=== PATIENT | female | born 1950 | race African-American/Black ===

== ENCOUNTER 2022-08-19 07:50 | Outpatient (CLI) | payer MEDICARE, MEDICAID, SELFPAY ==
--- NOTE | ~2022-08-19 | CT_ITS ---
EXAMINATION: CT diagnostic chest wo con DATE: 08/19/2022 09:36 INDICATION: Increasing cough TECHNIQUE: Computed tomography (CT) of the chest was performed without intravenous contrast. The dose -length product (DLP) was 416.30 mGy-cm. Automated exposure control and iterative reconstruction tech nique were employed. COMPARISON: None FINDINGS: The lungs are free of acute opacities. No pleural effusion or pneumothorax. No pathological ly enlarged thoracic lymph nodes are identified. The heart size is normal. Calcified coronary artery atherosclerosis is noted. The liver is diffusely low in attenuation when compared with the spleen, co nsistent with hepatic steatosis. There is moderate thoracic spondylosis. IMPRESSION: 1. No CT correlate for the patient's symptoms. 2. Coronary artery disease. 3. Diffuse hepatic steatosis Reviewed, dictated and finalized at location F.
--- NOTE | 2022-08-30 13:08 | WPDPFTINT ---
PFT Procedure Performed PFT Procedure Performed Spirometry with Pre/Post Bronchodilator Plethysmography (Lung Vol) Diffusing Cap (DLCO) Flow Vol Loop PFT Interpretation DOS: 08/19/2022 REQUESTING: Qi Valladares PA-C REASON FOR TESTING: Asthma PULMONARY FUNCTION TESTS Results are reliable and reproducible. Spirometry: Pre bronchodilator FEV1 is 1.23 L, 67% predicted, decreased. Pre bronchodilator FVC is 2.09 L, 88%, normal. FEV1/FVC ratio is 59%, decreased consistent with airflow obstruction. FEF 25-75% is 0.49 L, 31% predicted, severely decreased. After bronchodilator FEV1 increases by 23%, 1.52 L, 290 meals this is statistically significant. FVC increases by 16%, 2.44 L. This is statistically significant. The MKV67-72% increases by 16% becomes 36% predicted, 0.57 L. Lung volumes: Total lung capacity 4.91 L, 110% normal. Residual volume 2.82 L, 134% upper limit of normal. RV/TLC 57% elevated consistent with air trapping. Airway resistance is 260%, increased. Diffusion: DLCO 15.1, 75% predicted, normal. DLCO/VA is 4.47, 106% predicted, normal. Flow volume loop: There is mild scooping of the expiratory limb consistent with obstruction. IMPRESSION: Mild obstructive ventilatory impairment with excellent response to bronchodilator. Normal lung volumes. Normal diffusion. Compared to the prior study the spirometry is improved, there is less air trapping and the diffusion has normalized. Prior study 06/04/2015, the FEV1 was 53%, 1.13 L and now it is 67%, improved. FVC was 1.76 L, 60%, now 88%, improved. The patient had FEV1/FVC 64% which was low, consistent with airflow obstruction. There was a 13% increase in the FEV1 and the FVC after bronchodilator administration, the FVC exceeded 200 mL. This is a significant response to bronchodilator. The TLC was 100%, similar to currently 110% the residual volume was 164% and now 134%, it was 3.10 L and now 2.82 L so the air trapping is improved. The DLCO was 14.1, 53% now it is 15.1, 75% so percentage twice the DLCO is better. DLCO/VA was 138% now 106%. This is stable. The airway resistance previously was 386% also elevated Ruby Bae MD
== END 2022-08-19 07:51 | disposition home or self-care (01) ==
PROVIDERS: PCP Internal Medicine Infectious Disease; Visit Provider Physician Assistant
DX: J45.909 Unspecified asthma, uncomplicated (principal); I25.10 Atherosclerotic heart disease of native coronary artery without angina pectoris; K76.0 Fatty (change of) liver, not elsewhere classified; M47.814 Spondylosis without myelopathy or radiculopathy, thoracic region
CPT/HCPCS: 71250; 94060; 94726; 94729

== ENCOUNTER 2022-12-16 07:29 | Outpatient (CLI) | payer MEDICARE, MEDICAID, SELFPAY ==
--- NOTE | 2022-12-16 07:44 | ECHO_ITS ---
Patient Info Name: Macey Pratt Age: 72 years : 1950 Gender: Female Ht: 64 in Wt: 249 lbs BSA: 2.32 m2 HR: 70 bpm BP: 156 / 91 mmHg Heart Rhythm: Sinus Rhythm Technical Quality: Good Exam Date: 12/16/2022 7:49 AM Exam Location: [facility] Patient Status: Outpatient Admit Date: 12/16/2022 Staff Ordering Physician: Ruby Bae MD Financial Wellness Coach: Yamileth Stovall RDCS Attending Provider: Ruby Bae MD Referring Physician: Kathia SMILEY; Exam Type: CA echo doppler color flow Study Info Indications R06.02 - Shortness of breath Complete two-dimensional, color flow and Doppler transthoracic echocardiogram is performed. Summary 1. Complete two-dimensional, color flow and Doppler transthoracic echocardiogram is performed. 2. Left ventricular chamber dimension is normal. 3. Left ventricular systolic function is normal, estimated at 55-60%. 4. There is no increased left ventricular wall thickness. 5. The left ventricular diastolic function is grade I diastolic dysfunction. 6. Global longitudinal strain is moderately elevated at -14 %. 7. There is mild mitral valve regurgitation. 8. There is no aortic valve stenosis. 9. There is trace tricuspid valve regurgitation. 10. No pulmonary hypertension, estimated pulmonary arterial systolic pressure is 30 mmHg. Left Ventricle Left ventricular chamber dimension is normal. Left ventricular systolic function is normal, estimated at 55-60%. There is no increased left ventricular wall thickness. The left ventricular diastolic function is grade I diastolic dysfunction. Global longitudinal strain is moderately elevated at -14 %. Right Ventricle Right ventricular chamber dimension is normal. Right ventricular systolic function is normal. Left Atria Left atrial chamber dimension is normal. Right Atria Right atrial chamber dimension is normal. Aortic Valve The aortic valve is trileaflet. There is no aortic valve stenosis. There is no aortic valve regurgitation. Pulmonic Valve The pulmonic valve is not well visualized. There is trace pulmonic regurgitation. Mitral Valve The mitral valve has normal leaflets. There is mild mitral valve regurgitation. The mitral valve annulus is mildly calcified. Tricuspid Valve The tricuspid valve leaflets are normal. There is trace tricuspid valve regurgitation. No pulmonary hypertension, estimated pulmonary arterial systolic pressure is 30 mmHg. Pericardium/Pleural The pericardium appears normal. There is small pericardial effusion. Inferior Vena Cava Normal inferior vena cava with >50% collapse upon inspiration consistent with normal right atrial pressure, 5 mmHg. Aorta The aortic root size at the sinus of Valsalva is normal. There is mild aortic atherosclerosis. Left Ventricular Outflow Tract Name Value Normal LVOT 2D LVOT Diameter 2.0 cm LVOT Doppler LVOT Peak Gradient 5 mmHg LVOT Mean Gradient 3 mmHg LVOT VTI 28 cm LVOT VTI/AV VTI Ratio 0.8 L
== END 2022-12-16 07:30 | disposition home or self-care (01) ==
LOC: ANHCARD 07:31
PROVIDERS: PCP Internal Medicine Infectious Disease; Visit Provider Internal Medicine Critical Care Medicine
DX: R06.02 Shortness of breath (principal); I34.0 Nonrheumatic mitral (valve) insufficiency
CPT/HCPCS: 93306

== ENCOUNTER 2023-09-14 10:42 | Outpatient (CLI) | payer MEDICARE, MEDICAID, SELFPAY ==
[2023-09-14 11:12] LABS: Basophils Percent Auto 0.4 % (0.2-1.2); Eosinophils Absolute Auto 0.4 K/mm3 (0-0.3); Eosinophils Percent Auto 5.1 % (0-4.4); Hematocrit 39.7 % (37.0-47.0); Hemoglobin 13.1 g/dL (12.0-15.0); Immature Granulocyte Absolute 0.05 K/mm3 (0.00-0.031); Immature Granulocyte Percent A 0.7 % (0-0.5); Lymphocytes Absolute Auto 2.42 K/mm3 (0.9-3.2); Lymphocytes Percent Auto 35.4 % (18.3-44.2); Mean Corpuscular Hemoglobin 30.8 pg (26-34); Mean Corpuscular Volume 93.2 fl (80-100); Mean Platelet Volume 9.7 fl (7.4-10.4); Monocytes Absolute Auto 0.5 K/mm3 (0.1-0.6); Monocytes Percent Auto 7.9 % (2.6-8.5); Neutrophils Absolute Auto 3.5 K/mm3 (1.3-6.7); Neutrophils Percent Auto 50.5 % (45.5-73.1); Platelet Count Result 250 k/mm3 (150-375); Red Blood Count 4.26 M/mm3 (4.2-5.4); Red Cell Distribution Width 13.2 % (11.5-14.5); White Blood Count 6.8 K/mm3 (4.5-10.0)
[2023-09-14 16:58] LABS: Alanine Aminotransferase 29 U/L (6-35); Albumin Level 4.4 g/dL (3.5-5.1); Alkaline Phosphatase 82 U/L (38-126); Anion Gap 8 mmol/L (8-16); Aspartate Amino Transferase 37 U/L (14-36); Bilirubin,Total 0.8 mg/dL (0.2-1.3); Blood Urea Nitrogen 13 mg/dL (7-17); Carbon Dioxide 32 mmol/L (22-30); Chloride 98 mmol/L (98-107); Estimated Glomerular Filt Rate > 60; Glucose 105 mg/dL (65-110); Potassium 3.3 mmol/L (3.4-5.0); Sodium 138 mmol/L (137-145)
[2023-09-14 17:22] LABS: Immunoglobulin A 117 mg/dL (70-400); Immunoglobulin M 40 mg/dL (40-230)
[2023-09-14 19:25] LABS: Immunoglobulin G 2867 mg/dL (700-1600)
[2023-09-17 20:32] LABS: Kappa\\Lambda Light Chains 0.17 (0.26-1.65); Lambda Light Chain 116.3 mg/L (5.7-26.3)
[2023-09-18 12:26] LABS: Abnormal Protein Band 1 1.7 g/dL; Albumin 4.1 g/dL (3.8-4.8); Alpha 1 Globulin 0.3 g/dL (0.2-0.3); Alpha 2 Globulin 0.9 g/dL (0.5-0.9); Beta 1 Globulin 0.5 g/dL (0.4-0.6); Gamma Globulin 2.2 g/dL (0.8-1.7); Protein, Total 8.4 g/dL (6.1-8.1)
== END 2023-09-14 10:43 | disposition home or self-care (01) ==
PROVIDERS: PCP Internal Medicine Infectious Disease; Visit Provider Internal Medicine Hematology & Oncology
DX: D72.9 Disorder of white blood cells, unspecified (principal)
CPT/HCPCS: 36415; 80053; 82784; 83883; 84155; 84165; 85025

== ENCOUNTER 2023-10-11 00:31 | Day surgery (SDC) | payer MEDICARE, MEDICAID, SELFPAY ==
[2023-10-10 17:24] VITALS: BMI 40.4
--- NOTE | ~2023-10-11 | BM_ITS ---
EXAMINATION: CCL bone marrow asp w bx diag ORDER COMPLETED DATE: 10/11/2023 09:49 INDICATION: Plasma cell disorder TECHNIQUE: A time-out was performed to verify the patient's name, date of , and procedure to b e performed. The procedure including the risks, benefits, and alternatives was discussed with the pat ient. Risks discussed included bleeding and infection. The patient understood the risks and agreed to proceed. The skin overlying the right posterior iliac spine was prepped and draped in usual sterile fashion. Anesthetic was administered with 1% lidocaine subcutaneously. Systemic analgesia was provide d with 50 mcg fentanyl IV. An 11 gauge needle was inserted into the ilium with fluoroscopic guidance. Bone marrow was aspirated. An 8 gauge needle was then inserted into the ilium with fluoroscopic guid ance. A core bone marrow biopsy was obtained. There were no immediate complications. Fluoroscopy expo sure time was 0.1 minutes. The total number of images was 18. FINDINGS: Real-time fluoroscopy demonstrates a marker overlying the right posterior iliac spine. IMPRESSION: 1. Successful fluoro-guided bone marrow aspiration. 2. Successful fluoro-guided bone marrow core biopsy. Reviewed, dictated and finalized at location A. HOUSE LOGISTICS COORDINATOR
[2023-10-11 07:57] VITALS: BP 143/71; PULSE 77; RESP 15; TEMP 36.3; O2SAT 99; BMI 38.0
[2023-10-11 08:07] LABS: Basophils Percent Auto 0.4 % (0.2-1.2); Eosinophils Percent Auto 0.7 % (0-4.4); Hematocrit 39.1 % (37.0-47.0); Hemoglobin 12.7 g/dL (12.0-15.0); Immature Granulocyte Absolute 0.03 K/mm3 (0.00-0.031); Immature Granulocyte Percent A 0.5 % (0-0.5); Lymphocytes Absolute Auto 2.51 K/mm3 (0.9-3.2); Lymphocytes Percent Auto 44.8 % (18.3-44.2); Mean Corpuscular HGB Conc 32.5 g/dl (32-36); Mean Corpuscular Hemoglobin 30.2 pg (26-34); Mean Corpuscular Volume 92.9 fl (80-100); Mean Platelet Volume 9.5 fl (7.4-10.4); Monocytes Absolute Auto 0.6 K/mm3 (0.1-0.6); Monocytes Percent Auto 10.4 % (2.6-8.5); Neutrophils Absolute Auto 2.4 K/mm3 (1.3-6.7); Neutrophils Percent Auto 43.2 % (45.5-73.1); Platelet Count Result 358 k/mm3 (150-375); Red Blood Count 4.21 M/mm3 (4.2-5.4); Red Cell Distribution Width 13.9 % (11.5-14.5); White Blood Count 5.6 K/mm3 (4.5-10.0)
--- NOTE | 2023-10-11 09:04 | WPDMODSED ---
Moderate Sedation Note-Pt Data Patient Data Diagnosis: MGUS Present Complaint: MGUS Procedure to be performed/Plan: bone marrow biopsy Allergies Allergy/AdvReac Type Severity Reaction Status Date / Time egg Allergy Unknown Rash Verified 10/11/23 07:55 latex Allergy Unknown Hives Verified 10/11/23 07:55 adhesive Allergy Rash Verified 10/11/23 07:55 chicken derived Allergy Hives Verified 10/11/23 07:55 atorvastatin AdvReac Unknown Cramping Verified 10/11/23 07:55 of the Muscles rosuvastatin AdvReac Unknown Cramping Verified 10/11/23 07:55 of the Muscles Home Medications Medication Instructions Recorded Confirmed Type Black Elderberry 4,000 mg PO DAILY 03/06/20 10/10/23 History cod liver oil 2 cap PO HS 03/06/20 10/10/23 History cyanocobalamin (vitamin B-12) 2,500 mcg sublingual DAILY 03/06/20 10/10/23 History 2,500 mcg sublingual tablet (Vitamin B-12) aspirin 81 mg tablet,delayed 81 mg PO DAILY 04/28/20 10/10/23 History release (Adult Aspirin Regimen) ergocalciferol (vitamin D2) 1,250 1,250 mcg PO MONTHLY 04/28/20 10/10/23 History mcg (50,000 unit) capsule (Vitamin D2) fenofibrate 160 mg tablet 160 mg PO DAILY 04/28/20 10/10/23 History hydrochlorothiazide 25 mg tablet 25 mg PO DAILY 04/28/20 10/10/23 History metformin 850 mg tablet 850 mg PO QACDINNER 04/28/20 10/10/23 History montelukast 10 mg tablet 10 mg PO HS 04/28/20 10/10/23 History omeprazole 20 mg capsule,delayed 20 mg PO DAILY 04/28/20 10/10/23 History release ezetimibe 10 mg tablet 10 mg PO DAILY 05/01/20 10/10/23 History memantine 10 mg tablet 10 mg PO DAILY 05/01/20 10/10/23 History metoprolol succinate 200 mg 200 mg PO DAILY 05/01/20 10/10/23 History tablet,extended release 24 hr fluticasone propionate 50 1 spray intranasal BID #16 grams 08/02/22 10/10/23 Rx mcg/actuation nasal spray,suspension (Flonase Allergy Relief) fluticasone furoate 100 1 inh inhalation DAILY 03/28/23 10/10/23 History mcg-vilanterol 25 mcg/dose inhalation powder (Breo Ellipta) ascorbate calcium (vitamin C) 500 500 mg PO DAILY 08/23/23 10/10/23 History mg tablet vitamin E (dl, acetate) 45 mg (100 45 mg PO DAILY 08/23/23 10/10/23 History unit) capsule prednisone 10 mg tablet See Rx Instructions PO DAILY #34 09/27/23 10/10/23 Rx tabs acetaminophen 325 mg tablet 650 mg PO Q6H PRN Pain (Scale 10/10/23 10/10/23 History Score 1-3) albuterol sulfate 90 mcg/actuation 2 puff inhalation Q4-6H PRN 10/10/23 10/11/23 History aerosol inhaler (Ventolin HFA) Wheezing semaglutide 0.25 mg or 0.5 mg (2 0.25 mg subcut WEEKLY 10/10/23 10/10/23 History mg/3 mL) subcutaneous pen injector (Ozempic) Sedation/Anesthesia: No previous sedation/anesthesia problems (including family history). [facility] Past Medical History Medical History Asthma Essential hypertension GERD (gastroesophageal reflux disease) Shortness of Breath Type 2 diabetes mellitus Family History Family History Mother Cerebrovascular accident, Onset Age: 70 Family history of rheumatoid arthritis, Onset Age: 70 Grandparent Family history of malignant neoplasm of ovary, Onset Age: 82 Father Patient's father is in good health Other Diabetes mellitus Hypertension Social History Social History Smoking packs per day: 0 Smoking cigarettes per day: 0.0 Years smoked: 0 Smoking pack-years: 0.00 Smoking status: Never smoker Second hand tobacco smoke exposure: No Alcohol intake: never Substance use type: does not use Living arrangements: alone Mod Sed Physical Exam Physical Exam Pre Procedural Exam: Normal: Appearance, Eyes, Throat, Lungs, Heart Rate, Heart Rhythm and Abdomen Hours since solid foods: 15 Hours since liquid intake: 15 Mallampati Cla
[2023-10-11 09:45] VITALS: BP 131/65; PULSE 68; RESP 18; O2SAT 100
[2023-10-11 10:00] VITALS: BP 122/65; PULSE 71; RESP 18; O2SAT 99
[2023-10-11 10:15] VITALS: BP 119/66; PULSE 68; RESP 15; O2SAT 99
[2023-10-11 10:30] VITALS: BP 124/64; PULSE 71; RESP 17; O2SAT 97
[2023-10-11 10:47] VITALS: BP 114/50; PULSE 67; RESP 14; O2SAT 99
== END 2023-10-11 09:55 | disposition home or self-care (01) ==
PROVIDERS: Radiology Diagnostic Radiology; PCP Internal Medicine Infectious Disease; Visit Provider Radiology Diagnostic Radiology
DX: C90.00 Multiple myeloma not having achieved remission (principal); D47.2 Monoclonal gammopathy; J45.909 Unspecified asthma, uncomplicated; I10 Essential (primary) hypertension; K21.9 Gastro-esophageal reflux disease without esophagitis; E11.9 Type 2 diabetes mellitus without complications; Z79.82 Long term (current) use of aspirin; Z79.84 Long term (current) use of oral hypoglycemic drugs; Z79.51 Long term (current) use of inhaled steroids; Z79.85 Long-term (current) use of injectable non-insulin antidiabetic drugs
CPT/HCPCS: 36415; 38222; 85025; 85610; 88184; 88185; 88305; 88311; 88313; 88341; 88342; 88364; 88365; J1642; J2250; J3010; J7040

== ENCOUNTER 2023-11-03 09:11 | Outpatient (CLI) | payer MEDICARE, MEDICAID, SELFPAY ==
--- NOTE | ~2023-11-03 | PE_ITS ---
EXAMINATION: PET skull to mid thigh DATE: 11/03/2023 13:08 INDICATION: Multiple myeloma. TECHNIQUE: Blood glucose level was 100 mg/dL. 9.474 mCi of 18-fluorodeoxyglucose (18-FDG) was adminis tered i.v. Low dose computed tomography (CT) images were acquired from the base of the brain to the p roximal thighs for attenuation correction and anatomic localization. Automated exposure control was e mployed. Dose-length product (DLP) was 1134 mGy-cm. Positron emission tomography (PET) images were ac quired in the same distribution. COMPARISON: Chest CT 08/19/2022 FINDINGS: Head/neck: There is mucosal thickening in the paranasal sinuses. There are no pathologically enlarged lymph nodes. Chest: There is no pneumonia or pleural effusion. The heart size is normal. There are coronary artery calcifications. No pericardial effusion. Abdomen/pelvis/proximal thighs: There is diffuse hepatic steatosis. There are changes of cholecystect angelica. The spleen, pancreas, and right adrenal gland are normal. There is chronic thickening of left ad renal gland, likely benign. The kidneys are normal. There is diverticulosis of the colon without evid ence of diverticulitis. There are no dilated loops of bowel. The appendix is normal. There are no pat hologically enlarged lymph nodes. There is no free intraperitoneal fluid. There is no osseous maligna ncy. IMPRESSION: 1. No evidence of multiple myeloma. Reviewed, dictated and finalized at location A. RATORY TECHNOLOGIST
[2023-11-03 09:38] LABS: Glucose Point of Care 100 mg/dl (65-105)
== END 2023-11-03 09:12 | disposition home or self-care (01) ==
PROVIDERS: PCP Internal Medicine Infectious Disease; Visit Provider Internal Medicine Hematology & Oncology
DX: C90.00 Multiple myeloma not having achieved remission (principal)
CPT/HCPCS: 78815; A9552

== ENCOUNTER 2024-04-06 09:13 | Outpatient (CLI) | payer MEDICARE, MEDICAID, SELFPAY ==
[2024-04-06 09:29] LABS: Basophils Percent Auto 0.7 % (0.2-1.2); Eosinophils Absolute Auto 0.3 K/mm3 (0-0.3); Eosinophils Percent Auto 5.3 % (0-4.4); Hematocrit 38.2 % (37.0-47.0); Hemoglobin 12.4 g/dL (12.0-15.0); Immature Granulocyte Absolute 0.04 K/mm3 (0.00-0.031); Immature Granulocyte Percent A 0.7 % (0-0.5); Lymphocytes Absolute Auto 2.08 K/mm3 (0.9-3.2); Lymphocytes Percent Auto 35.4 % (18.3-44.2); Mean Corpuscular HGB Conc 32.5 g/dl (32-36); Mean Corpuscular Hemoglobin 30.7 pg (26-34); Mean Corpuscular Volume 94.6 fl (80-100); Mean Platelet Volume 9.8 fl (7.4-10.4); Monocytes Absolute Auto 0.4 K/mm3 (0.1-0.6); Monocytes Percent Auto 7.5 % (2.6-8.5); Neutrophils Percent Auto 50.4 % (45.5-73.1); Platelet Count Result 222 k/mm3 (150-375); Red Blood Count 4.04 M/mm3 (4.2-5.4); White Blood Count 5.9 K/mm3 (4.5-10.0)
[2024-04-06 12:54] LABS: Alanine Aminotransferase 15 U/L (6-35); Albumin Level 4.2 g/dL (3.5-5.1); Alkaline Phosphatase 64 U/L (38-126); Anion Gap 2 mmol/L (4-12); Aspartate Amino Transferase 24 U/L (14-36); Bilirubin,Total 0.5 mg/dL (0.2-1.3); Blood Urea Nitrogen 11 mg/dL (7-17); Calcium 9.1 mg/dL (8.4-10.2); Carbon Dioxide 29 mmol/L (22-30); Chloride 106 mmol/L (98-107); Estimated Glomerular Filt Rate > 60; Glucose 113 mg/dL (65-110); Potassium 3.8 mmol/L (3.4-5.0); Sodium 137 mmol/L (137-145)
[2024-04-06 13:02] LABS: Immunoglobulin A 88 mg/dL (70-400); Immunoglobulin G 2487 mg/dL (700-1600); Immunoglobulin M 37 mg/dL (40-230)
[2024-04-08 06:48] LABS: Protein, Total 7.8 g/dL (6.1-8.1)
[2024-04-09 11:18] LABS: Kappa\\Lambda Light Chains 0.14 (0.26-1.65); Lambda Light Chain 95.1 mg/L (5.7-26.3)
[2024-04-10 08:24] LABS: Abnormal Protein Band 1 1.6 g/dL (NONE DETECTED); Albumin 4.1 g/dL (3.8-4.8); Alpha 1 Globulin 0.3 g/dL (0.2-0.3); Alpha 2 Globulin 0.8 g/dL (0.5-0.9); Beta 1 Globulin 0.4 g/dL (0.4-0.6)
== END 2024-04-06 09:14 | disposition home or self-care (01) ==
LOC: ANHLAB 09:16
PROVIDERS: PCP Internal Medicine Infectious Disease; Visit Provider Internal Medicine Hematology & Oncology
DX: C90.00 Multiple myeloma not having achieved remission (principal)
CPT/HCPCS: 36415; 80053; 82784; 83883; 84155; 84165; 85025

== ENCOUNTER 2024-09-04 09:09 | Outpatient (CLI) | payer MEDICARE, MEDICAID, SELFPAY ==
[2024-09-04 09:42] LABS: Basophils Percent Auto 0.6 % (0.2-1.2); Eosinophils Absolute Auto 0.2 K/mm3 (0-0.3); Eosinophils Percent Auto 2.6 % (0-4.4); Hematocrit 42.8 % (37.0-47.0); Immature Granulocyte Absolute 0.04 K/mm3 (0.00-0.031); Immature Granulocyte Percent A 0.6 % (0-0.5); Lymphocytes Percent Auto 38.8 % (18.3-44.2); Mean Corpuscular HGB Conc 32.7 g/dl (32-36); Mean Corpuscular Hemoglobin 30.6 pg (26-34); Mean Corpuscular Volume 93.4 fl (80-100); Mean Platelet Volume 9.9 fl (7.4-10.4); Monocytes Absolute Auto 0.5 K/mm3 (0.1-0.6); Monocytes Percent Auto 8.6 % (2.6-8.5); Neutrophils Percent Auto 48.8 % (45.5-73.1); Platelet Count Result 246 k/mm3 (150-375); Red Blood Count 4.58 M/mm3 (4.2-5.4); Red Cell Distribution Width 13.1 % (11.5-14.5); White Blood Count 6.2 K/mm3 (4.5-10.0)
[2024-09-04 11:45] LABS: Potassium 3.5 mmol/L (3.4-5.0)
[2024-09-04 11:47] LABS: Alanine Aminotransferase 16 U/L (6-35); Albumin Level 4.6 g/dL (3.5-5.1); Alkaline Phosphatase 68 U/L (38-126); Anion Gap 10 mmol/L (4-12); Aspartate Amino Transferase 23 U/L (14-36); Bilirubin,Total 0.7 mg/dL (0.2-1.3); Blood Urea Nitrogen 17 mg/dL (7-17); Calcium 9.9 mg/dL (8.4-10.2); Carbon Dioxide 32 mmol/L (22-30); Chloride 96 mmol/L (98-107); Estimated Glomerular Filt Rate 59; Glucose 101 mg/dL (65-110); Sodium 138 mmol/L (137-145)
[2024-09-04 12:41] LABS: Immunoglobulin A 98 mg/dL (70-400); Immunoglobulin M 45 mg/dL (40-230)
[2024-09-04 12:46] LABS: Immunoglobulin G 3229 mg/dL (700-1600)
[2024-09-05 15:19] LABS: Protein, Total 8.7 g/dL (6.1-8.1)
[2024-09-10 16:14] LABS: Kappa\\Lambda Light Chains 0.12 (0.26-1.65); Lambda Light Chain 119.9 mg/L (5.7-26.3)
== END 2024-09-04 09:10 | disposition home or self-care (01) ==
LOC: ANHLAB 09:14
PROVIDERS: PCP Internal Medicine Infectious Disease; Visit Provider Internal Medicine Hematology & Oncology
DX: C90.00 Multiple myeloma not having achieved remission (principal)
CPT/HCPCS: 36415; 80053; 82784; 83883; 84155; 84165; 85025

== ENCOUNTER 2025-05-29 06:50 | Inpatient (IN) | payer MEDICARE, MEDICAID, SELFPAY ==
[2025-05-29] VITALS (37 sets, daily range): BP systolic 142–181; BP diastolic 65–94; PULSE 66–122; RESP 14–26; TEMP 36.6–37; O2SAT 94–100; BMI 40.1
--- NOTE | 2025-05-29 | ECHO_ITS ---
Patient Info Name: Macey Pratt Age: 74 years : 1950 Gender: Female Ht: 64 in Wt: 231 lbs BSA: 2.23 m2 Technical Quality: Good Exam Date: 05/29/2025 2:41 PM Patient Status: I Admit Date: 05/29/2025 Exam Type: CA echo doppler color flow Complete two-dimensional, color flow and Doppler transthoracic echocardiogram is performed. Staff Referring Physician: Sigifredo Riddle MD Occupational Therapy Supervisor: Ginger King Attending Provider: Uziel Chen MD Summary 1. Complete two-dimensional, color flow and Doppler transthoracic echocardiogram is performed. 2. Left ventricular chamber dimension is normal. 3. Left ventricular systolic function is normal, estimated at 60-65. 4. The left ventricular diastolic function is grade I diastolic dysfunction. 5. E/e' 10 is mildly elevated. 6. Left atrial chamber dimension is mildly enlarged. 7. There is mild aortic valve sclerosis. 8. There is trace mitral valve regurgitation. 9. Mild pulmonary hypertension, estimated pulmonary arterial systolic pressure is 41 mmHg. Left Ventricle E/e' 10 is mildly elevated. Left ventricular chamber dimension is normal. Left ventricular systolic function is normal, estimated at 60-65. The left ventricular diastolic function is grade I diastolic dysfunction. Right Ventricle Right ventricular chamber dimension is normal. Right ventricular systolic function is normal and with normal TAPSE 2.7 cm. Left Atria Left atrial chamber dimension is mildly enlarged. Right Atria Right atrial chamber dimension is normal. Aortic Valve The aortic valve is trileaflet. There is mild aortic valve sclerosis. There is no aortic valve stenosis. There is no aortic valve regurgitation. Pulmonic Valve There is no pulmonic regurgitation. Mitral Valve There is no mitral valve stenosis. There is trace mitral valve regurgitation. Tricuspid Valve There is no tricuspid valve regurgitation. Mild pulmonary hypertension, estimated pulmonary arterial systolic pressure is 41 mmHg. Pericardium/Pleural There is no pericardial effusion. Inferior Vena Cava Normal inferior vena cava with >50% collapse upon inspiration consistent with normal right atrial pressure, 5 mmHg. Aorta The aortic root size at the sinus of Valsalva is normal. Left Ventricular Outflow Tract Name Value Normal LVOT 2D LVOT Diameter 2.2 cm LVOT Doppler LVOT Peak Velocity 125 cm/s LVOT Peak Gradient 6 mmHg LVOT Mean Gradient 4 mmHg LVOT VTI 28 cm LVOT VTI/AV VTI Ratio 0.7 LVOT Stroke Volume 105 ml LVOT CO 8.0 l/min LVOT CI 3.6 l/min/m2 Pulmonic Valve Name Value Normal PV Doppler PV Peak Velocity 124 cm/s PV Peak Gradient 6 mmHg Mitral Valve Name Value Normal MV Diastolic Function MV E Peak Velocity 105 cm/s MV A Peak Velocity 137 cm/s MV E/A 0.8 MV Decel Time (PW) 208 ms MV Annular TDI MV E/e' (Septal) 14.4 MV E/e' (Lateral) 8.6 MV E/e' (Average) 11.5 Tricuspid Valve Name Value Normal TV Regurgitation Doppler TR Peak Velocity 299 cm/s TR Peak Gradient 24 mmHg Estimated PAP/RSVP RA Pressure 5 mmHg <=5 PA Systolic Pressure 41 mmHg <36 RV Systolic Pressure 41 mmHg <36 TV Annular TDI TV Lateral Kita s' Velocity 12.1 cm/s >=9.5 Aortic Valve Name Value Normal AV Doppler AV Peak Velocity 193 cm/s AV Peak Gradient 15 mmHg AV Mean Gradient 8 mmHg AV VTI 43 cm AV Area (Cont Eq VTI) 2.5 cm2 >=3.0 AV Area (Cont Eq Travon) 2.4 cm2 AV DI (Travon) 0.64 AV Regurgitation 2D LVOT Area 3.8 cm2 Ventricles Name Value Normal LV Dimensions 2D/MM IVS Diastolic Thickness (2D) 0.9 cm 0.6-1.0 LVID Diastole (2D) 4.0 cm 3.8-5.2 LVIW Diastolic Thickness (2D) 0.9 cm 0.6-0.9 LVID Systole (2D) 3.0 cm 2.2-3.5 LVOT Diameter 2.2 cm LV Mass (2D Cubed) 110.94 g 67.00-162.00 LV Mass Index (2D Cubed) 50 g/m2 43-95 Relative Wall Thickness (2D) 0.45 <=0.42 LV Fractional Shortening/Ejection Fraction 2D/MM LV Fractional Shortening (2D) 24 % 27-45 LV EF (2D Teichholz) 48 % LV Diastolic Volume (4C MOD) 108 ml LV EF (4C MOD) 61 % LV Diastolic Volume (2C MOD) 89 ml LV EF (2C MOD) 53 % LV Diastolic Volume (BP MOD) 99 ml 46-106 LV Diastolic Volume Index (BP MOD) 44 ml/m2 29-61 LV Systolic Volume (BP MOD) 42 ml 14-42 LV Systolic Volume Index (BP MOD) 19 ml/m2 8-24 LV EF (BP MOD) 58 % 54-74 LV Diastolic Length (4C) 8.9 cm LV Systolic Length (4C) 7.5 cm LV Stroke Volume (4C MOD) 66 ml Atria Name Value Normal LA Dimensions LA Volume (4C A-L) 63 ml LA Volume (BP A-L) 68 ml RA Dimensions RA Systolic Major [place] Length (4C) 4.6 cm 2.2-2.8 RA Area (4C) 15.3 cm2 <=18.0 Report Signatures
--- NOTE | ~2025-05-29 | XR_ITS ---
EXAMINATION: XR chest 2V 05/29/2025 07:28 INDICATION: Left-sided chest pain PROCEDURE: 2 view chest COMPARISON: Comparison to multiple prior studies sequentially, with oldest reviewed study dated 04/28. FINDINGS: The lungs are clear. The cardiomediastinal silhouette is within normal limits. There are no pleural effusions. There is no pneumothorax suspected. IMPRESSION: 1: NO ACUTE CARDIOPULMONARY DISEASE. Reviewed, dictated and finalized at location A.
--- NOTE | ~2025-05-29 | CT_ITS ---
EXAMINATION: CT abdomen pelvis w con DATE: 05/29/2025 08:08 INDICATION: Epigastric pain. TECHNIQUE: Computed tomography (CT) of the abdomen and pelvis was performed with 100 cc Omnipaque 350 intravenous contrast. The dose-length product was 1431.84 mGy-cm. Automated exposure control and iterative reconstruction technique were employed. COMPARISON: None. FINDINGS: Lung bases unremarkable. No significant pleural or pericardial effusion. Heart size normal. Fatty infiltration of the liver. Status post cholecystectomy. The spleen, pancreas, adrenal glands a nd kidneys are unremarkable. However unremarkable. Status post cholecystectomy. Colonic diverticulosi s without evidence for diverticulitis. Small hiatal hernia. No significant vascular abnormality. No l ymphadenopathy. There is cirrhosis of the liver. No free air or free fluid. No abnormal pelvic masses or fluid collections. Severe lumbar spondylosis. IMPRESSION: 1. No acute abdominal abnormality. 2: Cirrhosis of the liver with fatty infiltration. 3: Status post cholecystectomy with expected prominence of the bile ducts. Reviewed, dictated and finalized at location A.
--- NOTE | 2025-05-29 06:51 | ECG_ITS ---
Test Date: 2025-05-29 06:56:41 Measurements Intervals [place] Rate: 87 P: 48 DE: 171 QRS: 36 QRSD: 78 T: 27 QT: 358 QTc: 431 Interpretive Statements SINUS RHYTHM NONSPECIFIC ST ABNORMALITY ABNORMAL ECG No previous ECG available for comparison Electronically Signed On 05-29-2025 10:07:16 CDT by Robert Victor M.D.
--- OUTSIDE RECORDS SUMMARY | 2025-05-29 06:51 | XMS_ITS | Continuity of Care Document ---
Author Organization [facility] Address [id number] [place] [address] [address] [place] [address] Phone Care Team Providers Care Photographer Scientific Name Role Phone Marta Sabillon Unavailable Unavailable Procedures Procedure Date Eye Exam & Treatment Eye Exam & Treatment Advance Directives Directive Yes / No Effective Date File Name No Information Encounters Encounter Description Practice Location Reason(s) For Visit Diagnoses Date Provider Providers Copied on Encounter [facility], [address] [place] [address] [address], [place], [place], [id number], tel:[phone] [facility] No Information [id number] Ramandeep Lozano. [address] , [address], [place], [place], [facility], . tel:[phone] [facility], [address] [place] [address] [address], [place], [place], [id number], tel:[phone] [facility] No Information [address] Ramandeep Lindsey [address] , [address], [place], [place], [facility], . tel:[phone] Family History Family Member Type Diagnosis Age At Onset No Information Payers Payer name Insurance type Covered republican ID Authorlibbya nielsjennyfer(s) Medicaid [facility] [id number] Social History Type Description Quantity Date Captured Comments Sex Female Smoking Status No Information Chief Complaint And Reason For Visit No Information Reason For Referral Reason For Referral No Information History Of Present Illness Encounter Date Complaint History Of Prese nt Illness No Information Functional Status Date Functional Assessmen t No Information Instructions Date Instruction Additional Infor mation No Information Assessments Type Assessment Date No Information Patient Care Teams Name Effective Dates (start - stop) Status Members No Information
--- OUTSIDE RECORDS SUMMARY | 2025-05-29 06:52 | XMS_ITS | Clinical Summary ---
Author Organization [facility] Address [address] [place] [id number] Care Team Providers Care Tool Maintenance Worker Name Role Phone Daly Servin MD Primary Care Provider Zofia Ordaz MD Unavailable [phone] Romeo Ascencio MD Unavailable Allergies Active Allergy Reactions Criticality Noted Date Comments Adhesive Hives,Rash Medium 11/20/2019 Atorvastatin Unknown 11/02/2012 Chicken Derived Hives High 04/20/2019 Egg Shortness of breath,Hives High Latex Hives,Rash Medium 06/14/2017 Rosuvastatin Calcium Unknown 08/31/2012 Medications ergocalciferol (VITAMIN D) 50,000 unit capsule TK ONE C PO Q WEEK 3 7 Active ZETIA 10 mg tablet 7 Active ipratropium-albut peña (DUO-NEB) 0.5-2.5 mg/3 mL nebulizer solutionIndicatio ns:Chronic Obstructive Pulmonary Disease with Bronchospasms 11 7 Active metFORMIN (GLUCOPHAGE) 850 mg tablet Take 1 tablet (850 mg total) by mouth 2 (two) times a day with meals Active metoprolol XL (TOPROL-XL) 100 mg 24 hr tablet Take 1 tablet (100 mg total) by mouth daily Active hydroCHLOROthiazi de (HYDRODIURIL) 25 mg tablet Take 1 tablet (25 mg total) by mouth daily Active montelukast (SINGULAIR) 10 mg tablet Take 1 tablet (10 mg total) by mouth nightly Active albuterol HFA (PROVENTIL HFA,VENTOLIN HFA,PROAIR HFA) 90 mcg/actuation inhaler Inhale 90 puffs Acti ve fluticasone-vilan terol (BREO ELLIPTA) 200-25 mcg/dose diskus inhaler 25-200 Disk. 8 Active ipratropium (ATROVENT HFA) 17 mcg/actuation inhaler Inhale 17 puffs 4 times daily Active cholecalciferol (VITAMIN D-3) 50,000 unit capsule Take 1 capsule (50,000 Units total) by mouth once a week Active fluticasone propion-salmetero l (ADVAIR DISKUS) 250-50 mcg/dose diskus inhaler Advair Diskus 250 mcg-50 mcg/dose powder for inhalation Active lisinopril (PRINIVIL,ZESTRIL ) 20 mg tabletIndications :hypertension Take 1 tablet (20 mg total) by mouth every morning Active cyanocobalamin (Vitamin B-12) 1,000 mcg/mL injectionIndicati ons:Prevention of Vitamin B12 Deficiency Inject 1 mL (1,000 mcg total) into the muscle as instructed every 30 (thirty) days Active oxyCODONE (ROXICODONE) solution 5 mg/5 mLIndications:Kadie n Take 5 mL (5 mg total) by mouth every 4 (four) hours as needed for pain 75 mL 0 Active Additional Information Patient not taking.Reported on 01/16/2025 docusate sodium (COLACE) 100 mg capsuleIndication s:constipation Take 1 capsule (100 mg total) by mouth 2 (two) times a day 30 capsule 0 Active Additional Information Patient not taking.Reported on 01/16/2025 ondansetron (ZOFRAN) 4 mg tablet Take 1 tablet (4 mg total) by mouth every 6 (six) hours as needed for nausea or vomiting 20 tablet 2 0 Active Additional Information Patient not taking.Reported on 01/16/2025 acetaminophen (TYLENOL) 325 mg tablet Take 2 tablets (650 mg total) by mouth every 6 (six) hours as needed for pain 30 tablet 0 Active azithromycin (Zithromax) 250 mg tablet Take 2 tablets (500 mg total) by mouth daily 11/11/201 3 Active cloNIDine (CATAPRES) 0.1 mg tablet Take 1 tablet by mouth every 8 hours 3 Active furosemide (LASIX) 20 mg tablet Take 1 tablet by mouth daily 3 Active omeprazole (PriLOSEC) 40 mg capsule Take 1 capsule by mouth daily 3 Active tiotropium (Spiriva with HandiHaler) 18 mcg per inhalation capsule Place 1 puff (1 capsule total) into inhaler and inhale daily 3 Active memantine (NAMENDA) 10 mg tabletIndications :Late onset Alzheimer's disease without behavioral disturbance (HCC) Take 1 tablet (10 mg total) by mouth 2 (two) times a day 60 tablet 0 Active ascorbic acid (vitamin C) 100 mg tablet Take 1 tablet (100 mg total) by mouth daily Active aspirin 81 mg enteric coated tablet Take 1 tablet (81 mg total) by mouth daily Active pseudoephedrine (Sudafed) 30 mg tablet Take 1 tablet (30 mg total) by mouth every 4 (four) hours as needed Active Ozempic 0.25 mg or 0.5 mg (2 mg/3 mL) pen injector injection INJECT 0.25MG UNDER THE SKIN ONCE A WEEK Active blood-glucose meter (Accu-Chek Guide Glucose Meter) misc USE DIRECTED TO TEST THREE DAYS A WEEK Active lancets (Accu-Chek Softclix Lancets) misc USE THREE DAYS A WEEK TO TEST Active donepeziL (ARICEPT) 10 mg tablet Take half tablet by mouth once a day for two weeks, then one tablet once a day 30 tablet 5 Active Active Problems Problem Noted Date Diagnosed Date 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 Overview (09/11/2019): Added automatically from request for surgery [id number] Calculus of gallbladder with out cholecystitis without obstruction 09/11/2019 Overview (09/11/2019): Added automatically from request for surgery [id number] Morbid obesity with BMI of 40.0-44.9, adult 06/2019 Endometrial cancer 01/09/2018 Type 2 diabetes mellitus 11/21/2017 Osteoporosis 11/21/2017 Gastroesophageal reflux disease 11/21/2017 Hypertension 11/03/2017 Hyperlipidemia 11/03/2017 Asthma 11/03/2017 Arthritis 11/03/2017 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 Paraproteinemia 06/30/2017 Mild late onset Alzheimer dementia 06/14/2017 Surgical History Surgery Date Site/Laterality Comments ROBOTIC ASSISTED HYSTERECTOMY 01/05/2018 - 02/04/2018 Bilateral BSO/SLN Bx HYSTERECTOMY TOTAL KNEE ARTHROPLASTY 11/07/2012 - 11/06/2013 Left TOTAL KNEE ARTHROPLASTY 11/07/2011 - 11/06/2012 Right TUBAL LIGATION 11/07/1973 - 11/06/1974 DILATION AND CURETTAGE OF UTERUS 12/08/2017 - 01/04/2018 BREAST EXCISIONAL BIOPSY Bilateral 2 on right, 1 on left CHOLECYSTECTOMY 11/07/2019 - 11/06/2020 Medical History Medical History Date Comments Cataracts, bilateral HTN (hypertension) Diabetes (HCC) Arthritis Gallstones Hiatal hernia Alzheimer disease (HCC) HLD (hyperlipidemia) Asthma Anemia Monoclonal gammopathy GERD (gastroesophageal reflux disease) Endometrial cancer (HCC) Family History Medical History Relation Name Comments Hypertension Daughter Uterine cancer Maternal Grandmother PONV Mother Stroke Mother Diabetes type II Son Hypertension Son Relation Name Status Comments Daughter Maternal Grandmother Mother Son Social History Tobacco Use Types Packs/Day Years Used Date Smoking Tobacco: Never Smokeless Tobacco: Never Tobacco Cessation:Counseling Given: Not Answered Alcohol Use Standard Drinks/Week Comments No 0 (1 standard drink = 0.6 oz pur e alcohol) Comments No Sex and Gender Information Value Date Recorded Sex Assigned at Not on file Legal Sex Female 3:46 AM LINUX UNIX ENGINEER Gender Identity Not on file Sexual Orientation Not on file Occupation Industry Job Start Date Job End Date Disabled Not on file Not on file Not on file Obstetrics History Para Term AB IAB SAB Ectopic Multiple Livin g Live Births 2 2 2 2 2 Date Outcome GA Total Labor Labor/2nd/3rd Weight Sex Type Anes PTL Michaela A1 A5 Name Clin Term Vag-Spo nt Term Vag-Spo nt Last Filed Vital Signs Vital Sign Reading Time Taken Comments Blood Pressure 146/81 01/16/2025 9:15 AM CDT Pulse 69 01/16/2025 9:15 AM CDT Temperature 36.3 C (97.3 F) 12/10/2019 8:21 AM LINUX UNIX ENGINEER Respiratory Rate 18 12/12/2023 8:51 AM LINUX UNIX ENGINEER Oxygen Saturation 95% 01/16/2025 9:15 AM CDT Inhaled Oxygen Concentration - - Weight 109.8 kg (242 lb) 01/16/2025 9:15 AM CDT Height 162.6 cm (5' 4.02) 01/16/2025 9:15 AM CD T Body Mass Index 41.52 01/16/2025 9:15 AM CDT Plan of Treatment Health Maintenance Due Date Last Done Comments Albumin Creatinine Ratio, Urine 1949 Colon Cancer Screening-Colonoscopy 1949 Depression Screening 1949 Fall Risk Assessment 1950 Hepatitis C Screening 1950 Osteoporosis Screening-Bone Density Scan 1949 Dilated Eye Exam 1949 Foot Exam 1949 DTaP/Tdap/Td Vaccine (1 - Tdap) 1960 Hepatitis B Screening 1967 Well Visit 65+ 2014 eGFR 06/14/2018 06/14/2017 Hemoglobin A1C 05/20/2020 11/20/2019, 11/17/2017 Lipid Panel 12/06/2020 12/06/2019 Covid-19 Vaccine (2023-2 5 season) 2024 03/30/2022, 10/03/2021, 09/02/2021, Additional history exists Influenza Vaccine (#1) 2025 Pneumococcal vaccine 65+ Completed 019, 12/08/2017, 02/01/2016, Additional history exists Breast Cancer Screening-Mammogram Discontinued 07/05/2023, 06/02/2022, 03/27/2021, Additional history exists Zoster Vaccine Completed 09/08/2023, 11/2022, 02/01/2016 Medical Devices Implanted Type Area Assembler [employer] Device Identifier Shelf Expiration Date Model / Serial / Lot [employer] [id number] [employer] 10x7cm Reinforcement Tissue Mesh Surgical Synthetic - [id number] - [id number] Implanted:Qty: 1 on 12/05/2019 by Gaby Orozco MD at [facility] Advanced Medicine Mesh N/A: Esophagus Wl [employer] [id number] 06/10/2022 [id number] / [id number] / Procedures Procedure Name Priority Date/Time Associated Diagnosis Comments LIPID PANEL STAT 12/06/2019 6:53 AM LINUX UNIX ENGINEER POCT HEMOGLOBIN A1C Routine 11/20/2019 8 :55 AM LINUX UNIX ENGINEER EGFR Routine 06/14/2017 3:14 PM CDT from Last 3 Months or Most Recently Relevant to Health Maintenance Results * Lipid panel (12/06/2019 6:53 AM LINUX UNIX ENGINEER) Cholesterol 187 30 - 199 mg/dL [facility] Comment: Interpretive Data Ages < or = 19 years Acceptable: <170 mg/dL Borderline high: 170-199 mg/dL High: >or= 200 mg/dL Ages > or = 20 years Desirable: <200 mg/dL Borderline high: 200-239 mg/dL High: >or= 240 mg/dL Literature References: 1. Expert Panel on Integrated Guidelines for Cardiovascular Health and Risk Reduction in Children and Adolescents. Pediatrics 2011;128:S213 2. NCEP Expert Panel. Circulation 2004;110:227 Current Interpretive Data was last revised on 2018. Triglycerides 114 <=149 mg/dL [facility] Comment: Interpretive Data Ages < or = 9 years Acceptable: <75 mg/dL Borderline high: 75-99 mg/dL High: >or= 100 mg/dL Ages 10 to 20 years Acceptable: <90 mg/dL Borderline high: 90-129 mg/dL High: >or= 130 mg/dL Ages > or = 20 years Desirable: <150 mg/dL Borderline high: 150-199 mg/dL High: 200-499 mg/dL Very high: >or= 499 mg/dL Literature References: 1. Expert Panel on Integrated Guidelines for Cardiovascular Health and Risk Reduction in Children and Adolescents. Pediatrics 2011;128:S213 2. NCEP Expert Panel. Circulation 2004;110:227 Current Interpretive Data was last revised on 2018. HDL 50 >=40 mg/dL [facility] Comment: Interpretive Data Ages < or = 19 years Acceptable: >45 mg/dL Borderline low: 40-45 mg/dL Low: <40 mg/dL Ages > or = 20 years Desirable: >or= 60 mg/dL Low: <40 mg/dL Literature References: 1. Expert Panel on Integrated Guidelines for Cardiovascular Health and Risk Reduction in Children and Adolescents. Pediatrics 2011;128:S213 2. NCEP Expert Panel. Circulation 2004;110:227 Current Interpretive Data was last revised on 2018. LDL, calculated 114 <=129 mg/dL [facility] Comment: Interpretive Data Ages < or = 19 years Acceptable: <110 mg/dL Borderline high: 110-129 mg/dL High: >or= 130 mg/dL Ages > or = 20 years Optimal: <100 mg/dL Near optimal: 100-129 mg/dL Borderline high: 130-159 mg/dL High: >160 mg/dL Literature References: 1. Expert Panel on Integrated Guidelines for Cardiovascular Health and Risk Reduction in Children and Adolescents. Pediatrics 2011;128:S213 2. NCEP Expert Panel. Circulation 2004;110:227 Current Interpretive Data was last revised on 2018. Non-HDL Cholesterol 137 mg/dL [facility] Comment: Interpretive Data Ages < or = 19 years Acceptable: <120 mg/dL Borderline high: 120-144 mg/dL High: >145 mg/dL Ages > or = 20 years When triglycerides are >200 mg/dL, Non-HDL cholesterol is a secondary target of therapy with treatment goals that are 30 mg/dL greater than the LDL cholesterol target. Literature References: 1. Expert Panel on Integrated Guidelines for Cardiovascular Health and Risk Reduction in Children and Adolescents. Pediatrics 2011;128:S213 2. NCEP Expert Panel. Circulation 2004;110:227 Current Interpretive Data was last revised on 2018. Chol/HDL ratio 4 [facility] Blood specimen (specimen) 12/06/2019 6:53 AM LINUX UNIX ENGINEER 12/06/2019 7:36 AM LINUX UNIX ENGINEER us L. Joe Orozco MD LAB BLOOD ORDERABLES Final R esult [facility] [address] [facility] Department [place] [address] * POCT hemoglobin A1c (11/20/2019 8:55 AM LINUX UNIX ENGINEER) Hgb A1C, POC 5.9 4.0 - 6.0 % [facility] Est Average Gluc POC 123 mg/dL [facility] Comment: The ADA recommends reporting an estimated Average Glucose (eAG) with all Hemoglobin A1c results using the equation derived from a study of 507 normal and diabetic adults. Minority populations were underrepresented and children were not included. (Diabetes Care 31:4229-1129, 2008). The eAG is not equivalent to a fasting glucose. Blood specimen (specimen) 11/20/2019 8:55 AM LINUX UNIX ENGINEER 11/20/2019 8:55 AM LINUX UNIX ENGINEER us Gaby Orozco MD POINT OF CARE TEST ORDERABLE S Final Result Performing Organization Address City/[facility] [[email or web address]] Co de Phone Number [facility] [address] [facility] [place] [address] * eGFR (06/14/2017 3:14 PM CDT) eGFR 59 mL/min/1.7 3 m2 [facility] Comment: Interpretive Data Reference Interval Normal >/= 90 mL/min/1.73m2 Mildly decreased* 60 - 89 mL/min/1.73m2 Mildly to moderately decreased 45 - 59 mL/min/1.73m2 Moderately to severely decreased 30 - 44 mL/min/1.73m2 Severely decreased 15 - 29 mL/min/1.73m2 Kidney Failure < 15 mL/min/1.73m2 *Relative to young adult level If -Bruneian multiply value by 1.16. Estimated glomerular filtration rate is determined by the CKD-EPI equation recommended by the National Kidney Foundation (KDIGO 2012 Clinical Practice Guideline for the Evaluation and Management of Chronic Kidney Disease. Kidney Intnl Suppl Nov 2012;3:1). The CKD-EPI equation should not be used for patients with unstable renal function and has not been validated in children and those over 70. Current interpretive data was last reviewed 2016. Blood specimen (specimen) 06/14/2017 3:14 PM CDT 06/14/2017 6:56 PM CDT us Joe Michelle MD LAB BLOOD ORDERABLES Fi nal Result [facility] [place] [address] [place] [place] [address] from Last 3 Months or Most Recently Relevant to Health Maintenance Insurance MEDICARE [employer] MEDICARE IDPA MEDICARE [facility] Advance Directives For more information, please contact: [phone] * Full Code (Latest Code Status on File) Date Activated Date Inactivated Comments 12/05/2019 5:44 PM 12/10/2019 5:15 PM Care Teams Tool Maintenance Worker Relationship Specialty [place] [address] [place] [id number] PCP - General Internal Medicine 06/08/17 VuyZofia malone MD [address] [address] Referring Physician Obstetrics and Gynecology 11/22/18 Romeo Ascencio MD [address] [address] Referring Physician Hematology 08/01/19
--- OUTSIDE RECORDS SUMMARY | 2025-05-29 06:52 | XMS_ITS | Encounter Summary ---
Author Organization [facility] Address [address] [place] [address] Care Team Providers Care Spa Supervisor Name Role Phone Unavailable Primary Care Provider Unavailabl e Encounter Details Date Type Department Care Team (Late st Contact Info) Description 10/12/2023 Lab Requisition [facility] - Pathology Lab [address] [place] [id number] Joe Villalobos MD [address] [address] [place] [id number] Illness, unspecified Social History Tobacco Use Types Packs/Day Years Used Date Smoking Tobacco: Never Assessed Comments Unknown Sex and Gender Information Value Date Recorded Sex Assigned at Not on file Legal Sex Female 9:36 AM CDT Gender Identity Not on file Sexual Orientation Not on file documented as of this encounter Plan of Treatment Not on file documented as of this encounter Procedures Procedure Name Priority Date/Time Associated Diagnosis Comments BONE MARROW BIOPSY (STL) Routine 10/11/2023 9:25 AM CARD TABLE ATTENDANT Illness, unspecified documented in this encounter Results * BONE MARROW BIOPSY (STL) (10/11/2023 9:25 AM CARD TABLE ATTENDANT) Case Report Bone Marrow Patholog y Report Case: [id number] Authorizing Provider: Mo Villalobos MD Collected: 10/11/2023 09:25 AM Ordering Location: [facility]ology Lab Received: 10/12/2023 01:42 PM Pathologist: Brigette Ring MD Specimens: A) - Bone Marrow Clot B) - Bone Marrow Core 10/17/2023 1:38 PM CARD TABLE ATTENDANT [facility] Final Diagnosis Bone marrow, core biopsy and aspirate: - 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 Please correlate with laboratory data and clinical information for distinction between smoldering myeloma and multiple myeloma. 10/17/2023 1:38 PM [facility] Peripheral Smear Description Not provided 10/17/2023 1:38 PM [facility] Bone Marrow Aspirate Differential count (200 cells): 0.5% blasts, 51.5% maturing myeloid precursors, 17.5% erythroid progenitors, 3.5% monocytes, 0.5% eosinophils, 23.5% lymphocytes, 3% plasma cells. Specimen quality: markedly suboptimal. Spicules: small. Trilineage Hematopoiesis: present. Myeloid:Erythroid ratio: normal. Myeloid Maturation: normal. Erythroid Maturation: normal. Megakaryocyte morphology: normal size. Storage iron (by special stain): absent; evaluation suboptimal due to lack of cellular spicules. Sideroblastic iron (by special stain): no ring sideroblasts. 10/17/2023 1:38 PM [facility] Bone Marrow Core Biopsy and Clot Section Description Specimen quality: adequate with 1.3 cm of evaluable marrow. Cellularity: 30-40 % Trilineage Hematopoiesis: present. Myeloid to Erythroid ratio: normal. Myeloid maturation and localization: normal. Erythroid maturation and localization: normal. Megakaryocyte number: normal. Megakaryocyte distribution: normal. Lymphoid aggregates: absent. Bone trabeculae: normal. Blood vessels: normal. There is no morphologic evidence of amyloid deposition. Plasma cells: increased, but normal morphology. Plasma cells are scattered throughout the interstitium and form small clusters. Large sheets of plasma cells are not identified. Clot section marrow particles: numerous. Clot section morphology: similar to core biopsy. 10/17/2023 1:38 PM [facility] Flow Cytometry Summary Flow identifies 5% clonal plasma cells with lambda light chain restriction which express CD138, CD56; a subset express CD38 and CD19. ([id number]). 10/17/2023 1:38 PM [facility] Clinical History Plasma cell disorder 10/17/2023 1:38 PM [facility] Materials Received Received are 20 slide(s) and 3 blocks labeled [id number] along with a copy of the outside pathology report. The [place] [address] . All original materials are returned to the referring institution, along with a copy of our final report. 10/17/2023 1:38 PM [facility] Microscopic Description Stains are performed on the core biopsy and clot section with appropriate controls and show the following: Core: CD138: 15-20% of cells are positive Reticulin: No significant increase in reticulin fibrosis. Iron: Adequate to mildly decreased iron stores Clot: CD138:15-20% of cels are positive Iron: Adequate 10/17/2023 1:38 PM [facility] Pathologist Location at [facility] 10/17/2023 1:38 PM [facility] Disclaimer The performance characteristics of all immunohistochemical and indirect immunofluorescence stains (if any) cited in this report were determined by the Histopathology Laboratory of [facility]. Some of these tests were developed by our own laboratory and have not been cleared or approved by the US Food and Drug Administration. The FDA does not require this test to go through premarket FDA review. These tests are used for clinical purposes. They should not be regarded as investigational or for research. This laboratory is certified under the Clinical Laboratory Improvement Amendments (CLIA) as qualified to perform high complexity clinical laboratory testing. This case has been personally reviewed and interpreted by the attending (teaching) pathologist. 10/17/2023 1:38 PM [facility] Addendum 1 In situ hybridizatio n for kappa and lambda mRNA performed on the clot section shows lambda light chain restriction. Furthermore, the Congo Red stain on the core biopsy is negative for amyloid deposition. Original diagnosis remains unchanged. 10/17/2023 1:38 PM [facility] Addendum electronically signed by Malika Fernandez MD on 10/17/2023 at 1338 CARD TABLE ATTENDANT Embedded Images 10/17/2023 1:38 PM [facility] Pathology/Cytology BONE MARROW SPECIMEN / Unknown 10/11/2023 9:25 AM CARD TABLE ATTENDANT 10/12/2023 1:42 PM CARD TABLE ATTENDANT Miscellaneous samples (specimen) BONE MARROW SPECIMEN / Unknown 10/11/2023 9:25 AM CARD TABLE ATTENDANT 10/12/2023 1:55 PM CARD TABLE ATTENDANT Joe Villalobos MD LAB - PATHO LOGY/CYTOLOGY ORDERABLES Edited Result - Final [facility] [address] [phone] documented in this encounter Visit Diagnoses Diagnosis Illness, unspecified documented in this encounter
--- OUTSIDE RECORDS SUMMARY | 2025-05-29 06:52 | XMS_ITS | Data Portability ---
Author Organization [facility] [employer], Main Office Address [address] [place] [address] Care Team Providers Care Rivet Passer Name Role Phone CARLITA PEPPER Primary Care Provider CARLITA PEPPER Referring Provider Assessment Encounter Date Assessment Date Assessment LastModified by Organization Details LastModified Time 03/24/2023 03/24/2023 This note is dictated and transcribed by [employer]. [employer] variances may occur. Despite proofreading, typographical errors may occur. [email or web address] Not available 03/24/2023 10:23:49 01/30/2024 01/30/2024 By history and exam the patient is noted to have impingement with possibly small rotator cuff tendon tear of the right shoulder x-rays show fairly impressive hypertrophic spur off the AC joint likely causing significant impingement. We talked about treatment options today in detail she wanted proceed with a cortisone oral prednisone and physical therapy. We will get her set up. Under sterile conditions I injected the patient's right shoulder subacromial space in the office with 4 cc 0.5% Marcaine and 20 mg of Kenalog. Patient tolerated the procedure well. I will see her back in 6 weeks she voiced understanding agrees above plan she will call for any further problems difficulties or questions. [email or web address] Not available 01/30/2024 10:00:41 06/13/2024 06/13/2024 73-year-old female presents for evaluation of her right shoulder. She was previously seeing Anjum PULIDO for a rotator cuff tear and AC joint hypertrophy. He previously gave her a cortisone injection back in January which did help. She also did physical therapy which was helping, but she finished that and is now doing home exercises. She was also on prednisone and taking Tylenol, Aleve, and ibuprofen. She currently rates her pain as 10/10, which started about 2 weeks ago. She has significant weakness with lifting as well. Review of systems per patient questionnaire Physical exam: She has tenderness over the AC joint and over the biceps. Range of motion to 90 actively, 150 passively, passive drop arm. He she has pain with resisted external rotation and resisted elevation, 4-/5 elevation strength. Positive Neer and Douglas, positive Letcher's X-rays were reviewed, demonstrating minimal glenohumeral degeneration, AC joint hypertrophy, acromial spur with sclerosis underside Given she has shoulder weakness and pain that has failed conservative measures including cortisone injection, we discussed next step would be to obtain an MRI. We will see her back after the scan. We will also prescribe her meloxicam to replace the Advil and ibuprofen she is currently taking. She is in agreement with the plan. [email or web address] Not available 06/13/2024 10:59:36 Plan of Treatment Reminders Order Date Submit Date Provider Last Modified By Organization Details Last Modified Time Details Appointments None recorded. Lab None recorded. Referral physical therapist referral - please contact patient to schedule 2023 024 [facility], [address] [place], [address], 4 09:49:50 Procedures injection/a spiration joint/bursa (PROC) 2023 024 [email or web address] In-Office Order, Internal Use Only DO Not Attach Compendium DO Not Attach Compendium, Do Not Delete/merge, [id number] 09:56:20 Surgeries None recorded. Imaging MRI, shoulder, w/o contrast - Please call patient to schedule [address] ([facility]), [address] [place], [address], 4 08:29:18 XR, shoulder 2023 024 [email or web address] [facility] [place], [address], [place], [address], 4 13:27:24 Medication Orders Mobic 15 mg tablet 2023 024 [email or web address] [id number], [address], [place], [id number], 4 16:47:48 Marcaine (PF) 0.5 % (5 mg/mL) injection solution 2023 024 [email or web address] [facility] #[id number], [address], [place], [id number], 4 13:27:24 Kenalog 10 mg/mL suspension for injection 2023 024 [email or web address] [facility] #00438, [address], [place], [id number], 4 13:27:24 prednisone 10 mg tablets in a dose pack 2023 024 [email or web address] [facility] #69110, [address], [place], [id number], 09:19:43 Patient TargetsNo targets recorded. Patient InstructionsNo instructions recorded. Reason for Referral Physical Therapist Referral for Pain of right shoulder joint please contact patient to schedule Referring Physician: Anjum Avendano, Orthopedic Surgery, Encounter Date: 01/30/2024 Results Created Date Observation Date Name Description Value Unit Range Abnormal Flag Note LastModifiedBy Organization Detail LastModifiedTime 05/24/20 23 05/24/2023 XR, ankle , 3 or more view [facility] [address] [place] [address] Patien t Name: MACEY CIFUENTES Access ion #: [id number] Sex: F : 1949 3 Dictat ed By: Paris rojo Attend ing Physic kenn: URIAHOscar GONZALEZ JONEL Orderi ng Physic kenn: JONEL URIAHOscar LISA Exam Date: 2022 09:59 AM Exam Name: XR ANKLE BILAT 3V Admitt ing Diagno sis(es ): CLINIC AL INFORM ATION: Bilate ral ankle pain. Feelin g of ankles giving out. TECHNI QUE: 3 views of the bilate ral ankles were obtain ed, includ ing AP, latera l, and obliqu e views. COMPAR TERI: No prior studie s. FINDIN GS: No acute fractu re or disloc ation. Pes planus deform ity of both feet. Modera te joint space narrow ing at the tibiot alar joints with associ ated subcho ndral sclero sis. Chroni c ossicl es adjace nt to the inferi or aspect of the right medial malleo cedric, likely sequel ae of prior trauma . Small planta r calcan eal spurs bilate rally. Modera te spurri ng at the right calcan eal tubero sity at the Achill es tendon insert ion. Stieda proces ses are seen bilate rally. Mild soft tissue swelli ng around both ankles . IMPRES TREMAINE: No acute bony abnorm ality. Arthri tic change s and chroni c findin gs as detail ed above. Electr onical ly Signed by: Paris rojo at 2022 10:56: 39 AM Page 1 [email or web address] [facility] [address] [place], [address], 05/24/2023 14:03:01 01/30/20 24 XR, shoul casey No observ ation record ed. [email or web address] [facility] [address], [place], [address], 01/30/2024 10:02:15 Result Notes Documentation Provider Name and Address Organization Details Recorded Time Xr, Ankle, 3 Or More View : [facility] [address] [place] [address] Patient Name: MACEY PRATT Sex: F : 1950 Dictated By: Joe Cartwright Attending Physician: JONEL GUTIERREZ Ordering Physician: MATT SLOAN Exam Date: 05/24/2023 09:59 AM Exam Name: XR ANKLE BILAT 3V Admitting Diagnosis(es): CLINICAL INFORMATION: Bilateral ankle pain. Feeling of ankles giving out. TECHNIQUE: 3 views of the bilateral ankles were obtained, including AP, lateral, and oblique views. COMPARISON: No prior studies. FINDINGS: No acute fracture or dislocation. Pes planus deformity of both feet. Moderate joint space narrowing at the tibiotalar joints with associated subchondral sclerosis. Chronic ossicles adjacent to the inferior aspect of the right medial malleolus, likely sequelae of prior trauma. Small plantar calcaneal spurs bilaterally. Moderate spurring at the right calcaneal tuberosity at the Achilles tendon insertion. Stieda processes are seen bilaterally. Mild soft tissue swelling around both ankles. IMPRESSION: No acute bony abnormality. Arthritic changes and chronic findings as detailed above. Page 1 Jonel Gutierrez DPM [address] [place] [address], [address], [facility] [employer] [facility] 05/24/2023 14:03:01 Problems Name Problem SNOMED Code Status Onset Date Resolution Date Notes Provider Name and Address Organization Details Recorded Time Hyperchole sterolemia 57310839 Active Not Available [facility] 3 06:44:47 Asthma 357559701 Active Not Available [facility] 3 06:44:47 Morbid obesity 453686097 Active Not Available [facility] 3 06:44:47 Osteoarthr itis of knee 060134555 Active Not Available [facility] 3 06:44:48 Hypertensi ve disorder 26297879 Active Not Available [facility] 3 06:44:48 Disorder of rotator cuff 928786087 Active Not Available [facility] 3 06:44:48 Dysuria 41375703 Active Not Available [facility] 3 06:44:48 Disorder of bursa of shoulder region 16846141 Active Not Available [facility] 3 06:44:48 Diabetes mellitus 47966562 Active Not Available [facility] 3 06:44:48 Pain in limb 76874842 Active Not Available [facility] 3 06:44:48 Bilateral ankle joint pain 7238760316785 9102 Active 2022 Jonel Gutierrez DPM [address], [address], [place], [address] , [employer] [facility] 3 10:23:51 Congenital pes planus 82246681 Active 2022 Jonel Gutierrez DPM [address], [address], [place], [address] , [employer] 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 [employer] [facility] 4 10:02:30 Tendinitis of right rotator cuff 1580451082148 9104 Active 2023 ASHOK Hagan [address], [address], [place], [address] , [employer] [facility] [employer] [facility] 4 10:02:41 Impingemen t syndrome of right shoulder region 0104834387117 02 Active 2023 ASHOK Hagan [address], [address], [place], [address] , [employer]FA [facility] [employer] [facility] 4 10:02:48 Problem Notes None recorded. Procedures Surgical History Date Name Laterality Status Provider Name and Address Organization Details Recorded Time Breast Surgery completed Hina Jalloh CNA [facility] 01/30/2024 09:40:10 Knee completed Hina Jalloh CNA [facility] 01/30/2024 09:40:20 Imaging Results None recorded. Procedure Notes None recorded. Medical Equipment None Reported. Allergies Allergen ID Allergen Name Allergen Category Reaction Reaction Severity Criticality Documentation Date Start Date Code Code System Note Provider Name and Address Organization Details Recorded Time 05650 latex environme nt,medica tion hives itching Not available Not available Not available 01/05/2023 99786 91 RxNorm Not Available [facility] 3 06:52:01 69976 egg extract food,medi cation hives itching Not available Not available Not available 01/30/2024 92465 15 RxNorm PAL Chavarria [facility] 09:29:20 Medications Name Sig Start Date Stop Date Status Note LastModified by Organization Details LastModified Time nystatin 100,000 unit/mL oral suspension SHAKE LIQUID AND TAKE 5 ML BY MOUTH FOUR TIMES DAILY FOR 7 DAYS DIRECTED FOR THRUSH active Not Available Not Available No t Available clonidine HCl 0.1 mg tablet 01/29 completed Not Available Not Available Not Available prednisone 10 mg tablet active Not Available Not Available Not Available albuterol sulfate 2.5 mg/3 mL (0.083 %) solution for nebulizatio n USE 1 VIAL VIA NEBULIZER THREE TIMES DAILY NEEDED 06/11 completed Not Available Not Available Not Available lisinopril 20 mg-hydrochl orothiazide 12.5 mg tablet 06/11 completed Not Available Not Available Not Available azithromyci n 250 mg tablet TAKE 2 TABLETS BY MOUTH ON DAY 1 THEN TAKE 1 TABLET BY MOUTH FOR DAYS 2-5 01/29 completed Not Available Not Available Not Available ofloxacin 0.3 % eye drops active Not Available Not Available Not Available meloxicam 15 mg tablet TAKE 1 TABLET BY MOUTH EVERY DAY active Not Available Not Available No t Available metoprolol succinate ER 200 mg tablet,exte nded release 24 hr 01/29 completed Not Available Not Available Not Available prednisone 20 mg tablet TAKE 2 TABLETS BY MOUTH EVERY DAY WITH MEALS FOR 5 DAYS 01/29 completed Not Available Not Available Not Available metoprolol succinate ER 100 mg tablet,exte nded release 24 hr TAKE 1 TABLET BY MOUTH DAILY active Not Available Not Available No t Available metformin 850 mg tablet TAKE 1 TABLET BY MOUTH TWICE DAILY WITH MEALS active Not Available Not Available No t Available Accu-Chek Softclix Lancets USE THREE DAYS A WEEK TO TEST 01/29 completed Not Available Not Available Not Available chlorthalid one 25 mg tablet TAKE 1 TABLET BY MOUTH EVERY DAY AROUND THE CLOCK active Not Available Not Available No t Available ciprofloxac in 250 mg tablet TK 1 T PO BID 01/29 completed Not Available Not Available Not Available ciprofloxac in 500 mg tablet 01/29 completed Not Available Not Available Not Available sulfamethox azole 800 mg-trimetho prim 160 mg tablet 01/29 completed Not Available Not Available Not Available peg-electro lyte solution 420 gram oral solution 01/29 completed Not Available Not Available Not Available aspirin 81 mg tablet,katrin yed release active Not Available Not Available Not Available ketorolac 0.5 % eye drops active Not Available Not Available Not Available prednisone 10 mg tablets in a dose pack Take 1 tab by mouth, 3 times a day for 3 daysTake 1 tab by mouth 2 times a day for 2 daysTake 1 tab by mouth once a day for 1 day 06/13 completed Not Available Not Available Not Available prednisolon e acetate 1 % eye drops,suspe nsion active Not Available Not Available Not Available Kenalog 10 mg/mL suspension for injection Take 20 mg by injection route. 2023 active [facility]: [phone] Not Available Not Available Not Available benzonatate 100 mg capsule TAKE 1 CAPSULE BY MOUTH THREE TIMES DAILY FOR 7 DAYS NEEDED 01/29 completed Not Available Not Available Not Available cyanocobala min (vit B-12) 1,000 mcg/mL injection solution Inject 1 mL every month by subcutane ous route. active Not Available Not Available No t Available neomycin-po lymyxin-dex ameth 3.5 mg/mL-10,00 0 unit/mL-0.1 % eye drops INSTILL 1 DROP INTO BOTH EYES FOUR TIMES DAILY X 1 WEEK AND THEN DECREASE TO TWICE DAILY UNTIL RETURN TO OFFICE. SHAKE WELL BEFORE USE 01/29 completed Not Available Not Available Not Available nitrofurant oin macrocrysta l 100 mg capsule 01/29 completed Not Available Not Available Not Available Qvar 40 mcg/actuati on Metered Aerosol oral inhaler 01/29 completed Not Available Not Available Not Available Advair Diskus 250 mcg-50 mcg/dose powder for inhalation 01/29 completed Not Available Not Available Not Available omeprazole 20 mg capsule,del ayed release 06/11 completed Not Available Not Available Not Available diclofenac sodium 75 mg tablet,katrin yed release 01/29 completed Not Available Not Available Not Available montelukast 10 mg tablet TAKE 1 TABLET BY MOUTH EVERY DAY active Not Available Not Available No t Available hydrocodone 5 mg-acetamin ophen 500 mg tablet 06/13 completed Not Available Not Available Not Available hydrochloro thiazide 25 mg tablet TAKE 1 TABLET BY MOUTH DAILY active Not Available Not Available No t Available furosemide 20 mg tablet 01/29 completed Not Available Not Available Not Available methylpredn isolone 4 mg tablets in a dose pack 01/29 completed Not Available Not Available Not Available Vitamin D2 1,250 mcg (50,000 unit) capsule 01/29 completed Not Available Not Available Not Available ondansetron 4 mg disintegrat ing tablet Place 1 tablet every day by transling ual route. active Not Available Not Available No t Available fluticasone propionate 50 mcg/actuati on nasal spray,suspe nsion SHAKE LIQUID AND USE 2 SPRAYS IN EACH NOSTRIL EVERY DAY DIRECTED active Not Available Not Available No t Available Ventolin HFA 90 mcg/actuati on aerosol inhaler INHALE 2 PUFFS BY MOUTH EVERY 4 TO 6 HOURS 01/29 completed Not Available Not Available Not Available ezetimibe 10 mg tablet TAKE 1 TABLET BY MOUTH EVERY DAY active Not Available Not Available No t Available Laxative (bisacodyl) 5 mg tablet TAKE 6 TABLETS BY MOUTH AT 8AM ON 02/22 completed Not Available Not Available Not Available Marcaine (PF) 0.5 % (5 mg/mL) injection solution Take 20 mg by injection route. 2023 active Not Available Not Available Not Avai lable memantine 10 mg tablet TAKE 1 TABLET BY MOUTH TWICE DAILY active Not Available Not Available No t Available Atrovent HFA 17 mcg/actuati on aerosol inhaler 01/29 completed Not Available Not Available Not Available fenofibrate 160 mg tablet 01/29 completed Not Available Not Available Not Available cod liver oil 01/29 completed Not Available Not Available Not Available elderberry fruit 01/29 completed Not Available Not Available Not Available cholecalcif peña (vitamin D3) 50 mcg (2,000 unit) capsule TAKE 1 CAPSULE BY MOUTH ONCE DAILY 06/13 completed Not Available Not Available Not Available B12 active Not Available Not Availa ble Not Available Probiotic 01/29 completed Not Available Not Available Not Available acetaminoph en 325 mg capsule Take 2 capsules every 4-6 hours by oral route as needed. active Not Available Not Available No t Available albuterol sulfate 90 mcg/actuati on breath activated powder inhaler Inhale 2 puffs every 4 hours by inhalatio n route. active Not Available Not Available No t Available Breo Ellipta 200 mcg-25 mcg/dose powder for inhalation INHALE 1 PUFF BY MOUTH EVERY DAY active Not Available Not Available No t Available Accu-Chek Guide test strips USE TO TEST THREE DAYS A WEEK 01/29 completed Not Available Not Available Not Available Accu-Chek Guide Glucose Meter USE DIRECTED TO TEST THREE DAYS A WEEK 01/29 completed Not Available Not Available Not Available Nexletol 180 mg tablet Take 1 tablet every day by oral route. active Not Available Not Available No t Available Trelegy Ellipta 200 mcg-62.5 mcg-25 mcg powder for inhalation INHALE 1 PUFF BY MOUTH EVERY 24 HOURS 01/29 completed Not Available Not Available Not Available Ozempic 0.25 mg or 0.5 mg (2 mg/3 mL) subcutaneou s pen injector INJECT 0.25 MG UNDER THE SKIN ONCE A WEEK active Not Available Not Available No t Available Vitals Date Recorded Body height Body mass index (BMI) Body weight Provider Name and Address Organization Details Last Updated DateTime 01/30/2024 162.56 cm 39.3 kg/m2 599795.65 g PAL Chavarria [employer] [employer] 01/30/2024 09:28:30 Date Recorded Body height Body mass index (BMI) Body weight Heart rate Respiratory rate Oxygen saturation Oxygen saturation in Arterial blood by Pulse oximetry Systolic And Diastolic Provider Name and Address Organization Details Last Updated DateTime 162.56 cm 42.6 kg/m2 932468. 91 g 99 /min 14 /min 98 % 98 % 117/82 mm[Hg] Batsheva Dominguez [facility] 09:39:27 Date Recorded Body height Body mass index (BMI) Body weight Pain severity - 0-10 verbal numeric rating [Score] - Reported Provider Name and Address Organization Details Last Updated DateTime 06/13/2024 162.56 cm 41.2 kg/m2 908170.17 g 10 Lori Harp [facility] 06/13/2024 09:18:30 Social History Question Answer Notes LastModified by [employer] Details LastModified Time Tobacco Smoking Status Never Smoker Batsheva marie [facility] 03/24/2023 09:42:45 What Is Your Level Of Caffeine Consumption? Moderate Information not available 03/24/2023 What Was The Date Of Your Most Recent Tobacco Screening? 03/24/2023 Information not available 03/24/2023 Has Tobacco Cessation Counseling Been Provided? No Information not available 03/24/2023 Sex: Unknown Functional Status Question Answer Note LastModified by [employer] Details LastModified Time Do you use any illicit or recreational drugs? No Information not available 03/24/2023 Do you or have you ever used any other forms of tobacco or nicotine? No Information not available 03/24/2023 What is your level of alcohol consumption? None Information not available 03/24/2023 Mental Status None recorded. Family History Relationship Description Onset Age of this Age Resolved Age Notes LastModified by Organization Details LastModified Time Unspecified Relation Hypertensive disorder CHILDR EN [email or web address] Not available 01/30/2024 09:39:31 Son Diabetes mellitus [email or web address] Not available 2023 09:39:41 Medical History Condition Response ARTHRITIS Y CANCER: SPECIFY Y OBESITY Y ANEMIA/BLOOD DISORDER Y DIABETES, TYPE Y ALLERGIES/HAYFEVER Y OSTEOPOROSIS Y URINARY/BLADDER/KIDNEY PROBLEMS Y HEART ARRHYTHMIA Y HEARTBURN / REFLUX Y HIGH CHOLESTEROL / HYPERLIPIDEMIA Y Gynecological HistoryNo gynecological history recorded. Obstetrics History GPAL:G 0 P 0 0 0 0 Past Encounters Encounter ID Performer Location Encounter Start Date Encounter Closed Date Diagnosis/Indication Diagnosis SNOMED-CT Code Diagnosis ICD10 Code Diagnosis Note [id number] Jonel Gutierrez DPM [facility] [place] [address] [facility] [address] [place] [address] 03/24/2023 09:29:24 03/24/2023 10:49:58 Bilateral ankle joint pain 2848393549 3072623 M25.571 M25.572 X-rays ordered bilateral ankleconti nue supportive shoe gearrecomm end over-the-c ounter [facility] testing to review x-rays, possible joint injection next visit if continued joint pain Congenital pes planus 23 285262 Q66.51 Q66.52 recommend supportive shoe gearRecomm end over-the-c ounter [facility] [id number] Rey Parsons MD [facility] [place] [address] [place] [address] 01/30/2024 09:05:28 01/30/2024 10:22:52 Pain of right shoulder joint 3614159252 1778644 M25.511 Osteoarthr itis of right acromioclavicular joint 4574613503 003274 M19.011 Tendinitis of right rotator cuff 5087921943 4391884 M67.813 Impingemen t syndrome of right shoulder region 3631187317 37392 M75.41 [id number] Rey Pars[address] MD [facility] [place] [address] [place] [address] 06/13/2024 09:16:13 06/13/2024 09:35:01 Osteoarthritis of right acromioclavicular joint 8272319535 279682 M19.011 Pain of ri ght shoulder joint 2346348950 2139010 M25.511 Health Concerns Section Related Observation LastModified by Organization Detai ls LastModified Time None Recorded Concern Status LastModified by Organization Details LastModified Time None Recorded Advance Directives Directive None Recorded Payers Insurance Date Sequence Insurance Name Policy Number Policy Fiore Covered Member ID Fiore Member ID Guarantor Name 06/13/2024 1 [place] Macey Pratt [id number] Macey Pratt 06/13/2024 2 [place] [facility] OF PUBLIC AID Macey Pratt [id number] Macey Pratt Notes Date Note Type Note Provider Name and Address Organization Details Recorded Time 03/24/2023 text/html . Patient is 72-year-old female who presents to the office with complaints of bilateral ankle pain. Patient states that when she is walking she sometimes feels like her ankles give out. Patient states that she has not been having any pain over the last 2 weeks. Patient states that she has had no significant trauma to the ankles. Patient denies any other pedal complaints. Patient denies any history of x-rays. Jonel Gutierrez DPM [address], [place], [address], [facility] [employer] 03/24/2023 10:25:28 01/30/2024 text/html The patient is a 73-year-old female who comes in today complaining of a several month history of right shoulder pain. She has had some problems on and off over the years but this has been very persistent. She does take Tylenol for it but states at times her pain is about a 10 on a scale of 1-10. She states aching pain radiates into the upper arm she has a hard time lifting her arm up overhead she can not do anything heavy or repetitive. Denies any specific trauma or injury to the shoulder no effusion or swelling states the shoulder feels a little weak at times to but she has a lot of pain when she tries to do anything with it. Occasionally it does keep her awake at night she states she can not reach up to do her hair or lift anything into a cabinet. She has to use the other arm to help get the arm up there but can hold it up when she does get there. The patient comes in today for initial evaluation treatment of right shoulder pain as described. Past medical history sheet was reviewed and signed noted on the intake sheet of today's date drug allergies current medications family social history previous surgical history 10 point review of systems was reviewed discussed in detail today with the patient. ASHOK Hagan [address], [place], [address], [place] - [facility] 01/30/2024 10:03:18 OBGyn Episode No OBEpisode recorded.
--- OUTSIDE RECORDS SUMMARY | 2025-05-29 06:52 | XMS_ITS | Clinical Summary ---
Author Organization [facility] Address [address] [place] [address] Care Team Providers Care Hyperbaric Tech Name Role Phone Daly Servin MD Primary Care Provider [phone] Allergies Active Allergy Reactions Criticality Noted Date Comments Adhesive Hives,Rash High 11/20/2019 Atorvastatin Unknown 11/02/2012 Chicken Derived Hives High 04/20/2019 Egg Hives,Shortness of Breath/Wheezing High Latex Hives,Rash High 06/14/2017 Rosuvastatin Calcium Unknown 08/31/2012 Medications metFORMIN (GLUCOPHAGE) 850 mg tablet Take 850 mg by mouth daily with breakfast . Active ezetimibe (ZETIA) 10 mg tablet Take 10 mg by mouth daily. Active metoprolol succinate (TOPROL XL) 100 mg Extended Release 24 hour tablet Take 100 mg by mouth daily. Active hydroCHLOROthiaz kristie 25 mg tablet Take 25 mg by mouth daily. Active omeprazole (PriLOSEC) 20 mg Capsule, Delayed Release(E.C.) Take 20 mg by mouth daily. Active cholecalciferol 50,000 unit Capsule Take 50,000 Units by mouth every 7 days. Active montelukast (SINGULAIR) 10 mg tablet Take 10 mg by mouth daily at bedtime. Active BREO ELLIPTA 200-25 mcg/dose Disk with Device INL 1 PUFF PO AT THE SAME TIME Q DAY. RM AFTER U 11 08/21/20 18 Active albuterol HFA 90 mcg inhaler Ventolin HFA 90 mcg/actuation aerosol inhaler Active memantine (NAMENDA) 10 mg Tablet Take half tablet po bid for one week, then one tablet po bid 11/14/19 19 Active Cyanocobalamin-C obamamide (B12) 5,000-100 mcg Lozenge B12 Active acetaminophen (TYLENOL) 325 mg tablet Take 650 mg by mouth. 12/10/19 Active MAPAP 325 mg tablet 12/10/19 Active aspirin (ECOTRIN EC) 81 mg Tablet, Delayed Release (E.C.) Take 81 mg by mouth daily at bedtime. Active cyanocobalamin (VITAMIN B-12) 1,000 mcg/mL Solution Inject 1,000 mcg by intramuscular injection. Active lisinopriL (PRINIVIL) 20 mg tablet Take 20 mg by mouth. Active ondansetron (ZOFRAN) 4 mg Tablet Take 4 mg by mouth. 12/10/19 Active chlorthalidone (HYGROTON) 25 mg tablet Take 25 mg by mouth daily. Fo 90 days Active fluticasone propionate (FLONASE) 50 mcg/spray Maria Stein, Suspension nasal inhaler Administer 2 Sprays in each nostril daily. Active bempedoic acid (Nexletol) 180 mg Tablet Take 1 Tablet by mouth. Active semaglutide (Ozempic) 0.25 mg or 0.5 mg (2 mg/3 mL) Pen Injector Inject 1 Syringe by subcutaneous injection. Active albuterol (PROVENTIL,CHECO JOSÉ MANUEL) 2.5 mg/0.5 mL Solution for Nebulization Take 2.5 mg by inhalation 3 times daily as needed for Shortness of Breath. 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 Encounters Date Type Department Care Team Description 05/22/2025 External Device Data STL ABSTRACTION Provider, Abstract 05/21/2025 External Device Data STL ABSTRACTION Provider, Abstract 04/30/2025 External Device Data STL ABSTRACTION Provider, Abstract 04/23/2025 External Device Data STL ABSTRACTION Provider, Abstract 04/02/2025 External Device Data STL ABSTRACTION Provider, Abstract 03/28/2025 External Device Data STL ABSTRACTION Provider, Abstract 03/27/2025 External Device Data STL ABSTRACTION Provider, Abstract 03/26/2025 External Device Data STL ABSTRACTION Provider, Abstract from Last 3 Months Family History Medical History Relation Name Comments Healthy Brother No Known Problems Father Hypertension Mother Stroke Mother Atrial fibrillation Son Diabetes Son Relation Name Status Comments Brother Alive Daughter Alive Father Alive Mother Sister Alive Son Alive Social History Tobacco Use Types Packs/Day Years Used Date Smoking Tobacco: Never Tobacco Cessation:Counseling Given: Not Answered Alcohol Use Standard Drinks/Week Comments No 0 (1 standard drink = 0.6 oz pur e alcohol) Comments No Sex and Gender Information Value Date Recorded Sex Assigned at Not on file Legal Sex Female 9:04 AM CDT Gender Identity Not on file Sexual Orientation Not on file Last Filed Vital Signs Vital Sign Reading Time Taken Comments Blood Pressure 150/81 10/12/2024 8:50 AM WORKFORCE INVESTMENT ACT CAREER MANAGER Pulse 90 10/12/2024 8:50 AM WORKFORCE INVESTMENT ACT CAREER MANAGER Temperature 36.5 C (97.7 F) 10/12/2024 8:50 AM WORKFORCE INVESTMENT ACT CAREER MANAGER Respiratory Rate 18 10/12/2024 8:50 AM WORKFORCE INVESTMENT ACT CAREER MANAGER Oxygen Saturation 96% 10/12/2024 8:50 AM WORKFORCE INVESTMENT ACT CAREER MANAGER Inhaled Oxygen Concentration - - Weight 107 kg (236 lb) 10/12/2024 8:50 AM WORKFORCE INVESTMENT ACT CAREER MANAGER Height 162.6 cm (5' 4) 09/14/2023 9:50 AM WORKFORCE INVESTMENT ACT CAREER MANAGER Body Mass Index 40.51 09/14/2023 9:50 AM WORKFORCE INVESTMENT ACT CAREER MANAGER Plan of Treatment Upcoming Encounters Date Type Department Care Team (Late st Contact Info) Description 06/19/2025 11:00 AM CDT Office Visit [facility] - [place] [address] [facility] [address] [place] [address] Romeo Ascencio MD [address] [facility] [address] [place] [address] Health Maintenance Due Date Last Done Comments DIABETES ANNUAL FOOT EXAM 1967 DIABETES MICROALBUMIN ANNUAL SCREEN 1967 LDL CHOLESTEROL ANNUAL 1967 DTAP/TDAP/TD VACCINES (1 - Tdap) 1968 FIT-DNA Q 3 years 1994 Flex Sig/CT Colonography Q 5 years 1994 FIT/FOBT Q 1 year 06/21/2019 06/21/2018 OSTEOPOROSIS SCREENING 11/04/2020 11/04/2015 RSV VACCINE (60+ or ) (1 - 1-dose 75+ series) 2024 COVID-19 Vaccine (2023-2 5 season) 2024 08/23/2023, 09/07/2022, 03/30/2022, Additional history exists DIABETES HBA1C Q 6 MONTHS 01/21/20252023, 06/13/2023, 11/17/2022, Additional history exists INFLUENZA VACCINE (#1) 2025 DIABETES ANNUAL RETINAL EXAM 07/25/2025, 06/22/2022, 06/22/2022, Additional history exists COLORECTAL SCREENING 02/23/2033 02/23/2023, 02/23/2023, 06/07/2019, Additional history exists Colorectal Cancer Screening 02/23/2033 PNEUMOCOCCAL VACCINE 50+ YEARS Completed 1 12/11/2018, 12/08/2017, 02/01/2016, Additional history exists ZOSTER VACCINE Completed 09/08/2023, 0911/2022, 02/01/2016 Procedures Procedure Name Priority Date/Time Associated Diagnosis Comments OCCULT BLOOD IMMUNOASSAY, COLORECTAL SCREEN Routine 06/21/2018 Iron deficiency anemia, unspecified iron deficiency anemia type COLONOSCOPY REPORT Routine 07/06/2017 from Last 3 Months or Most Recently Relevant to Health Maintenance Results * OCCULT BLOOD IMMUNOASSAY, COLORECTAL SCREEN (06/21/2018) Stool STOOL SPECIMEN / Unknown Romeo Ascencio MD BODY FLUIDS AND STOOLS Final Re sult EXTERNAL LAB * COLONOSCOPY REPORT (07/06/2017) us Abstract Provider GI PROCEDURE ORDERABLES Final Result [facility] from Last 3 Months or Most Recently Relevant to Health Maintenance Insurance MEDICARE PART B MEDICARE PART B MEDICAID [place] Care Teams Hyperbaric Tech Relationship Specialty Start Date End Date Daly Servin MD [address] [place] [address] PCP - General Internal Medicine 07/31/18
--- OUTSIDE RECORDS SUMMARY | 2025-05-29 06:52 | XMS_ITS | Referral Summary ---
Author Organization [facility] Address [address] [place] [address] Care Team Providers Care Switchboard Wire Worker Helper Name Role Phone Daly Servin MD Primary Care Provider Zofia Ordaz MD Unavailable Romeo Ascencio MD Unavailable [phone] Allergies Active Allergy Reactions Criticality Noted Date [...] (09/11/2019): Added automatically from request for surgery [id number] Calculus of gallbladder with out cholecystitis without obstruction 09/11/2019 Overview (09/11/2019): Added automatically from request for surgery [id number] Morbid obesity with BMI of 40.0-44.9, adult 06/2019 Endometrial cancer 01/09/2018 Type 2 diabetes mellitus 11/21/2017 Osteoporosis 11/21/2017 Gastroesophageal reflux disease 11/21/2017 Hypertension 11/03/2017 Hyperlipidemia 11/03/2017 Asthma 11/03/2017 Arthritis 11/03/2017 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 Paraproteinemia 06/30/2017 Mild late onset Alzheimer dementia 06/14/2017 Social History Tobacco Use Types Packs/Day Years Used Date Smoking Tobacco: Never Smokeless Tobacco: Never Tobacco Cessation:Counseling Given: Not Answered Alcohol Use Standard Drinks/Week Comments No 0 (1 standard drink = 0.6 oz pur e alcohol) Comments No Sex and Gender Information Value Date Recorded Sex Assigned at Not on file Legal Sex Female 3:46 AM HAIR BLENDER Gender Identity Not on file Sexual Orientation Not on file Occupation Industry Job Start Date Job End Date Disabled Not on file Not on file Not on file Last Filed Vital Signs Vital Sign Reading Time Taken Comments Blood Pressure 146/81 01/16/2025 9:15 AM CDT Pulse 69 01/16/2025 9:15 AM CDT Temperature 36.3 C (97.3 F) 12/10/2019 8:21 AM HAIR BLENDER Respiratory Rate 18 12/12/2023 8:51 AM HAIR BLENDER Oxygen Saturation 95% 01/16/2025 9:15 AM CDT Inhaled Oxygen Concentration - - Weight 109.8 kg (242 lb) 01/16/2025 9:15 AM CDT Height 162.6 cm (5' 4.02) 01/16/2025 9:15 AM CD T Body Mass Index 41.52 01/16/2025 9:15 AM CDT Plan of Treatment Not on file Medical Devices Implanted Type Area Bailing Machine Operator Device Identifier Shelf Expiration Date Model / Serial / Lot [employer] [id number] [employer]A 10x7cm Reinforcement Tissue Mesh Surgical Synthetic - [id number] - [id number] Implanted:Qty: 1 on 12/05/2019 by Gaby Orozco MD at [facility] Mesh N/A: Esophagus Wl [employer] [id number] 06/10/2022 [id number] / [id number] / Procedures Procedure Name Priority Date/Time Associated Diagnosis Comments LIPID PANEL STAT 12/06/2019 6:53 AM HAIR BLENDER POCT HEMOGLOBIN A1C Routine 11/20/2019 8 :55 AM HAIR BLENDER EGFR Routine 06/14/2017 3:14 PM CDT from Last 3 Months or Most Recently Relevant to Health Maintenance Results * Lipid panel (12/06/2019 6:53 AM HAIR BLENDER) Cholesterol 187 30 - 199 mg/dL [facility] Comment: Interpretive Data Ages < or [...] on 2018. Triglycerides 114 <=149 mg/dL [facility] Comment: Interpretive Data Ages < or [...] on 2018. HDL 50 >=40 mg/dL [facility] Comment: Interpretive Data Ages < or [...] on 2018. LDL, calculated 114 <=129 mg/dL [facility] Comment: Interpretive Data Ages < or [...] revised on 2018. Non-HDL Cholesterol 137 mg/dL [facility] Comment: Interpretive Data Ages < or [...] last revised on 2018. Chol/HDL ratio 4 [facility] Blood specimen (specimen) 12/06/2019 6:53 AM HAIR BLENDER 12/06/2019 7:36 AM HAIR BLENDER [facility]. Joe Orozco MD LAB BLOOD ORDERABLES Final R esult [facility] Department [place] [address] * POCT hemoglobin A1c (11/20/2019 8:55 AM HAIR BLENDER) Hgb A1C, POC 5.9 4.0 - 6.0 % [facility] Est Average Gluc POC 123 mg/dL [facility] Comment: The ADA recommends reporting an estimated Average Glucose (eAG) with all Hemoglobin A1c results using the equation derived from a study of 507 normal and diabetic adults. Minority populations were underrepresented and children were not included. (Diabetes Care 31:2232-0133, 2008). The eAG is not equivalent to a fasting glucose. Blood specimen (specimen) 11/20/2019 8:55 AM HAIR BLENDER 11/20/2019 8:55 AM HAIR BLENDER Gaby Orozco MD POINT OF CARE TEST ORDERABLE S Final Result Performing Organization Address City/[facility]/ZIP Co de Phone Number JORGITOELÍAS [facility] Department [place] [address] * eGFR (06/14/2017 3:14 PM CDT) eGFR 59 mL/min/1.7 3 m2 [facility] Comment: Interpretive Data Reference Interval Normal >/= 90 mL/min/1.73m2 Mildly decreased* 60 - 89 mL/min/1.73m2 Mildly to moderately decreased 45 - 59 mL/min/1.73m2 Moderately to severely decreased 30 - 44 mL/min/1.73m2 Severely decreased 15 - 29 mL/min/1.73m2 Kidney Failure < 15 mL/min/1.73m2 *Relative to young adult level If -Luxembourger multiply value by 1.16. Estimated glomerular filtration [...] 3:14 PM CDT 06/14/2017 6:56 PM CDT Joe Michelle MD LAB BLOOD ORDERABLES Fi nal Result [facility] [address] Department [place] [address] from Last 3 Months or Most Recently Relevant to Health Maintenance Insurance MEDICARE IDPA MEDICARE [facility] Address: [id number] [place] [phone] IDPA MEDICARE [facility] Address: [address] [address] [place] [address] IDPA Advance Directives For more information, please contact: [phone] * Full Code (Latest Code Status on File) Date Activated Date Inactivated Comments 12/05/2019 5:44 PM 12/10/2019 5:15 PM Care Teams Switchboard Wire Worker Helper Relationship Specialty Start Date End Date Daly Servin MD [address] [address] PCP - General Internal Medicine 06/08/17 Zofia Ordaz MD [address] [address] Referring Physician Obstetrics and Gynecology 11/22/18 Romeo Ascencio MD [address] [address] Referring Physician Hematology 08/01/19
--- OUTSIDE RECORDS SUMMARY | 2025-05-29 06:52 | XMS_ITS | Encounter Summary ---
Author Organization [facility] Address [address] [place] [address] Care Team Providers Care Casting Room Operator Name Role Phone Unavailable Primary Care Provider Unavailabl e Encounter Details Date Type Department Care Team (Late st Contact Info) Description 10/11/[address] [facility] - Pathology Lab [address] [place] [id number] Joe Villalobos MD [address] [facility] [address] [place] [id number] Disorder of white blood cells, unspecified Social History Tobacco Use Types Packs/Day [...] Procedure Name Priority Date/Time Associated Diagnosis Comments FLOW CYTOMETRY BONE MARROW Routine 10/11/2023 9:25 AM MAINTENANCE INSPECTOR Disorder of white blood cells, unspecified documented in this encounter Results * FLOW CYTOMETRY BONE MARROW (10/11/2023 9:25 AM MAINTENANCE INSPECTOR) Case Report Flow Cytometry Case: [id number] Authorizing Provider: Mo Villalobos MD Collected: 10/11/2023 09:25 AM Ordering Location: [facility] Pathology Lab Received: 10/11/2023 12:28 PM Pathologist: Brigette Ring MD Specimen: Bone Marrow 10/14/2023 4:30 PM MAINTENANCE INSPECTOR [facility] PATH[facility]Y [facility] Final Diagnosis Bone marrow, flow cytometric immunophenotyping : - 5% clonal plasma cells identified with lambda light chain restriction, see comment - No evidence of a B-cell neoplasm or increased blasts 10/14/2023 4:30 PM [facility] PATH[facility] at [address] MAINTENANCE INSPECTOR Flow Cytometry Interpretation Viability: 97% B-cells: polytypic, kappa:lambda ratio 1.6:1 Blasts: detected, 0.63% by CD34 expression Plasma cells: monoclonal, lambda-restricted , express CD138, CD56 with a subset expressing CD38 and CD19 MRD sent: No A bone marrow aspirate smear prepared from the flow cytometry specimen has been reviewed for quality control lab tech purposes. Please refer to histologic sections of the bone marrow ([id number]). 10/14/2023 4:30 PM [facility] Flow Cytometry Results Differential Result Comment Flow Cell Count /uL 36,900 Total Viability % 97.0 Lymphocytes % 20 Dim CD45 Region % 7 0.63% blasts by CD34 expression Monocytes % 7 Granulocytes % 66 10/14/2023 4:30 PM [facility] Reason for test Disorder of white blood cells, unspecified 10/14/2023 4:30 PM [facility] Client Specimen ID # [id number] 10/14/2023 4:30 PM [facility] Number of markers 14 were performed. A-2 Flow CD10 A-3 Flow CD13 A-5 Flow CD20 A-13 Flow CD117 A-14 FLOW CD138 A-1 Flow CD5 A-4 Flow CD19 A-6 Flow CD33 A-7 Flow CD34 A-8 Flow CD45 A-11 Flow CD38 A-12 Flow CD56 A-9 [place]+CD19+ A-10 Lambda+CD19+ 10/14/2023 4:30 PM [facility] Pathologist Location at [facility] 10/14/2023 4:30 PM [facility] Disclaimer Test performed at [facility], [address] [place] [address], [id number]. *The established laboratory minimum viability is 70%. Values below the minimum may result in the failure to find an abnormal population of cells. This test was developed and its performance characteristics determined by the Flow Cytometry Laboratory. It has not been cleared by the [place] Food and Drug Administration (FDA). The FDA has determined that such clearance or approval is not necessary. This test is used for clinical purposes. It should not be regarded as investigational or for research. This laboratory is regulated under the Clinical Laboratory Improvement Amendments of 1998 (CLIA) as a qualified to perform high complexity clinical testing. 10/14/2023 4:30 PM MAINTENANCE INSPECTOR [facility] PATH[facility] Embedded Images 4:30 PM MAINTENANCE INSPECTOR [facility] Pathology/Cytolo gy BONE MARROW SPECIMEN / Unknown 10/11/2023 9:25 AM MAINTENANCE INSPECTOR 10/11/2023 12:28 PM MAINTENANCE INSPECTOR Joe Villalobos MD LAB - PATHOLOGY/CYT OLOGY ORDERABLES Final Result [facility] [address] [place] [address], [facility] [phone] documented in this encounter Visit Diagnoses Diagnosis Disorder of white blood cells, unspecified documented in this encounter
--- OUTSIDE RECORDS SUMMARY | 2025-05-29 06:52 | XMS_ITS | Data Portability ---
Author Organization [facility] [place] [facility] Address [address] [place] [address] Care Team Providers Care Compliance Counsel Name Role Phone ORACIO CHILD Line Haul Driver LOREN RYAN Neurologist PATRICIA ASCENCIO Hematology/Oncology MAYLIN GARRIDO Retail Wireless Sales Representative SHABANA MENDEZ Gynecological/Oncology [phone] Assessment Encounter Date Assessment Date Assessment LastModified by Organization Details LastModified Time 04/24/2024 04/24/2024 Ms Pratt has brought in a medication list from her pharmacy, it may not be accurate. She states that it does not include her blood pressure medicine that starts with the letter, C. Her EHR lists Chlorthalidone , which if this is accurate was last filled on 04/11/2023. She needs to bring in all her medications with her in 6 weeks oajao Not available 04/24/2024 10:24:14 Plan of Treatment Reminders Order Date Submit Date Provider Last Modified By Organization Details Last Modified Time Details Appointments ANY 15 2024 09:15A Oscar Servin MD Not available Not available Not available Lab CBC 2024 025 [facility], [address], [address], [place], [address], 04/16/2025 06:17:04 basic metabol ic 1998 panel, serum or plasma 2024 025 [facility], [address], [address], [place], [address], 04/16/2025 06:17:00 TSH, ultra-s ensitiv e, serum 2024 025 [facility], [address] [facility], [address], [place], [address], 04/16/2025 06:17:03 influen za virus A + B + SARS-Co V-2 (COVID1 9) Ag panel, rapid IA, upper respira tory specime n [address] [facility], [address], [place], [address], 04/04/2025 14:10:11 HbA1c (hemogl obin A1c), blood 2024 025 [facility], [address] [place] [address], [address], [place], [address], 04/16/2025 06:17:02 lipid panel, serum 2024 025 [facility], [address] [place] [address], [address], [place], [address], 04/16/2025 06:16:59 microal bumin/c reatini ne, mass ratio, urine 2024 025 [facility] [place], [address] [place] [address], [address], [place], [address], 05/13/2025 09:47:38 lipopro tein a, qn, serum 2023 024 [facility], [address] [place] [address], [address], [place], [address], 07/25/2024 15:12:12 basic metabol ic 1998 panel, serum or plasma 2023 024 [facility], [address], [address], [place], [address], 07/25/2024 06:19:35 CBC 2023 024 [facility], [address], [address], [place], [address], 07/25/2024 06:19:36 HbA1c (hemogl obin A1c), blood 2023 024 [facility], [address], [address], [place], [address], 07/25/2024 06:19:35 lipid panel, serum 2023 024 [facility], [address], [address], [place], [address], 07/25/2024 06:19:34 lipid panel, serum 2022 023 [facility], [address], [address], [place], [address], 09/09/2023 09:18:38 AST/SGO T (aspart ate aminotr ansfera se), serum or plasma 2022 023 [facility], [address], [address], [place], [address], 09/09/2023 09:18:39 ALT (alanin e aminotr ansfera se), serum or plasma 2022 023 [facility], [address], [address], [place], [address], 09/09/2023 09:18:40 spep, serum, reflex immunof ixation 2022 023 [facility], [address] [facility] [facility] [address], [address], [place], [address], 06/16/2023 15:11:31 urinaly sis, complet e 2022 023 [facility], [address] [facility] [facility] [facility] [address], [address], [place], [address], 09/14/2023 14:35:18 HbA1c (hemogl obin A1c), blood 2022 023 [facility], [address] [facility], [address], [place], [address], 06/16/2023 15:11:32 lipid panel, serum 2022 023 [facility], [address] [facility], [address], [place], [address], 06/14/2023 06:15:11 Referral hematol ogist referra l - Follow up [facility] 2022 023 [facility] Ascencio MD, [address], [place], [address], 09/14/2023 12:07:41 gastroe nterolo gist referra l - Liver cirrhos is 2022 023 adore Garrido MD, [address], [address], [place], [address], 11/24/2023 12:50:31 diabeti c ophthal mology referra l - HBA1C 6.5% 2022 023 [facility], [address], [place], [address], 07/18/2023 11:18:09 Procedures None recorde d. Surgeries None recorde d. Imaging US, upper extremi ty, nonvasc ular, limited - Small mass, medial and posteri or part of the right wrist 2024 025 [facility] ([facility]), [address] [place], [address], 05/14/2025 16:25:30 MAMMO, screeni ng, bilater al 2023 024 [facility] ([facility]), [address] [place], [address], 03/20/2025 10:36:43 MAMMO, screeni ng, bilater al 2022 023 [facility] ([facility]), [address] [place], [address], 07/05/2023 10:57:21 Medication Orders prometh azine-D M 6.25 mg-15 mg/5 mL oral syrup [address] [facility][id number], [address] [place], [place], [id number], 01/30/2025 10:07:27 Nexleto l 180 mg tablet [address] [facility]20229, [address], [place], [id number], 07/26/2024 19:50:40 Ventoli n HFA 90 mcg/act uation aerosol inhaler [address] [facility] #52327, [address], [place], [id number], 07/24/2024 09:45:12 Ozempic 0.25 mg or 0.5 mg (2 mg/3 mL) subcuta neous pen injecto r [address] [facility] #80272, [address], [place], [id number], 07/24/2024 19:55:50 Nexleto l 180 mg tablet [address] [facility] #92532, [address], [place], [id number], 07/26/2024 19:50:32 flutica sone propion ate 50 mcg/act uation nasal spray,s uspensi on [address] [facility] #01262, [address], [place], [id number], 06/09/2023 09:59:12 Ozempic 0.25 mg or 0.5 mg (2 mg/1.5 mL) subcuta neous pen injecto r [address] [facility], [address], [place], [id number], 06/09/2023 13:14:50 Patient TargetsNo targets recorded. Patient Instructions Encounter Date Encounter Id Patient Instructions Last Modified By Organization Details Last Modified Time 06/09/2023 [id number] learning about breast cancer screening oajao Not available 06/09/2023 10:09:58 cirrhosis: care instructions oajao Not available 06/09/2023 10:02:19 liver disease di et: care instructions oajao Not available 06/09/2023 10:02:19 Fasting labs Ozempic, side effects were discussed GI MMG Nexletol? Note from the [employer] Operator Follow up in 4 weeks with all her medications oajao Not available 06/09/2023 10:11:40 Detailed visit oajao Not available 0 06/09/2023 11:06:31 07/18/2023 [id number] A healthy lifestyle: care instructions oajao Not available 07/18/2023 11:01:33 body mass index: care instructions oajao Not available 07/18/2023 11:01:27 learning about healthy weight oajao Not available 07/18/2023 11:01:27 type 2 diabetes: care instructions oajao Not available 07/18/2023 11:14:41 Ophthalmology report (Dr Fraser?) Nexletol, side effects including tendon rupture were discussed Lab in 6 weeks Follow up in 5 months and PRN oajao Not available 07/18/2023 11:22:33 04/24/2024 [id number] Labs Follow up i n 6 weeks with all your medications oajao Not available 04/24/2024 09:56:19 07/24/2024 [id number] A healthy lifestyle: care instructions oajao Not available 07/24/2024 09:33:29 A healthy lifestyle: care instructions oajao Not available 07/24/2024 09:33:29 body mass index: care instructions oajao Not available 07/24/2024 09:33:15 learning about healthy weight oajao Not available 07/24/2024 09:33:15 learning about breast cancer screening oajao Not available 07/24/2024 09:30:17 Labs (Old and ne w orders) COVID vaccine Increase Ozempic to 0.5 mg weekly Start Nexletol Follow up in 2 months oajao Not available 07/24/2024 09:51:08 01/30/2025 [id number] upper respirator y infection (cold): care instructions oajao Not available 01/30/2025 10:07:26 body mass index: care instructions oajao Not available 01/30/2025 10:07:26 learning about healthy weight oajao Not available 01/30/2025 10:07:26 Labs US MMG as previously ordered Follow up in 4 weeks with all your medications oajao Not available 01/30/2025 09:58:22 Reason for Referral Diabetic Ophthalmology Refer ral for Type 2 diabetes mellitus without complication HBA1C 6.5% Referring Physician: Daly Servin, Internal Medicine, Encounter Date: 06/09/2023 Retail Wireless Sales Representative Referral for Cirrhosis of liver Liver cirrhosis Liver cirrhosis Referring Physician: Daly Servin Internal Medicine, Encounter Date: 06/09/2023 Follow up [facility] Referring Physician: Daly Servin Internal Medicine, Encounter Date: 07/18/2023 Results Created Date Observation Date Name Description Value Unit Range Abnormal Flag Note LastModifiedBy Organization Detail LastModifiedTime 06/13/20 23 06/14/2023 LIPID PANEL cholesterol, total 247 mg/dL 100-19 9 above high normal Not Available [facility] ([facility]) [address] [place], [address], 06/14/2023 06:15:11 06/13/20 23 06/14/2023 LIPID PANEL triglyceride s 155 mg/dL 0-149 above high normal Not Available [facility] ([facility]) [address] [place], [address], 06/14/2023 06:15:11 06/13/20 23 06/14/2023 LIPID PANEL HDL cholesterol 60 mg/dL >39 Not Available [facility] ([facility]) [address] [place], [address], 06/14/2023 06:15:11 06/13/20 23 06/14/2023 LIPID PANEL VLDL cholesterol neto 28 mg/dL 5-40 Not Available [facility] ([facility]) [address] [place], [address], 06/14/2023 06:15:11 06/13/20 23 06/14/2023 LIPID PANEL LDL chol calc ([facility]) 159 mg/dL 0-99 above high normal Not Available [facility] ([facility]) [address] [place], [address], 06/14/2023 06:15:11 06/13/20 23 06/14/2023 HEMOG LOBIN A1C hemoglobin A1C 6.4 % 4.8-5. 6 above high normal Predi abete s: 5.7 - 6.4 Diabe victorina: >6.4 Glyce desiree contr ol for adult s with diabe victorina: <7.0 Not Available [facility] ([facility]) [address] [place], [address], 06/16/2023 15:11:32 06/13/20 23 06/13/2023 UNABL E TO VOID unable to void COMMEN T Patie nt unabl e to void. Urine to be colle cted at a later date. Not Available [facility] ([facility]) [address] [facility], [place], [address], 06/14/2023 06:15:12 06/13/20 23 06/14/2023 DIABE VICTORINA PATIE NT EDUCA TION pdf . Not Available [facility] ([facility]) [address] [facility], [place], [address], 06/14/2023 06:15:12 06/13/20 23 06/15/2023 IMMUN OFIXA TION REFLE X, SERUM immunoglobul in g, qn, serum 2877 mg/dL 586-16 02 above high normal Not Available [facility] ([facility]) [address] [facility], [place], [address], 06/16/2023 15:11:33 06/13/20 23 06/15/2023 IMMUN OFIXA TION REFLE X, SERUM immunoglobul in A, qn, serum 111 mg/dL 64-422 Not Available [facility] ([facility]) [address] [facility] [facility], [place], [address], 06/16/2023 15:11:33 06/13/20 23 06/15/2023 IMMUN OFIXA TION REFLE X, SERUM immunoglobul in M, qn, serum 37 mg/dL 26-217 Not Available [facility] ([facility]) [address] [place], [address], 06/16/2023 15:11:33 06/13/20 23 06/16/2023 IMMUN OFIXA TION REFLE X, SERUM immunofixati on result, serum COMMEN T abnormal Immun ofixa tion shows IgG monoc lonal prote in with lambd a light chain speci ficit y. Not Available [facility] ([facility]) [address] [facility], [place], [address], 06/16/2023 15:11:33 06/13/20 23 06/14/2023 DIABE VICTOIRNA PALOMOE NT EDUCA TION pdf NOT APPLIC ABLE Not Available [facility] ([facility]) [address] [facility] [facility], [place], [address], 06/16/2023 15:11:32 06/13/20 23 06/13/2023 MULTI PLE MYELO MA CASCA DE please note: COMMEN T Prote in elect ropho resis scan will follo w via compu ter, mail, or couri er mirian mendoza. Not Available [facility] ([facility]) [address] [facility] [facility], [place], [address], 06/16/2023 15:11:31 06/13/20 23 06/14/2023 MULTI PLE MYELO MA CASCA DE protein, total 8.1 g/dL 6.0-8. 5 Not Available [facility] ([facility]) [address] [facility], [place], [address], 06/16/2023 15:11:31 06/13/20 23 06/15/2023 MULTI PLE MYELO MA CASCA DE albumin 3.5 g/dL 2.9-4. 4 Not Available [facility] ([facility]) [address] [facility] [facility], [place], [address], 06/16/2023 15:11:31 06/13/20 23 06/15/2023 MULTI PLE MYELO MA CASCA DE tehyh-4-vztd ulin 0.3 g/dL 0.0-0. 4 Not Available [facility] ([facility]) [address] [facility], [place], [address], 06/16/2023 15:11:31 06/13/20 23 06/15/2023 MULTI PLE MYELO MA CASCA DE atauj-4-plpa ulin 0.9 g/dL 0.4-1. 0 Not Available [facility] ([facility]) [address] [facility], [place], [address], 06/16/2023 15:11:31 06/13/20 23 06/15/2023 MULTI PLE MYELO MA CASCA DE beta globulin 1.1 g/dL 0.7-1. 3 Not Available [facility] ([facility]) [address] [facility], [place], [address], 06/16/2023 15:11:31 06/13/20 23 06/15/2023 MULTI PLE MYELO MA CASCA DE gamma globulin 2.2 g/dL 0.4-1. 8 above high normal Not Available [facility] ([facility]) [address] [place], [address], 06/16/2023 15:11:31 06/13/20 23 06/15/2023 MULTI PLE MYELO MA CASCA DE M-spike 1.7 g/dL notobs erved above high normal Not Available [facility] ([facility]) [address] [place], [address], 06/16/2023 15:11:31 06/13/20 23 06/15/2023 MULTI PLE MYELO MA CASCA DE globulin, total 4.6 g/dL 2.2-3. 9 above high normal Not Available [facility] ([facility]) [address] [place], [address], 06/16/2023 15:11:31 06/13/20 23 06/15/2023 MULTI PLE MYELO MA CASCA DE A/G ratio 0.8 0.7-1. 7 Not Available [facility] ([facility]) [address] [place], [address], 06/16/2023 15:11:31 06/13/20 23 06/15/2023 MULTI PLE MYELO MA CASCA DE reflex testing . Not Available [facility] ([facility]) [address] [place], [address], 06/16/2023 15:11:31 06/13/20 23 06/16/2023 MULTI PLE MYELO MA DEANGELOA DE pdf . Not Available [facility] ([facility]) [address] [facility], [place], [address], 06/16/2023 15:11:31 09/08/20 23 09/09/2023 LIPID PANEL cholesterol, total 243 mg/dL 100-19 9 above high normal Not Available [facility] ([facility]) [address] [facility], [place], [address], 09/09/2023 09:18:38 09/08/20 23 09/09/2023 LIPID PANEL triglyceride s 158 mg/dL 0-149 above high normal Not Available [facility] ([facility]) [address] [facility], [place], [address], 09/09/2023 09:18:38 09/08/20 23 09/09/2023 LIPID PANEL HDL cholesterol 58 mg/dL >39 Not Available [facility] ([facility]) [address] [facility], [place], [address], 09/09/2023 09:18:38 09/08/20 23 09/09/2023 LIPID PANEL VLDL cholesterol neto 28 mg/dL 5-40 Not Available [facility] ([facility]) [address] [facility], [place], [address], 09/09/2023 09:18:38 09/08/20 23 09/09/2023 LIPID PANEL LDL chol calc ([facility]) 157 mg/dL 0-99 above high normal Not Available [facility] ([facility]) [address] [place], [address], 09/09/2023 09:18:38 09/08/20 23 09/09/2023 AST (SGOT ) AST (SGOT) 20 IU/L 0-40 Not Available [facility] ([facility]) [address] [facility] [place], [address], 09/09/2023 09:18:39 09/08/20 23 09/09/2023 ALT (SGPT ) ALT (SGPT) 20 IU/L 0-32 Not Available [facility] ([facility]) [address] [facility] [place], [address], 09/09/2023 09:18:40 07/24/20 24 07/25/2024 LIPID PANEL cholesterol, total 284 mg/dL 100-19 9 above high normal Not Available [facility] ([facility]) [address] [facility] [place], [address], 07/25/2024 06:19:34 07/24/20 24 07/25/2024 LIPID PANEL triglyceride s 153 mg/dL 0-149 above high normal Not Available [facility] ([facility]) [address] [place], [address], 07/25/2024 06:19:34 07/24/20 24 07/25/2024 LIPID PANEL HDL cholesterol 69 mg/dL >39 Not Available [facility] ([facility]) [address] [place], [address], 07/25/2024 06:19:34 07/24/20 24 07/25/2024 LIPID PANEL VLDL cholesterol neto 28 mg/dL 5-40 Not Available [facility] ([facility]) [address] [place], [address], 07/25/2024 06:19:34 07/24/20 24 07/25/2024 LIPID PANEL LDL chol calc ([facility]) 187 mg/dL 0-99 above high normal Not Available [facility] ([facility]) [address] [place], [address], 07/25/2024 06:19:34 07/24/20 24 07/25/2024 BASIC METAB OLIC PANEL (7) glucose 113 mg/dL 70-99 above high normal Not Available [facility] ([facility]) [address] [place], [address], 07/25/2024 06:19:35 07/24/20 24 07/25/2024 BASIC METAB OLIC PANEL (7) BUN 12 mg/dL 8-27 Not Available [facility] ([facility]) [address] [place], [address], 07/25/2024 06:19:35 07/24/20 24 07/25/2024 BASIC METAB OLIC PANEL (7) creatinine 1.05 mg/dL 0.57-1 .00 above high normal Not Available [facility] ([facility]) [address] [place], [address], 07/25/2024 06:19:35 07/24/20 24 07/25/2024 BASIC METAB OLIC PANEL (7) eGFR 55 mL/mi n/1.7 3 >59 below low normal Not Available [facility] ([facility]) [address] [place], [address], 07/25/2024 06:19:35 07/24/20 24 07/25/2024 BASIC METAB OLIC PANEL (7) BUN/creatini ne ratio 11 12-28 below low normal Not Available [facility] ([facility]) [address] [facility] [place], [address], 07/25/2024 06:19:35 07/24/20 24 07/25/2024 BASIC METAB OLIC PANEL (7) sodium 140 mmol/ L 134-14 4 Not Available [facility] ([facility]) [address] [facility] [place], [address], 07/25/2024 06:19:35 07/24/20 24 07/25/2024 BASIC METAB OLIC PANEL (7) potassium 4.3 mmol/ L 3.5-5. 2 Not Available [facility] ([facility]) [address] [facility] [place], [address], 07/25/2024 06:19:35 07/24/20 24 07/25/2024 BASIC METAB OLIC PANEL (7) chloride 100 mmol/ L 96-106 Not Available [facility] ([facility]) [address] [facility], [place], [address], 07/25/2024 06:19:35 07/24/20 24 07/25/2024 BASIC METAB OLIC PANEL (7) carbon dioxide, total 21 mmol/ L 20-29 Not Available [facility] ([facility]) [address] [facility], [place], [address], 07/25/2024 06:19:35 07/24/20 24 07/24/2024 HEMOG LOBIN A1C hemoglobin A1C 6.2 % 4.8-5. 6 above high normal Predi abete s: 5.7 - 6.4 Diabe victorina: >6.4 Glyce desiree contr ol for adult s with diabe victorina: <7.0 Not Available [facility] ([facility]) [address] [facility], [place], [address], 07/25/2024 06:19:35 07/24/2007/24/2024 CBC, PLATE LET, NO DIFFE RENTI AL WBC 5.8 x10e3 /uL 3.4-10 .8 Not Available [facility] ([facility]) [address] [facility], [place], [address], 07/25/2024 06:19:36 07/24/20 24 07/24/2024 CBC, PLATE LET, NO DIFFE RENTI AL RBC 4.59 x10e6 /uL 3.77-5 .28 Not Available [facility] ([facility]) [address] [facility], [place], [address], 07/25/2024 06:19:36 07/24/20 24 07/24/2024 CBC, PLATE LET, NO DIFFE RENTI AL hemoglobin 13.8 g/dL 11.1-1 5.9 Not Available [facility] ([facility]) [address] [facility], [place], [address], 07/25/2024 06:19:36 07/24/2007/24/2024 CBC, PLATE LET, NO DIFFE RENTI AL hematocrit 43.5 % 34.0-4 6.6 Not Available [facility] ([facility]) [address] [facility], [place], [address], 07/25/2024 06:19:36 07/24/20 24 07/24/2024 CBC, PLATE LET, NO DIFFE RENTI AL MCV 95 fL 79-97 Not Available [facility] ([facility]) [address] [facility], [place], [address], 07/25/2024 06:19:36 07/24/20 24 07/24/2024 CBC, PLATE LET, NO DIFFE RENTI AL MCH 30.1 pg 26.6-3 3.0 Not Available [facility] ([facility]) [address] [facility], [place], [address], 07/25/2024 06:19:36 07/24/2007/24/2024 CBC, PLATE LET, NO DIFFE RENTI AL MCHC 31.7 g/dL 31.5-3 5.7 Not Available [facility] ([facility]) [address] [place], [address], 07/25/2024 06:19:36 07/24/2007/24/2024 CBC, PLATE LET, NO DIFFE RENTI AL RDW 13.0 % 11.7-1 5.4 Not Available [facility] ([facility]) [address] [place], [address], 07/25/2024 06:19:36 07/24/20 24 07/24/2024 CBC, PLATE LET, NO DIFFE RENTI AL platelets 243 x10e3 /uL 150-45 0 Not Available [facility] ([facility]) [address] [place] [place], [address], 07/25/2024 06:19:36 07/24/20 24 07/25/2024 LIPOP ROTEI N (A) lipoprotein (A) 189.3 nmol/ L <75.0 above high normal Note: Value s great er than or equal to 75.0 nmol/ L may indic ate an indep enden t risk facto r for CHD, but must be evalu ated with cauti on when appli ed to non-C aucas kenn popul ation s due to the influ ence of rohan ic facto rs on Lp(a) acros s ethni citie s. Not Available [facility] ([facility]) [address] [place], [address], 07/25/2024 15:12:12 04/15/20 25 04/16/2025 LIPID PANEL cholesterol, total 277 mg/dL 100-19 9 above high normal Not Available [facility] ([facility]) [address] [place], [address], 04/16/2025 06:16:59 04/15/20 25 04/16/2025 LIPID PANEL triglyceride s 130 mg/dL 0-149 Not Available [facility] ([facility]) [address] [place], [address], 04/16/2025 06:16:59 04/15/20 25 04/16/2025 LIPID PANEL HDL cholesterol 59 mg/dL >39 Not Available [facility] ([facility]) [address] [place], [address], 04/16/2025 06:16:59 04/15/20 25 04/16/2025 LIPID PANEL VLDL cholesterol neto 23 mg/dL 5-40 Not Available [facility] ([facility]) [address] [place], [address], 04/16/2025 06:16:59 04/15/20 25 04/16/2025 LIPID PANEL LDL chol calc ([facility]) 195 mg/dL 0-99 above high normal Not Available [facility] ([facility]) [address] [place], [address], 04/16/2025 06:16:59 04/15/20 25 04/16/2025 LIPID PANEL LDL calc comment: COMMEN T Consi casey evalu ating for Famil ial Hyper abrahan stero lemia (FH), if clini eric indic ated. Not Available [facility] ([facility]) [address] [place], [address], 04/16/2025 06:16:59 04/15/20 25 04/16/2025 BASIC METAB OLIC PANEL (7) glucose 107 mg/dL 70-99 above high normal Not Available [facility] ([facility]) [address] [place], [address], 04/16/2025 06:17:00 04/15/20 25 04/16/2025 BASIC METAB OLIC PANEL (7) BUN 9 mg/dL 8-27 Not Available [facility] ([facility]) [address] [place], [address], 04/16/2025 06:17:00 04/15/20 25 04/16/2025 BASIC METAB OLIC PANEL (7) creatinine 0.98 mg/dL 0.57-1 .00 Not Available [facility] ([facility]) [address] [place], [address], 04/16/2025 06:17:00 04/15/20 25 04/16/2025 BASIC METAB OLIC PANEL (7) eGFR 60 mL/mi n/1.7 3 >59 Not Available [facility] ([facility]) [address] [place], [address], 04/16/2025 06:17:00 04/15/20 25 04/16/2025 BASIC METAB OLIC PANEL (7) BUN/creatini ne ratio 9 12-28 below low normal Not Available [facility] ([facility]) [address] [facility] [place], [address], 04/16/2025 06:17:00 04/15/2004/16/2025 BASIC METAB OLIC PANEL (7) sodium 138 mmol/ L 134-14 4 Not Available [facility] ([facility]) [address] [facility] [place], [address], 04/16/2025 06:17:00 04/15/2004/16/2025 BASIC METAB OLIC PANEL (7) potassium 4.5 mmol/ L 3.5-5. 2 Not Available [facility] ([facility]) [address] [facility] [place], [address], 04/16/2025 06:17:00 04/15/2004/16/2025 BASIC METAB OLIC PANEL (7) chloride 103 mmol/ L 96-106 Not Available [facility] ([facility]) [address] [facility] [place], [address], 04/16/2025 06:17:00 04/15/2004/16/2025 BASIC METAB OLIC PANEL (7) carbon dioxide, total 22 mmol/ L 20-29 Not Available [facility] ([facility]) [address] [facility] [place], [address], 04/16/2025 06:17:00 04/15/2004/15/2025 UNABL E TO VOID unable to void Commen t Patie nt unabl e to void. Urine to be colle cted at a later date. Not Available [facility] ([facility]) [address] [facility] [place], [address], 04/16/2025 06:17:01 04/15/20 25 04/15/2025 HEMOG LOBIN A1C hemoglobin A1C 5.9 % 4.8-5. 6 above high normal Predi abete s: 5.7 - 6.4 Diabe victorina: >6.4 Glyce desiree contr ol for adult s with diabe victorina: <7.0 Not Available [facility] ([facility]) [address] [facility], [place], [address], 04/16/2025 06:17:02 04/15/2004/16/2025 TSH TSH 1.470 uIU/m L 0.450- 4.500 Not Available [facility] ([facility]) [address] [facility], [place], [address], 04/16/2025 06:17:03 04/15/20 25 04/15/2025 CBC, PLATE LET, NO DIFFE RENTI AL WBC 6.0 x10e3 /uL 3.4-10 .8 Not Available [facility] ([facility]) [address] [facility], [place], [address], 04/16/2025 06:17:03 04/15/20 25 04/15/2025 CBC, PLATE LET, NO DIFFE RENTI AL RBC 4.35 x10e6 /uL 3.77-5 .28 Not Available [facility] ([facility]) [address] [place], [address], 04/16/2025 06:17:03 04/15/20 25 04/15/2025 CBC, PLATE LET, NO DIFFE RENTI AL hemoglobin 13.1 g/dL 11.1-1 5.9 Not Available [facility] ([facility]) [address] [place], [address], 04/16/2025 06:17:03 04/15/2004/15/2025 CBC, PLATE LET, NO DIFFE RENTI AL hematocrit 41.5 % 34.0-4 6.6 Not Available [facility] ([facility]) [address] [facility], [place], [address], 04/16/2025 06:17:03 04/15/20 25 04/15/2025 CBC, PLATE LET, NO DIFFE RENTI AL MCV 95 fL 79-97 Not Available [facility] ([facility]) [address] [facility], [place], [address], 04/16/2025 06:17:03 04/15/20 25 04/15/2025 CBC, PLATE LET, NO DIFFE RENTI AL MCH 30.1 pg 26.6-3 3.0 Not Available [facility] ([facility]) [address] [facility], [place], [address], 04/16/2025 06:17:03 04/15/20 25 04/15/2025 CBC, PLATE LET, NO DIFFE RENTI AL MCHC 31.6 g/dL 31.5-3 5.7 Not Available [facility] ([facility]) [address] [facility], [place], [address], 04/16/2025 06:17:03 04/15/20 25 04/15/2025 CBC, PLATE LET, NO DIFFE RENTI AL RDW 12.7 % 11.7-1 5.4 Not Available [facility] ([facility]) [address] [facility], [place], [address], 04/16/2025 06:17:03 04/15/2004/15/2025 CBC, PLATE LET, NO DIFFE RENTI AL platelets 236 x10e3 /uL 150-45 0 Not Available [facility] ([facility]) [address] [facility], [place], [address], 04/16/2025 06:17:03 06/07/20 23 06/07/2023 trans -thor acic echoc ardio gram (TTE) (PROC ) No observ ation record ed. [facility] [address], [place], [address], 06/09/2023 09:38:22 07/05/20 23 07/05/2023 MAMMO , scree zbigniew, bilat eral No observ ation record ed. [facility] [address] [place], [address], 07/18/2023 10:58:12 10/11/20 23 10/11/2023 diagn ostic bone marro w; biops y and aspir ation (PROC ) No observ ation record ed. [address], [place], [address], 10/11/2023 12:08:24 11/04/20 23 11/03/2023 PET-C T, whole body scan No observ ation record ed. [address], [place], [address], 11/04/2023 10:29:35 11/29/19 25 11/29/2024 PET-C T, skull base to mid-t high scan No observ ation record ed. [address], [place], [address], 01/30/2025 09:41:01 03/20/20 25 03/20/2025 MAMMO , scree zbigniew, bilat eral No observ ation record ed. [facility] [address], [place], [address], 03/28/2025 10:45:54 Result Notes None recorded. Problems Name Problem SNOMED Code Status Onset Date Resolution Date Notes Provider Name and Address Organization Details Recorded Time Dysuria 04323672 Active Not Available [facility] 4 08:11:46 Asthma 210876353 Active Not Available [facility] 4 08:11:46 Benign hypertens ion 45826109 Active Daly Servin MD Attn: Accounting ,[address] [facility], [place], [address] , [facility] 5 09:41:13 Recurrent urinary tract infection 207364555 Active Not Available [facility] 4 08:11:46 Acute urinary tract infection 698506069 Active Not Available [facility] 4 08:11:46 Essential hypertens ion 81952517 Active Not Available [facility] 4 08:11:47 Pure hyperchol esterolem ia 046598595 Active Not Available [facility] 4 08:11:46 Diabetes mellitus 47365493 Active Not Available [facility] 4 08:11:47 Malignant essential hypertens ion 46085080 Active Not Available [facility] 4 08:11:47 Abscess of buttock 62493691 Active Not Available [facility] 4 08:11:47 Polyp of colon 96022774 Active tubular adenoma x 16 removed 06/2019 Not Available [facility] 4 08:11:47 Urinary tract infectiou s disease 01934945 Active Not Available [facility] 4 08:11:47 Localized tendernes s of breast 760991644 Active Not Available [facility] 4 08:11:46 Disorder of lipid metabolis m 721422458 Active Not Available [facility] 4 08:11:46 Type 2 diabetes mellitus without complicat ion 344586818 Active Not Available [facility] 4 08:11:46 Loss of sense of smell 66355792 Active Not Available [facility] 4 08:11:46 Gastroeso phageal reflux disease 890622036 Active Not Available [facility] 4 08:11:46 Vitamin D deficienc y 15189465 Active Not Available [facility] 4 08:11:46 Urinary incontine nce 239438157 Active Not Available [facility] 4 08:11:46 Postmenop ausal osteoporo sis 139411365 Active Not Available [facility] 4 08:11:46 Microalbu minuric diabetic nephropat hy 630696306 Active Not Available [facility] 4 08:11:46 Otitis media 56367899 Active Not Available [facility] 4 08:11:47 Pain of hip region 26485007 Active Not Available [facility] 4 08:11:46 Alzheimer 's disease 89875286 Active 2017 Not Available [facility] 4 08:11:46 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 809165629 Active 2017 Not Available [facility] 4 08:11:46 History of total knee arthropla sty 522307200977 5 Active 2017 Not Available [facility] 4 08:11:46 Impaired mobility 71881951 Active 2017 Not Available [facility] 4 08:11:47 Degenerat ion of lumbosacr al intervert ebral disc 55610350 Active 2018 Not Available [facility] 4 08:11:47 Influenza vaccinati on declined 047526886 Active 2018 Not Available [facility] 4 08:11:46 Complaini ng of hair loss Active 2018 Not Available [facility] 4 08:11:46 Paraesoph ageal hernia 3036168 Active 2018 Not Available [facility] 4 08:11:46 Hiatal hernia 20578915 Active 2018 Not Available [facility] 4 08:11:47 Cholelith iasis without obstructi on 17191062 Active 2018 Not Available [facility] 4 08:11:47 History of polyp of colon 240527492 Active 2019 Not Available [facility] 4 08:11:46 Statin declined 155512592 Active 2019 Not Available [facility] 4 08:11:46 Statin not tolerated 799000634 Active 2020 Not Available [facility] 4 08:11:46 Degenerat ion of cervical intervert ebral disc 03079456 Active 2021 Not Available [facility] 4 08:11:47 Degenerat ion of lumbar intervert ebral disc 25874313 Active 2021 Not Available [facility] 4 08:11:46 Steatotic liver disease 096305055 Active 2021 Not Available [facility] 4 08:11:46 Cirrhosis of liver 36922889 Active 2022 Not Available [facility] 4 08:11:46 Tubular adenomato us polyp of colon 708483961 Active 2022 Not Available [facility] 4 08:11:46 Diastolic dysfuncti on 9779659 Active 2022 Not Available [facility] 4 08:11:46 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 Procedures Surgical History Date Name Laterality Status Provider Name and Address Organization Details Recorded Time 024 Diabetic Foot Exam completed Daly Servin MD Attn: Accounting,[address] [place], [address], [facility] 04/24/2024 10:20:31 023 Colonoscopy completed Daly Servin MD Attn: Accounting,[address] [facility], [place], [address], [facility] 03/29/2023 12:37:07 023 colonoscopy completed Daly Servin MD Attn: Accounting,[address] [facility], [place], [address], [facility] 04/27/2023 14:17:07 019 colonoscopy completed Daly Servin MD Attn: Accounting,[address] [facility], [place], [address], [facility] 09/17/2020 11:11:47 018 Total hysterectomy completed Daly Servin MD Attn: Accounting,[address] [facility], [place], [address], [place] [facility] 03/20/2018 12:45:01 017 Endometrial Biopsy completed Zofia Ordaz MD Attn: Accounting,[address] [facility], [place], [address], [place] [facility] 10/14/2017 15:22:50 017 Endometrial Biopsy completed Zofia Ordaz MD Attn: Accounting,[address] [place], [address], [facility] 09/23/2017 14:15:42 017 Other completed Katiuska GloverGENE limon [facility] 09/14/2017 15:16:46 016 Date of Last Pap Smear completed Katiuska Steward MA [facility] 09/14/2017 15:06:05 016 Most Recent Mammogram completed Katiuska Steward MA [facility] 09/23/2017 10:22:51 013 Orthopedic Surgery completed Maria Antonia Hernandez MA [facility] 12/30/2014 12:16:46 012 Orthopedic Surgery completed Maria Antonia Hernandez MA [facility] 12/30/2014 12:16:20 974 Tubal Ligation completed Maria Antonia Hernandez MA [facility] 12/30/2014 12:17:22 Tonsillectomy completed Sandy Llanos MA [facility] 10/14/2017 14:55:01 Total hysterectomy completed Katiuska Osuna GENE degroot [facility] 07/21/2018 10:05:58 laparoscopic cholecystectomy completed Daly Servin MD Attn: Accounting,[address] [place], [address], [facility] 12/06/2019 05:19:42 repair of paraesophageal diaphragmatic hernia completed Daly Servin MD Attn: Accounting,[address] [place], [address], [facility] 12/06/2019 05:20:12 cataract surgery completed Dolores Valladares MA [facility] 07/24/2024 09:28:12 Breast Surgery completed February Alfonso sigala MA [facility] 10/09/2014 10:11:16 Imaging Results None recorded. Procedure Notes None recorded. Medical Equipment None Reported. Allergies Allergen ID Allergen Name Allergen Category Reaction Reaction Severity Criticality Documentation Date Start Date Code Code System Note Provider Name and Address Organization Details Recorded Time 280049 Product containin g 3-hydroxy -3-methyl glutaryl- coenzyme A reductase inhibitor (product) medicatio n myalgias (muscle pain) severe Not available 07/18/2023 53040 009 SNOMED Daly Servin MD Attn: Prasanth samuel,[address] [facility], [place], [address], [place] [facility] 3 11:05:44 4837 latex environme nt,medica tion hives severe Not available 10/09/2014 88163 91 RxNorm Fabiana Nery, GENE null, [place] - [facility] 4 10:11:16 4838 egg extract food,medi cation hives moderate Not available 10/09/2014 16922 15 RxNorm Fabiana GENE [place], [place] - [facility] 4 10:11:16 Medications Name Sig Start Date Stop Date Status Note LastModified by Organization Details LastModified Time lumbo-sac ral orthosis 09/23 completed Not Available Not Available Not Available Prescript ion - Prior Authoriza tion Request 09/23 completed Not Available Not Available Not Available Qvar 80 mcg/actua tion Metered Aerosol oral inhaler Inhale 2 puffs twice a day by inhalati on route for 90 days. 09/23 completed Not Available Not Available Not Available promethaz ine-DM 6.25 mg-15 mg/5 mL oral syrup TAKE 5 ML BY MOUTH EVERY 4 HOURS FOR 4 DAYS NEEDED FOR COLD active Not Available Not Available No t Available nystatin 100,000 unit/mL oral suspensio n SHAKE LIQUID AND TAKE 5 ML BY MOUTH FOUR TIMES DAILY FOR 7 DAYS DIRECTED FOR THRUSH 07/24 completed Not Available Not Available Not Available clonidine HCl 0.1 mg tablet TAKE 1 TABLET BY MOUTH TWICE DAILY 05/16 completed Not Available Not Available Not Available prednison e 10 mg tablet 04/24 completed Not Available Not Available Not Available albuterol sulfate 2.5 mg/3 mL (0.083 %) solution for nebulizat ion USE 1 VIAL VIA NEBULIZE R THREE TIMES DAILY NEEDED active Not Available Not Available No t Available lisinopri l 20 mg-hydroc hlorothia zide 12.5 mg tablet active Not Available Not Available No t Available azithromy emani 250 mg tablet TAKE 2 TABLETS BY MOUTH ON DAY 1 THEN TAKE 1 TABLET BY MOUTH FOR DAYS 2-5 01/30 completed Not Available Not Available Not Available ofloxacin 0.3 % eye drops 01/30 completed Not Available Not Available Not Available fluconazo le 150 mg tablet TAKE 1 TABLET BY MOUTH EVERY DAY FOR 1 DAY DIRECTED 09/15 completed Not Available Not Available Not Available albuterol sulfate 1.25 mg/3 mL solution for nebulizat ion USE 1 VIAL VIA NEBULIZE R EVERY 6 HOURS NEEDED FOR SHORTNES S OF BREATH active Not Available Not Available No t Available donepezil 10 mg tablet TAKE 1/2 TABLET BY MOUTH DAILY FOR 2 WEEKS THEN TAKE 1 TABLET BY MOUTH DAILY active Not Available Not Available No t Available meloxicam 15 mg tablet TAKE 1 TABLET BY MOUTH EVERY DAY active Not Available Not Available No t Available metoprolo l succinate ER 200 mg tablet,ex tended release 24 hr 10/16 completed Not Available Not Available Not Available ondansetr on HCl 4 mg tablet 09/17 completed Not Available Not Available Not Available prednison e 20 mg tablet TAKE 2 TABLETS BY MOUTH EVERY DAY WITH MEALS FOR 5 DAYS 09/23 completed Not Available Not Available Not Available metoprolo l succinate ER 100 mg tablet,ex tended release 24 hr TAKE 1 TABLET BY MOUTH DAILY active Not Available Not Available No t Available metformin 850 mg tablet TAKE 1 TABLET BY MOUTH TWICE DAILY WITH MEALS 2024 active Not Available Not Available Not Avai lable Debrox 6.5 % ear drops Instill 5 drops twice a day by otic route for 4 days. 02/08 completed Not Available Not Available Not Available Accu-Chek Softclix Lancets USE THREE DAYS A WEEK TO TEST active Not Available Not Available No t Available oxycodone 5 mg/5 mL oral solution 08/05 completed Not Available Not Available Not Available chlorthal idone 25 mg tablet Take 1 tablet every day by oral route as directed for 90 days. 07/24 completed Not Available Not Available Not Available sulfameth oxazole 800 mg-trimet hoprim 160 mg tablet Take 1 tablet every 12 hours by oral route for 3 days. 12/06 completed Not Available Not Available Not Available peg-elect rolyte solution 420 gram oral solution 06/09 completed Not Available Not Available Not Available aspirin 81 mg tablet,de layed release Take 1 tablet every day by oral route for 90 days. 09/21 completed GI Not Available Not Available Not Available ketorolac 0.5 % eye drops 01/30 completed Not Available Not Available Not Available ofloxacin 0.3 % ear drops Instill 10 drops twice a day by otic route as directed for 14 days. 09/17 completed Not Available Not Available Not Available prednisol one acetate 1 % eye drops,enrique pension 01/30 completed Not Available Not Available Not Available lorazepam 2 mg tablet 12/06 completed Not Available Not Available Not Available benzonata te 100 mg capsule TAKE 1 CAPSULE BY MOUTH THREE TIMES DAILY FOR 7 DAYS NEEDED 04/24 completed Not Available Not Available Not Available cephalexi n 500 mg capsule Take 2 capsules every 12 hours by oral route for 7 days. active Not Available Not Available No t Available neomycin- polymyxin -dexameth 3.5 mg/mL-10, 000 unit/mL-0 .1% eye drops INSTILL 1 DROP INTO BOTH EYES FOUR TIMES DAILY X 1 WEEK AND THEN DECREASE TO TWICE DAILY UNTIL RETURN TO OFFICE. SHAKE WELL BEFORE USE 01/30 completed Not Available Not Available Not Available Cipro 500 mg tablet Take 1 tablet every 12 hours by oral route as directed for 7 days. 10/16 completed Not Available Not Available Not Available nitrofura ntoin macrocrys aggie 100 mg capsule active Not Available Not Available Not Available misoprost ol 200 mcg tablet Take 1 tablet 4 times a day by oral route for 2 days. 12/06 completed Not Available Not Available Not Available Qvar 40 mcg/actua tion Metered Aerosol oral inhaler 05/28 completed Not Available Not Available Not Available losartan 25 mg tablet TAKE 1 TABLET BY MOUTH EVERY MORNING 05/19 completed I am not taking the Losartan , it made me sick. It was cramping me Not Available Not Available Not Available Advair Diskus 250 mcg-50 mcg/dose powder for inhalatio n active Not Available Not Available Not Available omeprazol e 20 mg capsule,d elayed release TAKE 1 CAPSULE BY MOUTH DAILY 07/24 completed Not Available Not Available Not Available diclofena c sodium 75 mg tablet,de layed release one po bid prn 01/04 completed Not Available Not Available Not Available monteluka st 10 mg tablet TAKE 1 TABLET BY MOUTH EVERY DAY active Not Available Not Available No t Available hydroxyzi ne HCl 25 mg tablet Take 1 tablet 3 times a day by oral route as needed for 10 days. 07/05 completed Not Available Not Available Not Available hydrocodo ne 5 mg-acetam inophen 500 mg tablet active Not Available Not Available Not Available hydrochlo rothiazid e 25 mg tablet TAKE 1 TABLET BY MOUTH DAILY active Not Available Not Available No t Available furosemid e 20 mg tablet 01/04 completed Not Available Not Available Not Available ergocalci ferol (vitamin D2) 1,250 mcg (50,000 unit) capsule TAKE 1 CAPSULE BY MOUTH EVERY WEEK DIRECTED . FOLLOW UP 02/08 completed Not Available Not Available Not Available levofloxa emani 500 mg tablet Take 1.5 tablets every 24 hours by oral route as directed for 5 days. 08/05 completed Not Available Not Available Not Available methylpre dnisolone 4 mg tablets in a dose pack Take 1 dose pk by oral route as directed . 10/10 completed Not Available Not Available Not Available albuterol sulfate HFA 90 mcg/actua tion aerosol inhaler INHALE 2 PUFFS BY MOUTH EVERY 4 HOURS NEEDED FOR ASTHMA active Not Available Not Available No t Available lisinopri l 40 mg tablet TAKE 1 TABLET BY MOUTH EVERY DAY 03/24 completed Patient concerne d about angioede ma in family members Not Available Not Available Not Available fluticaso ne propionat e 50 mcg/actua tion nasal spray,enrique pension SHAKE LIQUID AND USE 2 SPRAYS IN EACH NOSTRIL EVERY DAY DIRECTED active Not Available Not Available No t Available Sudafed 30 mg tablet Take 2 tablets every 6 hours by oral route around the clock for 5 days. 09/23 completed Not Available Not Available Not Available amoxicill in 875 mg-potass ium clavulana te 125 mg tablet TAKE 1 TABLET BY MOUTH EVERY 12 HOURS FOR 7 DAYS 09/15 completed Not Available Not Available Not Available amoxicill in 500 mg-potass ium clavulana te 125 mg tablet 10/10 completed Not Available Not Available Not Available oxycodone 5 mg tablet 03/20 completed Not Available Not Available Not Available ezetimibe 10 mg tablet TAKE 1 TABLET BY MOUTH EVERY DAY 2024 active Not Available Not Available Not Avai lable Laxative (bisacody l) 5 mg tablet TAKE 6 TABLETS BY MOUTH AT 8AM ON 02/22 completed Not Available Not Available Not Available memantine 10 mg tablet TAKE 1 TABLET BY MOUTH TWICE DAILY active Not Available Not Available No t Available Spiriva with [employer] r 18 mcg and inhalatio n capsules Inhale 1 capsule every day by inhalati on route. 03/26 completed Not Available Not Available Not Available nitrofura ntoin monohydra te/macroc rystals 100 mg capsule Take 1 capsule every 12 hours by oral route for 7 days. 10/09 completed Not Available Not Available Not Available Atrovent HFA 17 mcg/actua tion aerosol inhaler INHALE 2 PUFFS BY MOUTH FOUR TIMES DAILY 07/01 completed Not Available Not Available Not Available fenofibra te 160 mg tablet Take 1 tablet every day by oral route for 90 days. 09/14 completed Not Available Not Available Not Available aspirin active Not Available Not Avail able Not Available iron 07/18 completed Not Available Not Available Not Available Mucinex PRN 07/07 completed Not Available Not Available Not Available Zostavax (PF) 19,400 unit/0.65 mL subcutane ous suspensio n 09/23 completed Not Available Not Available Not Available oseltamiv ir 30 mg capsule 09/17 completed Not Available Not Available Not Available cholecalc iferol (vitamin D3) 50 mcg (2,000 unit) capsule TAKE 1 CAPSULE BY MOUTH ONCE DAILY 2021 active OTC Not Available Not Available Not Avai lable Vitamin D3 50 mcg (2,000 unit) tablet Take 1 tablet every day by oral route as directed for 30 days. 02/08 completed Not Available Not Available Not Available GaviLyte- G 236 gram-22.7 4 gram-6.74 gram-5.86 gram oral solution 12/06 completed Not Available Not Available Not Available B12 active Not Available Not Availa ble Not Available OneTouch Verio test strips USE TO TEST BLOOD SUGAR ONCE DAILY active Not Available Not Available No t Available Breo Ellipta 200 mcg-25 mcg/dose powder for inhalatio n INHALE 1 PUFF BY MOUTH EVERY DAY 2024 active Not Available Not Available Not Avai lable Praluent Pen 75 mg/mL subcutane ous pen injector 75 mg every two weeks 2023 active Not Available Not Available Not Avai lable Ozempic 0.25 mg or 0.5 mg (2 mg/1.5 mL) subcutane ous pen injector Inject 0.25 mg every week by subcutan eous route as directed for 56 days. 2022 active Not Available Not Available Not Avai lable OneTouch Delica Plus Lancet 30 gauge USE TO TEST BLOOD SUGAR ONCE DAILY active Not Available Not Available No t Available Nexletol 180 mg tablet TAKE 1 TABLET BY MOUTH EVERY DAY DIRECTED FOR HIGH CHOLESTE ROL active Not Available Not Available No t Available OneTouch Verio Reflect Meter USE TO TEST BLOOD SUGAR ONCE DAILY active Not Available Not Available No t Available Trelegy Ellipta 200 mcg-62.5 mcg-25 mcg powder for inhalatio n INHALE 1 PUFF BY MOUTH EVERY 24 HOURS 07/18 completed Not Available Not Available Not Available Ozempic 0.25 mg or 0.5 mg (2 mg/3 mL) subcutane ous pen injector INJECT 0.5MG UNDER THE SKIN ONCE A WEEK 2024 active Not Available Not Available Not Avai lable Vitals Date Recorded Body height Body mass index (BMI) Body weight Heart rate Oxygen saturation Oxygen saturation in Arterial blood by Pulse oximetry Body temperature Systolic And Diastolic Provider Name and Address Organization Details Last Updated DateTime 5 162.56 cm 41.4 kg/m2 649540. 2 g 76 /min 98 % 98 % 97.9 [degF] 164/90 mm[Hg] Dolores Valladares [place] [facility] 5 09:34:18 Date Recorded Body height Body mass index (BMI) Body weight Heart rate Oxygen saturation Oxygen saturation in Arterial blood by Pulse oximetry Respiratory rate Body temperature Systolic And Diastolic Provider Name and Address Organization Details Last Updated DateTime 4 162.56 cm 40.9 kg/m2 178096. 7 g 80 /min 98 % 98 % 16 /min 98.2 [degF] 144/80 mm[Hg] Dolores Valladares MA [facility] 4 09:30:24 Date Recorded Body height Body mass index (BMI) Body weight Oxygen saturation Oxygen saturation in Arterial blood by Pulse oximetry Respiratory rate Heart rate Systolic And Diastolic Provider Name and Address Organization Details Last Updated DateTime 3 162.56 cm 42.4 kg/m2 818601. 32 g 95 % 95 % 18 /min 92 /min 124/76 mm[Hg] Dolores Valladares MA [facility] 3 09:36:23 Date Recorded Body height Body mass index (BMI) Body weight Heart rate Oxygen saturation Oxygen saturation in Arterial blood by Pulse oximetry Systolic And Diastolic Provider Name and Address Organization Details Last Updated DateTime 3 162.56 cm 41.4 kg/m2 691063. 76 g 80 /min 96 % 96 % 124/80 mm[Hg] Dolores Valladares MA [facility] 3 10:26:49 Date Recorded Body height Body mass index (BMI) Body weight Heart rate Oxygen saturation Oxygen saturation in Arterial blood by Pulse oximetry Respiratory rate Systolic And Diastolic Provider Name and Address Organization Details Last Updated DateTime 4 162.56 cm 41 kg/m2 654548. 58 g 90 /min 98 % 98 % 14 /min 130/84 mm[Hg] Dolores Valladares MA [facility] 4 09:30:42 Social History Question Answer Notes LastModified by Organizat ion Details LastModified Time Tobacco Smoking Status Never Smoker FebruaryGENE [facility] 10/09/2014 10:11:16 Do You Have An Advance Directive? No Information n ot available 05/23/2015 Are You Blind Or Do You Have Difficulty Seeing? No Information n ot available 01/16/2021 Is Blood Transfusion Acceptable In An Emergency? Yes Information not available 05/23/2015 What Is Your Level Of Caffeine Consumption? None Information not available 05/23/2015 How Much Tobacco Do You Chew? None Information not available 05/23/2015 In The 14 Days Before Symptom Onset, Have You Had Close Contact With A Laboratory-confirm ed COVID-19 While That Case Was Ill? No Information n ot available 04/27/2021 In The 14 Days Before Symptom Onset, Have You Had Close Contact With A Person Who Is Under Investigation For COVID-19 While That Person Was Ill? No Information not available 04/27/2021 Have You Been To An Area Known To Be High Risk For COVID-19? Yes Information not available 04/27/2021 Are You Deaf Or Do You Have Serious Difficulty Hearing? No Information not available 01/16/2021 What Type Of Diet Are You Following? REGULAR Information n ot available 05/23/2015 Education 12 Information no t available 05/23/2015 Are There Any Guns Present In Your Home? No Information not available 01/16/2021 Live Alone Or With Others? Alone Information not available 05/23/2015 What Was The Date Of Your Most Recent Tobacco Screening? 01/30/2025 Information not available 01/30/2025 How Many Children Do You Have? 2 Information not available 05/23/2015 Performs Monthly Self-breast Exam? Yes Information no t available 05/23/2015 Do You Use Protection During Sex? No Information not available 05/23/2015 What Is Your Relationship Status? Single Information not available 05/23/2015 Seat Belts Used Routinely Yes Information not available 05/23/2015 Are You Sexually Active? No Information not available 05/23/2015 Do You Have Smoke And Carbon Monoxide Detectors In Your Home? Yes Information not available 01/16/2021 How Much Tobacco Do You Smoke? No Information not available 05/24/2017 General Stress Level Medium Information not available 05/23/2015 Do You Use Sunscreen Routinely? No Information not available 05/23/2015 Has Tobacco Cessation Counseling Been Provided? No Information not available 01/16/2021 How Many Years Have You Smoked Tobacco? 0 Information not available 05/24/2017 Sex: Unknown Functional Status Question Answer Note LastModified by Organizat ion Details LastModified Time Do you use any illicit or recreational drugs? No Information not available 01/16/2021 What is your level of alcohol consumption? None asavala Information not available 10/09/2014 Do you or have you ever used smokeless tobacco? Never used smokeless tobacco Information not available 08/05/2020 Are you currently employed? No Information not available 05/23/2015 Are you able to care for yourself? Yes Information not available 01/16/2021 Do you or have you ever used e-cigarettes or vape? Never used electronic cigarettes Information not available 08/05/2020 What is your exercise level? Occasional Information not available 05/23/2015 Mental Status None recorded. Family History Relationship Description Onset Age of this Age Resolved Age Notes LastModified by Organization Details LastModified Time Mother Family history of stroke 70 70 Not available 12/30 12:18:05 Medical History Condition Response Coronary Artery Disease N Kidney Cyst N Blood Diseases N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 pain 38029074 M54.2 History of fall 70356641 9 Z91.81 [id number] MD Rehan Francis (Adult Med) [address] [place] [address] 23620-175 0 07/01/2022 09:24:39 07/02/2022 14:46:45 Asthma 231120997 J45.909 J30.9 OV 07/01/2022 tart Azithromyc inTessalon perlesCXRC omplete the course of steroidsCo ntinue Albuterol and Breo.Pulmo nolgist to see06/24/20 22See the message from 06/24/2022 I have a nebulizer That smoke got my breathing real badPredni soneAlbute rol solution for her nebulizerE R if she is not any better Previous Maria R was following up with the pulmonolog ist, Dr. Steel. She is now on albuterol, Atrovent via Singulair and Breo.She also has a nebulizerS he will be referred to anew pulmonolog ist Body mass index 40+ - severely obese 260732226 Z68.41 Degenerati on of lumbar intervertebral disc 08779852 M51.36 Degenerati on of cervical intervertebral disc 83697272 M50.30 Benign hypertension 1072 5009 I10 Uncontroll ed, she is yet to take any of her blood pressure medication s today. [id number] MD Rehan Francis (Adult Med) [address] [place] [address] [phone] 0 09/23/2022 09:21:06 09/24/2022 09:40:05 Benign hypertension 45678625 I10 Uncontroll ed based on her ambulatory readings.S top HCTZStart Chlorthali Barbara does not take her blood pressure medication s when she is coming in for her visits, so i am only able to use her blood pressure log. Steatotic liver disease 468225935 K76.0 Type 2 bryn betes mellitus without complication 510178443 E11.9 Immunization advised 310 143280 Z71.9 Instabilit y of joint of right ankle 6456304108 323660 M25.033 [id number] MD Rehan Francis (Adult Med) [address] [place] [address] 04827-485 0 06/09/2023 09:24:01 06/10/2023 19:14:28 Type 2 diabetes mellitus without complication 944745665 E11.9 HBA1C 6.5%She has no contraindi cations to starting a GLP-1, she has no history of Thyroid cancer, side effects were discussed. Benign hypertension 1072 5009 I10 StableHer refill history suggests that she may have filled both HCTZ and Chlorthali done, she however confirms that the former was discontinu ed.She really needs to bring in her meds on her next visit OV 09/23/2022 Uncontroll ed based on her ambulatory readings.S top HCTZStart Chlorthali Barbara does not take her blood pressure medication s when she is coming in for her visits, so i am only able to use her blood pressure log. Steatotic liver disease 587771447 K76.0 Disorder o f lipid metabolism 540087649 E78.9 Her LDL is 185, she cannot tolerate statins, I will repeat her labs and consider Nexletol OV 09/21/2016 Her LDL remains suboptimal and unfortunat shae she can only tolerate Fenofibrat e and Zetia. She had cramps with statins, I will attempt a PA for a PCSK9 inhibitor. Serum tota l protein outside reference range 317859621 R79.89 Loss of se nse of smell 98053563 R43.0 Cirrhosis of liver 42344 007 K74.60 Screening for malignant neoplasm of breast 507909358 Z12.31 Discussed Tubular ad enomatous polyp of colon 492063304 D12.6 Colonoscop y 2022 Q 2 years Diastolic dysfunction 35 75177 I51.9 [id number] MD Rehan Francis (Adult Med) [address] [place] [address] 78153-680 0 07/18/2023 09:53:49 07/18/2023 11:33:30 Statin not tolerated 375335352 Z78.9 Disorder o f lipid metabolism 186225229 E78.9 Addendum 04/24/2024L abs 06/13/2023, LDL 247, TG, 155, LDL 159Unable to tolerate a statin and her LDL is still elevated despite compliance with Ezetimibe. I will add Nexletol. Labs 06/13/2023, LDL 247, TG, 155, LDL 159Unable to tolerate a statin and her LDL is still elevated despite compliance with Ezetimine. I will add Nexletol. OV 06/09/2023He r LDL is 185, she cannot tolerate statins, I will repeat her labs and consider Nexletol OV 09/21/2016 Her LDL remains suboptimal and unfortunat shae she can only tolerate Fenofibrat e and Zetia. She had cramps with statins, I will attempt a PA for a PCSK9 inhibitor. Body mass index 40+ - severely obese 519477104 Z68.41 Obesity 493918354 E66.9 Monoclonal gammopathy of uncertain significance 757162897 D47.2 Type 2 bryn betes mellitus without complication 969330668 E11.9 HBA1C 6.4% on 06/13/2023 OV 06/09/2023HB A1C 6.5%She has no contraindi cations to starting a GLP-1, she has no history of Thyroid cancer, side effects were discussed. Medication review done by doctor 557736138 Z76.89 [id number] Daly Servin MD [facility] (Adult Med) [address] [place] [address] 10395-669 0 04/24/2024 09:16:20 04/24/2024 10:02:33 Statin not tolerated 809041582 Z78.9 Disorder o f lipid metabolism 464841203 E78.9 Labs OV 07/18/2023L abs 06/13/2023, LDL 247, TG, 155, LDL 159Unable to tolerate a statin and her LDL is still elevated despite compliance with Ezetimibe. I will add Nexletol. OV 06/09/2023He r LDL is 185, she cannot tolerate statins, I will repeat her labs and consider Nexletol OV 09/21/2016 Her LDL remains suboptimal and unfortunat shae she can only tolerate Fenofibrat e and Zetia. She had cramps with statins, I will attempt a PA for a PCSK9 inhibitor. Type 2 bryn betes mellitus without complication 791195172 E11.9 Labs OV 07/18/2023H BA1C 6.4% on 06/13/2023 OV 06/09/2023HB A1C 6.5%She has no contraindi cations to starting a GLP-1, she has no history of Thyroid cancer, side effects were discussed. Medication review done by doctor 030076347 Z76.89 Pre-surger y evaluation 816797208 Z01.818 Low risk [id number] MD Rehan Francis (Adult Med) [address] [place] [address] 07/24/2024 09:09:42 07/25/2024 08:52:30 Screening for malignant neoplasm of breast 202732528 Z12.31 Discussed, she still wants a MMG Body mass index 40+ - severely obese 685839877 Z68.41 Obesity 685845156 E66.8 Overweight 303128610 E66 .3 Disorder o f lipid metabolism 447564021 E78.9 Continue ZetiaStart NexletolSh amanuel has statin intoleranc e and she is DM with a LDL of 147 OV 04/24/2024L abs OV 07/18/2023L abs 06/13/2023, LDL 247, TG, 155, LDL 159Unable to tolerate a statin and her LDL is still elevated despite compliance with Ezetimibe. I will add Nexletol. OV 06/09/2023He r LDL is 185, she cannot tolerate statins, I will repeat her labs and consider Nexletol OV 09/21/2016 Her LDL remains suboptimal and unfortunat shae she can only tolerate Fenofibrat e and Zetia. She had cramps with statins, I will attempt a PA for a PCSK9 inhibitor. Type 2 bryn betes mellitus without complication 557275607 E11.9 Increase Ozempic to 0.5 mg weeklyGI side effects were discussedS he has no history of Thyroid cancer OV 04/24/2024L abs OV 07/18/2023H BA1C 6.4% on 06/13/2023 OV 06/09/2023HB A1C 6.5%She has no contraindi cations to starting a GLP-1, she has no history of Thyroid cancer, side effects were discussed. Medication review done by doctor 453113599 Z76.89 Asthma 790403075 J45.90 9 J30.9 RF Albuterol OV 07/01/2022 tart Azithromyc inTessalon perlesCXRC omplete the course of steroidsCo ntinue Albuterol and Breo.Pulmo nologist to see06/24/20 22See the message from 06/24/2022 I have a nebulizer That smoke got my breathing real badPredni soneAlbute rol solution for her nebulizerE R if she is not any better Previous OVMeg was following up with the pulmonolog ist, Dr. Steel. She is now on albuterol, Atrovent via Singulair and Breo.She also has a nebulizerS he will be referred to anew pulmonolog ist Immunization advised 310 777428 Z71.9 Influenza vaccination declined 676059990 Z28.21 [id number] Daly Servin MD [facility] (Adult Med) [address] [place] [address] 53148-553 0 01/30/2025 09:22:09 01/31/2025 11:20:59 Body mass index 40+ - severely obese 442924592 Z68.41 Type 2 bryn betes mellitus without complication 894175174 E11.9 Labs OV 07/24/2024I ncrease Ozempic to 0.5 mg weeklyGI side effects were discussedS he has no history of Thyroid cancer OV 04/24/2024L abs OV 07/18/2023H BA1C 6.4% on 06/13/2023 OV 06/09/2023HB A1C 6.5%She has no contraindi cations to starting a GLP-1, she has no history of Thyroid cancer, side effects were discussed. Medication review done by doctor 660763226 Z76.89 Acute uppe r respiratory infection 01433867 J06.9 Intolerant of cold 91012 000 R68.89 Mass of upper limb 68969 5008 R22.31 Medication monitoring 39 5262939 Z51.81 Benign hypertension 1072 5009 I10 Uncontroll ed, it is unclear what she has been taking Health Concerns Section Related Observation LastModified by Organization Detai ls LastModified Time None Recorded Concern Status LastModified by Organization Details LastModified Time None Recorded Advance Directives Directive N: Payers Insurance Date Sequence Insurance Name Policy Number Policy Fiore Covered Member ID Fiore Member ID Guarantor Name 02/22/2025 1 [place] Macey D Pratt [id number] Macey Pratt 12/11/2024 [place] [facility] Macey D Pratt [id number] Macey Pratt 07/24/2024 [place] [facility] Macey D Pratt [id number] Macey Pratt 07/02/2024 [place] [facility] Macey D Pratt [id number] Macey Pratt 04/24/2024 1 [facility] PRIOR TO 05/07/2021 (MEDICAID REPLACEMENT - HMO) Macey Pratt [id number] Macey Pratt 04/24/2024 1 [place] Macey D Pratt [id number] Macey Pratt 04/24/2024 [place] [facility] Macey Pratt [id number] Macey Pratt 04/24/2024 2 [place] [facility] Macey Pratt [id number] Macey Pratt 04/24/2024 2 [place] [facility] Macey Pratt [id number] Macey Pratt 04/10/2025 2 [place] WHEN MED[place]ARE OR MEDICARE REPLACEMENT PRIMARY) Macey Pratt [id number] Macey Pratt 02/22/2025 [place] [facility] Macey D Pratt [id number] Macey Pratt Notes Date Note Type Note Provider Name and Address Organization Details Recorded Time 06/09/2023 text/html Diabetes F/URepo rted bypatient.Labs:last A1C result: 6.5 (11/17/2022) Context:normal range of home blood sugars (in the low 100s); seeing eye doctor regularly; checking feet regularly; taking aspirin daily; not missing doses of medications; no side effects from medications Associated Symptoms:no weight gain; no dizziness; no sweats; no headaches; no confusion; no increased thirst; no increased appetite; no increased urination; no blurred vision; no numbness of feet; no calluses on feet;weight loss (4 lbs) Just for a check up and the hospital sent me a script that it was time to take my breast examShe told me to ask you about taking shots to lose weight, it's for Diabetes and to lose weightHe said he didn't really see anything but small cataracts Ms Pratt returns, in the interim, she had an US which confirmed cirrhosis, a colonoscopy that confirmed T.A. (Q 10 years), TTEs, an annual eye exam (Cataracts) and labs. She did not respond to Trelegy and this was discontinued, apparently Ozempic or an equivalent was recommended for her DM and weight loss. Daly Servin MD Attn: Accounting[address] [place], [address], [facility] 06/09/2023 11:06:43 07/18/2023 text/html Diabetes F/URepo rted bypatient.Labs:last A1C result: 6.4 Context:normal range of home blood sugars (in the low 100s); seeing eye doctor regularly; checking feet regularly; taking aspirin daily; not missing doses of medications; no side effects from medications Associated Symptoms:no weight gain; no dizziness; no sweats; no headaches; no confusion; no increased thirst; no increased appetite; no increased urination; no blurred vision; no numbness of feet; no calluses on feet;weight loss (6 lbs) They would not pay for suleiman [facility] liver doctor, he told me to take Vitamin C and Vitamin E Ms Pratt apparently had an annual eye exam done and she was seen by the letterpress printing machinist. Daly Servin MD Attn: Accounting[address] [place], [address], [facility] 04/24/2024 11:39:02 04/24/2024 text/html Diabetes F/URepo rted bypatient.Review finger sticks:fastin-123 Labs:last A1C result: 6.4 Context:taking aspirin daily; not missing doses of medications; no side effects from medications Associated Symptoms:no weight gain; no dizziness; no sweats; no headaches; no confusion; no increased thirst; no increased appetite; no increased urination; no blurred vision; no numbness of feet; no calluses on feet;weight loss (3 lbs)Hypertension F/UReported bypatient.Associated Symptoms:no dizziness; no lightheadedness; no chest pain; no shortness of breath; no palpitations; no edema; no calf pain with exertion Lifestyle:regular exercise; limiting/avoiding salt Medications:taking medications as directed; no side effects from medication For my regular check upfor my eyes, cataracts No chest pain or SOBShe can walk up a flight of stairs with some difficulty Daly Servin MD Attn: Accounting[address] [facility], [place], [address], [facility] 04/24/2024 10:25:37 07/24/2024 text/html Diabetes F/URepo rted bypatient.Review finger sticks:fasting: Okay during eye surgery Labs:last A1C result: 6.4% Context:normal range of home blood sugars (in the low 100s); seeing eye doctor regularly; checking feet regularly Associated Symptoms:no weight gain; no weight loss; no dizziness; no sweats; no headaches; no confusion; no increased thirst; no increased appetite; no increased urination; no blurred vision; no numbness of feet; no calluses on feetObesityReported bypatient.Context:no inhaled steroids; no oral steroids Associated Symptoms:no depression; no chronic illness; no Prader-Willi Syndrome; no hypothyroidism Co-morbidities:overw eight/obese;hyperten kortney;elevated lipids Lifestyle changes:few constitutional symptoms related to diagnosis; no changes in living situation; motivated to continue lifestyle changes; losing weight; exercising more Medication Education:understand s potential side effects; understands administration; understands role of diet as primary therapy A regular check up, and a prescription for a breast exam, they said it was time for DecaWave machine that I had got, they said it wasn't working right Daly Servin MD Attn: Accounting,[address] [facility], [place], [address], [facility] 07/24/2024 19:58:51 01/30/2025 text/html Diabetes F/URepo rted bypatient.Labs:last A1C result: 6.2% Context:taking aspirin daily; not missing doses of medications; no side effects from medications Associated Symptoms:no weight loss; no dizziness; no sweats; no headaches; no confusion; no increased thirst; no increased appetite; no increased urination; no blurred vision; no numbness of feet; no calluses on feet;weight gain (2 lbs)Hypertension F/UReported bypatient.Associated Symptoms:no dizziness; no lightheadedness; no chest pain; no shortness of breath; no palpitations; no edema; no calf pain with exertion Lifestyle:regular exercise; limiting/avoiding salt Medications:taking medications as directed; no side effects from medication I forgot themI have a knot right hereI have a cold I can't get rid ofI stay cold all the time Ms Pratt is here without her medications, she has had symptoms for a URI for several weeks and her home COVID test was negative. She also noticed a swelling around her right wrist. Since her last visit, she has followed up with her neurologist (Alzheimer's) and Oncologist (MM) Daly Servin MD Attn: Accounting[address] [place], [address], [facility] 01/30/2025 18:36:46 OBGyn Episode Ob Episode Information Episode Created Date Number of Fetuses Patient Bloodtype Patient rh Status Prepregnancy Weight lbs Domestic Partner Domestic Partner Phone Father Name Customer Care Consultant Status 09/14/20 17 1 CLOSED Fetus Data First Name Last Name Admitted to NICU Weight (g) Sex Living Outcome Pediatric Complications Fetus ID Race Codes Race Delivery Type 3175.14 4 M Full Term [id number] Vaginal Bang Calculation Initial Bang Date Initial Exam Date Initial Exam Provider Initial Ultrasound Date Last Menstrual Period Date Ultra Sound Weeks Gestation 0 Eighteen To Twenty Week Bang Update Ultra Sound Date Fundal Height At Umbil Quickening Date Ultra Sound Latest Weeks Gestation Final Bang Confirmed By Final Bang Confirmed Date Final Bang Date Ultra Sound Latest Days Gestation 0 0 Menstrual History Last Menstrual Date Menses Monthly On Bcp Conception Prior Menses Frequency Hcg Plus Date Menarche Onset Age Delivery Information Delivery Date Delivery Type Labor Anesthesia Weeks Gestation Incision Type Labor Labor Length Hrs Delivered By Post Complications Tubal Sterilization Discharge Date Comments 3 None 40 false Discharge Information Feeding Method Contraceptive Method Maternal HG B and HCT Levels Ob Episode Information Episode Created Date Number of Fetuses Patient Bloodtype Patient rh Status Prepregnancy Weight lbs Domestic Partner Domestic Partner Phone Father Name Customer Care Consultant Status 09/14/20 17 1 CLOSED Fetus Data First Name Last Name Admitted to NICU Weight (g) Sex Living Outcome Pediatric Complications Fetus ID Race Codes Race Delivery Type 3203.26 [address] [address] Vaginal Bang Calculation Initial Bang Date Initial Exam Date Initial Exam Provider Initial Ultrasound Date Last Menstrual Period Date Ultra Sound Weeks Gestation 0 Eighteen To Twenty Week Bang Update Ultra Sound Date Fundal Height At Umbil Quickening Date Ultra Sound Latest Weeks Gestation Final Bang Confirmed By Final Bang Confirmed Date Final Bang Date Ultra Sound Latest Days Gestation 0 0 Menstrual History Last Menstrual Date Menses Monthly On Bcp Conception Prior Menses Frequency Hcg Plus Date Menarche Onset Age Delivery Information Delivery Date Delivery Type Labor Anesthesia Weeks Gestation Incision Type Labor Labor Length Hrs Delivered By Post Complications Tubal Sterilization Discharge Date Comments 1 None 40 false Baby was born in [place], [place] Discharge Information Feeding Method Contraceptive Method Maternal HG B and HCT Levels
--- OUTSIDE RECORDS SUMMARY | 2025-05-29 06:52 | XMS_ITS | Clinical Summary ---
Author Organization [facility] Address [address] [facility], [facility] [address] [place] [address] Phone Care Team Providers Care Graphite Grinder Name Role Phone Daly Servin MD Primary Care Provider Thierry Moreno Unavailable Allergies Active Allergy Reactions Criticality Noted Date Comments Egg-Derived Products Hives 04/20/2019 Latex Hives 04/20/2019 Medications fluticasone-ross anterol (BREO ELLIPTA) 200-25 MCG/INH AEROSOL POWDER, BREATH ACTIVATED INL 1 PUFF PO AT THE SAME TIME Q DAY. RM AFTER U 8 Active Cholecalciferol (D3-50) 98387 UNIT Capsule Take 50,000 Units by mouth. Active cloNIDine (CATAPRES) 0.1 MG Tablet Take 0.1 mg by mouth. Active ezetimibe (ZETIA) 10 MG Tablet Take 10 mg by mouth. 7 Active hydroCHLOROthia zide 25 MG Tablet Take 25 mg by mouth. Active ipratropium-alb uterol (DUO-NEB) 0.5-2.5 (3) MG/3ML Solution INHALE 1 VIAL VIA NEBULIZER QID 7 Active memantine (NAMENDA) 10 MG Tablet Take half tablet po bid for one week, then one tablet po bid 9 Active metFORMIN (GLUCOPHAGE) 850 MG Tablet Take 850 mg by mouth. Active metoprolol Succinate (TOPROL-XL) 100 MG TABLET SR 24 HR Take 100 mg by mouth. Active montelukast (SINGULAIR) 10 MG Tablet Take 10 mg by mouth. Active Aspirin 81 MG Tablet Take 81 mg by mouth daily. Active omeprazole (PriLOSEC) 20 MG CAPSULE DELAYED RELEASE Take 1 Cap by mouth daily. 90 Cap 0 Active Active Problems Problem Noted Date Diagnosed Date Dysphagia 04/20/2019 Family History Medical History Relation Name Comments Ovarian Cancer Maternal Grandmother Anemia Mother Stroke Mother Relation Name Status Comments Maternal Grandmother Mother Social History Tobacco Use Types Packs/Day Years Used Date Smoking Tobacco: Never Smokeless Tobacco: Never Alcohol Use Standard Drinks/Week Comments Never 0 (1 standard drink = 0.6 oz pur e alcohol) AUDIT-C Answer Date Recorded Frequency of Alcohol Consumption Never 04/20/2019 Average Number of Drinks Not on file 019 Frequency of Binge Drinking Not on file 04/07 Comments No Sex and Gender Information Value Date Recorded Sex Assigned at Not on file Legal Sex Female 8:59 PM CDT Gender Identity Not on file Sexual Orientation Not on file Last Filed Vital Signs Vital Sign Reading Time Taken Comments Blood Pressure 148/82 07/11/2019 9:36 AM CDT Pulse 68 07/11/2019 9:36 AM CDT Temperature 36.6 C (97.9 F) 04/20/2019 9:04 AM CDT Respiratory Rate 16 04/20/2019 9:04 AM CDT Oxygen Saturation 97% 07/11/2019 9:36 AM CDT Inhaled Oxygen Concentration - - Weight 109.7 kg (241 lb 12.8 oz) 07/11/2019 9:36 AM CDT Height 162.6 cm (5' 4) 04/20/2019 9:04 AM CDT Body Mass Index 41.5 04/20/2019 9:04 AM CDT Plan of Treatment Health Maintenance Due Date Last Done Comments Hepatitis C Virus (HCV) Screening 1950 TdaP Immunization 1950 Cologuard 1994 Immunochemical Fecal Occult Blood 1994 Zoster Immunization (2 of 3) 03/28/2016 02/01/2016 Pneumococcal Immunization (50+ years) (3 of 3 - PCV20 or PCV21) 12/08/2022 12/08/2017, 02/01/2016, 11/07/2011 Respiratory Syncytial Virus (RSV) Immunization (Adult) (1 - 1-dose 75+ series) 2024 SARS-COV-2 Immunization ( season) 2024 03/30/2022, 10/03/2021, 09/02/2021, Additional history exists Influenza Immunization (#1) 2025 Colonoscopy 06/07/2029 06/07/2019 Colorectal Cancer Screening 06/07/2029 Pneumococcal Immunization Combined Discontinued 12/08/2017, 02/01/2016, 11/07/2011 Hepatitis B Immunization Aged Out No longer eligible based on patient's age to complete this topic Human Papillomavirus (HPV) Immunization Aged Out No longer eligible based on patient's age to complete this topic Meningococcal Immunization (ACWY) Aged Out No longer eligible based on patient's age to complete this topic Rotavirus Immunization Aged Out No lo nger eligible based on patient's age to complete this topic Procedures Procedure Name Priority Date/Time Associated Diagnosis Comments COLONOSCOPY Routine 06/07/2019 from Last 3 Months or Most Recently Relevant to Health Maintenance Results * COLONOSCOPY (06/07/2019) Pierre Chung DO PROCEDURE/MINOR SURGICAL ORDERA BLES Final Result from Last 3 Months or Most Recently Relevant to Health Maintenance Insurance MEDICARE MEDICAID [place] Care Teams Graphite Grinder Relationship Specialty Start Date End Date Daly Servin MD [address] [place] [address] PCP - General Internal Medicine 04/20/19 Thierry Moreno [id number] [place] [address] Broker In Charge 05/02/19
--- OUTSIDE RECORDS SUMMARY | 2025-05-29 06:52 | XMS_ITS | Clinical Summary ---
Author Organization [facility] Address [address] [place] [address] Care Team Providers Care High Lift Mule Operator Name Role Phone Unavailable Primary Care Provider Unavailabl e Source Comments [facility],non-owned Affiliates and Associated Physician Practices is amultiple site organization consisting of ambulatory clinics and hospital sitesin [place], [place], [place] and [place]. This disclosure is being madepursuant to the Care Everywhere program and may not contain all information available regarding this patient. Last updated 18.[facility] Social History Tobacco Use Types Packs/Day Years Used Date Smoking Tobacco: Never Assessed Comments Unknown Sex and Gender Information Value Date Recorded Sex Assigned at Not on file Legal Sex Female 9:36 AM CDT Gender Identity Not on file Sexual Orientation Not on file Plan of Treatment Health Maintenance Due Date Last Done Comments BONE DENSITY TESTING 1950 COLOGUARD (AGES 45-75) - COLON CA SCREENING 1949 COLON MONITORING 1949 COLONOSCOPY - COLON CA SCREENING 1949 CT COLONOGRAPHY - COLON CA SCREENING 1950 Colorectal Cancer Screening 1950 FIT - COLON CA SCREENING 1949 FLEX SIG - COLON CA SCREENING 1949 LIPID TESTING 1950 MAMMOGRAM 1950 MEDICARE AWV 12 MONTHS 1950 HEPATITIS C SCREENING 06/23/1967 DTAP/TDAP/TD VACCINES (1 - Tdap) 1968 PNEUMOCOCCAL VACCINE 50+ (1 of 1 - PCV) 1999 ZOSTER VACCINE (1 of 2) 1999 Respiratory Syncytial Virus (RSV) Vaccine Pt: or over 60 yrs (1 - 1-dose 75+ series) 2024 COVID-19 VACCINE (2023-25 season) 2024 09/07/2022, 03/30/2022, 10/03/2021, Additional history exists DEPRESSION SCREENING 11/07/2024 INFLUENZA VACCINE (#1) 2025 HEPATITIS B VACCINE Aged Out No longe r eligible based on patient's age to complete this topic HIB VACCINE Aged Out No longer eligi ble based on patient's age to complete this topic HPV VACCINE Aged Out No longer eligi ble based on patient's age to complete this topic MENINGOCOCCAL (Group B) VACCINE SHARED DECISION-MAKING Aged Out No longer eligible based on patient's age to complete this topic MENINGOCOCCAL GROUPS A/C/Y/W VACCINE Aged Out No longer eligible based on patient's age to complete this topic Insurance MEDICARE MEDICAID - OUT OF [facility] MEDICARE MEDICAID - [place]
--- OUTSIDE RECORDS SUMMARY | 2025-05-29 06:52 | XMS_ITS ---
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 Overview (09/11/2019): Added automatically from request for surgery [id number] Calculus of gallbladder with out cholecystitis without obstruction 09/11/2019 Overview (09/11/2019): Added automatically from request for surgery [id number] Morbid obesity with BMI of 40.0-44.9, adult 06/2019 Endometrial cancer 01/09/2018 Type 2 diabetes mellitus 11/21/2017 Osteoporosis 11/21/2017 Gastroesophageal reflux disease 11/21/2017 Hypertension 11/03/2017 Hyperlipidemia 11/03/2017 Asthma 11/03/2017 Arthritis 11/03/2017 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 Past Treatment and Therapy Plans No past plan information found. Lifetime Dose Tracking * Chemical Lifetime Dose Automatic Entry Manual Entr y Fluoro Time 2.5 minutes 2.5 minutes 0 minutes
--- OUTSIDE RECORDS SUMMARY | 2025-05-29 06:52 | XMS_ITS | Encounter Summary ---
Author Organization [facility] Address [address] [place] [address] Phone Care Team Providers Care Cotton Buyer Name Role Phone Daly Servin MD Primary Care Provider Thierry Moreno Unavailable Reason for Visit * Reason Comments Medication Refill Encounter Details Date Type Department Care Team (Late st Contact Info) Description 05/23/2021 Refill [facility] [address] [place] [address] Gerry Lisa Krista, PAC [address] [place], [place] [id number] Medication Refill Social History Tobacco Use Types Packs/Day Years [...] on file documented as of this encounter Miscellaneous Notes * Telephone Encounter - Jose Sharpe CMA - 05/25/2021 10:35 AM CDT Patient was notified on 10/15/2020 that all future refills need to go to primary doctor. Patient verbalized understanding documented in this encounter Plan of Treatment Not on file documented as of this encounter Visit Diagnoses Not on filedocumented in this encounter Care Teams Cotton Buyer Relationship Specialty Start Date End Date Daly Servin MD [address] [place] [address] PCP - General Internal Medicine 04/20/19 Thierry Moreno [id number] [place] [address] Drain Tile Press Operator 05/02/19 documented as of this encounter
[2025-05-29 07:06] LABS: Hematocrit 38.3 % (37.0-47.0); Hemoglobin 12.6 g/dL (12.0-15.0); Immature Granulocyte Percent A 0.6 % (0-0.5); Lymphocytes Absolute Auto 2.47 K/mm3 (0.9-3.2); Mean Corpuscular HGB Conc 32.9 g/dl (32-36); Mean Corpuscular Hemoglobin 30.7 pg (26-34); Mean Corpuscular Volume 93.4 fl (80-100); Nucleated Red Blood Cells Absolute Auto 0.000 K/mm3 (0.0-0.012); Nucleated Red Blood Cells Perc 0.0 % (0.0-0.2); Platelet Count Result 227 k/mm3 (150-375); Red Blood Count 4.10 M/mm3 (4.2-5.4); White Blood Count 6.9 K/mm3 (4.5-10.0)
--- NOTE | 2025-05-29 07:11 | ED.CHESTPAIN ---
HPI - Chest Pain General Chief Complaint: Chest Pain Stated Complaint: Chest pain Time Seen by Provider: 05/29/25 07:00 Source: patient Mode of arrival: ambulatory Limitations: no limitations History of Present Illness HPI narrative: 74 years old female came to the ED complaining of left chest heaviness and tightness woke her up from sleep at 12 midnight. Steady, this morning vomited twice. Patient denies aggravating or relieving factors. She denies any fever, chills, diarrhea, back pain or trouble breathing. History of diabetes hypertension hyperlipidemia, asthma patient currently on aspirin. Patient does not smoke or drink or use drugs. Her pain at midnight was 10 currently 10/16 Related Data Home Medications ?Medication ?Instructions ?Recorded ?Confirmed ?Last Taken ?Type Black Elderberry 4,000 mg PO DAILY 03/06/20 10/10/23 Unknown History cod liver oil 2 cap PO HS 03/06/20 10/10/23 Unknown History cyanocobalamin (vitamin B-12) 2,500 mcg sublingual DAILY 03/06/20 10/10/23 10/10/23 History 2,500 mcg sublingual tablet (Vitamin B-12) aspirin 81 mg tablet,delayed 81 mg PO DAILY 04/28/20 10/10/23 09/27/23 History release (Adult Aspirin Regimen) ergocalciferol (vitamin D2) 1,250 1,250 mcg PO MONTHLY 04/28/20 10/10/23 09/30/23 History mcg (50,000 unit) capsule (Vitamin D2) fenofibrate 160 mg tablet 160 mg PO DAILY 04/28/20 10/10/23 Unknown History hydrochlorothiazide 25 mg tablet 25 mg PO DAILY 04/28/20 10/10/23 10/09/23 History metformin 850 mg tablet 850 mg PO QACDINNER 04/28/20 10/10/23 Unknown History montelukast 10 mg tablet 10 mg PO HS 04/28/20 10/10/23 10/09/23 History omeprazole 20 mg capsule,delayed 20 mg PO DAILY 04/28/20 10/10/23 Unknown History release ezetimibe 10 mg tablet 10 mg PO DAILY 05/01/20 10/10/23 10/10/23 History memantine 10 mg tablet 10 mg PO DAILY 05/01/20 10/10/23 10/10/23 History metoprolol succinate 200 mg 200 mg PO DAILY 05/01/20 10/10/23 10/10/23 History tablet,extended release 24 hr fluticasone furoate 100 1 inh inhalation DAILY 03/28/23 10/10/23 10/10/23 History mcg-vilanterol 25 mcg/dose inhalation powder (Breo Ellipta) ascorbate calcium (vitamin C) 500 500 mg PO DAILY 08/23/23 10/10/23 Unknown History mg tablet vitamin E (dl, acetate) 45 mg (100 45 mg PO DAILY 08/23/23 10/10/23 Unknown History unit) capsule acetaminophen 325 mg tablet 650 mg PO Q6H PRN Pain (Scale 10/10/23 10/10/23 Unknown History Score 1-3) albuterol sulfate 90 mcg/actuation 2 puff inhalation Q4-6H PRN 10/10/23 10/11/23 10/11/23 History aerosol inhaler (Ventolin HFA) Wheezing semaglutide 0.25 mg or 0.5 mg (2 0.25 mg subcut WEEKLY 10/10/23 10/10/23 10/07/23 History mg/3 mL) subcutaneous pen injector (OzempRoboEd) Allergies Allergy/AdvReac Type Severity Reaction Status Date / Time egg Allergy Unknown Rash Verified 05/29/25 07:55 latex Allergy Unknown Hives Verified 05/29/25 07:55 adhesive Allergy Rash Verified 05/29/25 07:55 chicken derived Allergy Hives Verified 05/29/25 07:55 atorvastatin AdvReac Unknown Cramping Verified 05/29/25 07:55 of the Muscles rosuvastatin AdvReac Unknown Cramping Verified 05/29/25 07:55 of the Muscles Review of Systems Review of Systems: All systems reviewed & are unremarkable except as noted in HPI and below PMFSH Past Medical History Medical History Shortness of Breath Type 2 diabetes mellitus GERD (gastroesophageal reflux disease) Essential hypertension Asthma Family History Family History Mother Cerebrovascular accident, Onset Age: 70 Family history of rheumatoid arthritis, Onset Age: 70 Grandparent Family history of malignant neoplasm of ovary, Onset Age: 82 Father Patient's father is in good health Other Diabetes mellitus Hypertension Social History Social History Smoking packs per day: 0 Smoking cigarettes per day: 0.0 Years smoked: 0 Smoking pack-years: 0.00 Smoking status: Never smoker Second hand tobacco smoke exposure: No Alcohol intake: never Substance use type: does not use Living arrangements: alone Exam Narrative: General appearance: Well-developed, well-nourished Skin: Normal color Head: Normocephalic, nontraumatic Eyes: Clear conjunctiva ENT: Oropharynx normal, ears normal, nose normal Neck: Supple, nontender Chest and respiratory: Airway patent, no respiratory distress, no accessory muscle use, diffuse tenderness left chest, no bruises or rash Heart: Regular rate/rhythm Abdomen: Epigastric tenderness, left abdominal tenderness, no rebound, quite bowel sounds Vascular: Normal peripheral pulses, normal capillary refill. Musculoskeletal: Normal range of motion, nontender back Neurologic: Alert and oriented ?3, PUBLIC HEALTH ADMINISTRATOR is normal as tested, no gross motor deficit Course Consultations Consultation #1: DR GALAN THE PATIENT STILL HAVING PAIN THE 2ND TROPONIN IS ELEVATED Consultation #2: DR WALDRON NITROGLYCERIN DRIP ICU Date: 05/29/25 Consultation #3: DR VARGHESE Date: 05/29/25 Time: 15:05 Vital Signs Vital signs: Vital Signs Temperature 36.6 C 05/29/25 06:53 Pulse Rate 93 05/29/25 06:53 Respiratory Rate 26 H 05/29/25 06:53 Blood Pressure 165/94 H 05/29/25 06:53 Pulse Oximetry 100 05/29/25 06:53 Oxygen Delivery Room Air 05/29/25 06:53 Temperature 36.6 C 05/29/25 06:53 Pulse Rate 76 05/29/25 13:31 Respiratory Rate 18 05/29/25 13:31 Blood Pressure 153/80 H 05/29/25 12:32 Pulse Oximetry 99 05/29/25 13:31 Oxygen Delivery Room Air 05/29/25 07:03 MDM - Chest Pain MDM Narrative Medical decision making narrative: PATIENT CAME WITH CHEST PAIN AND ABDOMINAL PAIN VITAL SIGNS SHOWING BLOOD PRESSURE 165/94, RESPIRATION 26 OTHERWISE WITHIN NORMAL LIMIT PHYSICAL EXAMINATION SHOWING DIFFUSE TENDERNESS LEFT CHEST AND LEFT ABDOMEN WITH LIGHT PALPATION DIFFERENTIAL DIAGNOSIS INCLUDE DISSECTION, PULMONARY EMBOLISM, CHOLECYSTITIS, DIVERTICULITIS, PANCREATITIS, CORONARY ARTERY DISEASE, CONSTIPATION, URINARY TRACT INFECTION, DEHYDRATION, ELECTROLYTE IMBALANCE, PERICARDITIS BLOOD WORKUP TODAY INCLUDES CBC, CMP, LIPASE, PRO BMP, TROPONIN SHOWED POTASSIUM 3.2, LACTIC ACID 2.4, OTHERWISE WITHIN NORMAL LIMIT URINALYSIS SHOWED EVIDENCE OF INFECTION CT ABDOMEN AND PELVIS WITH IV CONTRAST SHOWED NO SIGNIFICANT ABNORMALITIES DIAGNOSIS CHEST PAIN, N STEMI URINARY TRACT INFECTION ADMIT TO HOSPITALIST DR. GALAN CAME TO THE EMERGENCY ROOM, EVALUATED THE PATIENT. Differential Diagnosis Differential diagnosis: Likely other ( ABOVE) Medical Records Data Attestation: I reviewed the patient's medical records. Lab Data Attestation: I reviewed the patient's lab results. 05/29/25 14:15 05/29/25 07:00 Labs: Lab Results 05/29/25 05/29/25 05/29/25 Range/Units 07:00 08:48 09:31 WBC 6.9 (4.5-10.0) K/mm3 RBC 4.10 L (4.2-5.4) M/mm3 Hgb 12.6 (12.0-15.0) g/dL Hct 38.3 (37.0-47.0) % MCV 93.4 (80-100) fl MCH 30.7 (26-34) pg MCHC 32.9 (32-36) g/dl RDW 13.3 (11.5-14.5) % Plt Count 227 (150-375) k/mm3 MPV 9.4 (7.4-10.4) fl Immature Gran % (Auto) 0.6 H (0-0.5) % Neut % (Auto) 51.4 (45.5-73.1) % Lymph % (Auto) 35.7 (18.3-44.2) % [place] % (Auto) 6.8 (2.6-8.5) % Eos % (Auto) 5.2 H (0-4.4) % Baso % (Auto) 0.3 (0.2-1.2) % Lymph # (Auto) 2.47 (0.9-3.2) K/mm3 [place] # (Auto) 0.5 (0.1-0.6) K/mm3 Eos # (Auto) 0.4 H (0-0.3) K/mm3 Baso # (Auto) 0.0 (0.0-0.1) K/mm3 Abs Immat Gran (auto) 0.04 H (0.00-0.031) K/mm3 Absolute Neuts (auto) 3.6 (1.3-6.7) K/mm3 Absolute Nucleated RBC 0.000 (0.0-0.012) K/mm3 Nucleated RBC % 0.0 (0.0-0.2) % PT 14.0 (11.1-14.7) Seconds INR 1.1 APTT 25.2 (22.3-36.8) Seconds Sodium 137 (137-145) mmol/L Potassium 3.2 L (3.4-5.0) mmol/L Chloride 103 (98-107) mmol/L Carbon Dioxide 26 (22-30) mmol/L Anion Gap 8 (4-12) mmol/L BUN 8 D (7-17) mg/dL Creatinine 0.96 (0.7-1.0) mg/dL Estim Creat Clear Calc 53 ml/min Estimated GFR 57 L (59 - ) Glucose 126 H (65-110) mg/dL Lactic Acid 2.4 H (0.7-2.0) mmol/L Calcium 9.1 (8.4-10.2) mg/dL Total Bilirubin 0.7 (0.2-1.3) mg/dL AST 33 (14-36) U/L ALT 19 (6-35) U/L Alkaline Phosphatase 73 (38-126) U/L Troponin I < 0.012 (0.000-0.034) ng/mL NT-Pro-B Natriuret Pep 43 (19.9-100) pg/mL Total Protein 9.6 H (6.3-8.2) g/dL Albumin 4.1 (3.5-5.1) g/dL Lipase 81 (23-300) U/L Urine Color Yellow (Yellow) Urine Appearance Clear (Clear) Urine pH 8.5 (5.0-9.0) Ur Specific [place] > 1.045 H (1.001-1.035) Urine Protein Trace (Negative) mg/dL Urine Glucose (UA) Negative (Negative) mg/dL Urine Ketones Negative (Negative) mg/dL Ur Blood (Man) Negative (Negative) Urine Nitrate Negative (Negative) Urine Bilirubin Negative (Negative) Urine Urobilinogen 1.0 (<2.0) mg/dL Leukocyte Esterase Rfl 2+ H (Negative) LEXII/UL Urine RBC 0-2 (0-2) /hpf Urine WBC 51-100 H (0-3) /hpf Ur Squamous Epith Cells None seen (Few) /hpf Urine Bacteria None seen /hpf Urine Casts 0-2 05/29/25 05/29/25 05/29/25 Range/Units 10:37 11:25 12:54 WBC (4.5-10.0) K/mm3 RBC (4.2-5.4) M/mm3 Hgb (12.0-15.0) g/dL Hct (37.0-47.0) % MCV (80-100) fl MCH (26-34) pg MCHC (32-36) g/dl RDW (11.5-14.5) % Plt Count (150-375) k/mm3 MPV (7.4-10.4) fl Immature Gran % (Auto) (0-0.5) % Neut % (Auto) (45.5-73.1) % Lymph % (Auto) (18.3-44.2) % [place] % (Auto) (2.6-8.5) % Eos % (Auto) (0-4.4) % Baso % (Auto) (0.2-1.2) % Lymph # (Auto) (0.9-3.2) K/mm3 [place] # (Auto) (0.1-0.6) K/mm3 Eos # (Auto) (0-0.3) K/mm3 Baso # (Auto) (0.0-0.1) K/mm3 Abs Immat Gran (auto) (0.00-0.031) K/mm3 Absolute Neuts (auto) (1.3-6.7) K/mm3 Absolute Nucleated RBC (0.0-0.012) K/mm3 Nucleated RBC % (0.0-0.2) % PT (11.1-14.7) Seconds INR APTT (22.3-36.8) Seconds Sodium (137-145) mmol/L Potassium (3.4-5.0) mmol/L Chloride (98-107) mmol/L Carbon Dioxide (22-30) mmol/L Anion Gap (4-12) mmol/L BUN (7-17) mg/dL Creatinine (0.7-1.0) mg/dL Estim Creat Clear Calc ml/min Estimated GFR (59 - ) Glucose (65-110) mg/dL Lactic Acid 1.0 (0.7-2.0) mmol/L Calcium (8.4-10.2) mg/dL Total Bilirubin (0.2-1.3) mg/dL AST (14-36) U/L ALT (6-35) U/L Alkaline Phosphatase (38-126) U/L Troponin I 0.544 H* D 1.470 H* D (0.000-0.034) ng/mL NT-Pro-B Natriuret Pep (19.9-100) pg/mL Total Protein (6.3-8.2) g/dL Albumin (3.5-5.1) g/dL Lipase (23-300) U/L Urine Color (Yellow) Urine Appearance (Clear) Urine pH (5.0-9.0) Ur Specific [place] (1.001-1.035) Urine Protein (Negative) mg/dL Urine Glucose (UA) (Negative) mg/dL Urine Ketones (Negative) mg/dL Ur Blood (Man) (Negative) Urine Nitrate (Negative) Urine Bilirubin (Negative) Urine Urobilinogen (<2.0) mg/dL Leukocyte Esterase Rfl (Negative) LEXII/UL Urine RBC (0-2) /hpf Urine WBC (0-3) /hpf Ur Squamous Epith Cells (Few) /hpf Urine Bacteria /hpf Urine Casts 05/29/ Range/Units 14:15 WBC 5.8 (4.5-10.0) K/mm3 RBC 3.91 L (4.2-5.4) M/mm3 Hgb 12.0 (12.0-15.0) g/dL Hct 36.4 L (37.0-47.0) % MCV 93.1 (80-100) fl MCH 30.7 (26-34) pg MCHC 33.0 (32-36) g/dl RDW 13.3 (11.5-14.5) % Plt Count 212 (150-375) k/mm3 MPV 9.7 (7.4-10.4) fl Immature Gran % (Auto) 0.5 (0-0.5) % Neut % (Auto) 70.5 (45.5-73.1) % Lymph % (Auto) 20.8 (18.3-44.2) % [place] % (Auto) 6.7 (2.6-8.5) % Eos % (Auto) 1.2 (0-4.4) % Baso % (Auto) 0.3 (0.2-1.2) % Lymph # (Auto) 1.20 (0.9-3.2) K/mm3 [place] # (Auto) 0.4 (0.1-0.6) K/mm3 Eos # (Auto) 0.1 (0-0.3) K/mm3 Baso # (Auto) 0.0 (0.0-0.1) K/mm3 Abs Immat Gran (auto) 0.03 (0.00-0.031) K/mm3 Absolute Neuts (auto) 4.1 (1.3-6.7) K/mm3 Absolute Nucleated RBC 0.000 (0.0-0.012) K/mm3 Nucleated RBC % 0.0 (0.0-0.2) % PT 14.3 (11.1-14.7) Seconds INR 1.1 APTT 30.9 (22.3-36.8) Seconds Sodium (137-145) mmol/L Potassium (3.4-5.0) mmol/L Chloride (98-107) mmol/L Carbon Dioxide (22-30) mmol/L Anion Gap (4-12) mmol/L BUN (7-17) mg/dL Creatinine (0.7-1.0) mg/dL Estim Creat Clear Calc ml/min Estimated GFR (59 - ) Glucose (65-110) mg/dL Lactic Acid (0.7-2.0) mmol/L Calcium (8.4-10.2) mg/dL Total Bilirubin (0.2-1.3) mg/dL AST (14-36) U/L ALT (6-35) U/L Alkaline Phosphatase (38-126) U/L Troponin I (0.000-0.034) ng/mL NT-Pro-B Natriuret Pep (19.9-100) pg/mL Total Protein (6.3-8.2) g/dL Albumin (3.5-5.1) g/dL Lipase (23-300) U/L Urine Color (Yellow) Urine Appearance (Clear) Urine pH (5.0-9.0) Ur Specific [place] (1.001-1.035) Urine Protein (Negative) mg/dL Urine Glucose (UA) (Negative) mg/dL Urine Ketones (Negative) mg/dL Ur Blood (Man) (Negative) Urine Nitrate (Negative) Urine Bilirubin (Negative) Urine Urobilinogen (<2.0) mg/dL Leukocyte Esterase Rfl (Negative) LEXII/UL Urine RBC (0-2) /hpf Urine WBC (0-3) /hpf Ur Squamous Epith Cells (Few) /hpf Urine Bacteria /hpf Urine Casts Imaging Data Radiologist's impression: Impressions Chest X-Ray 05/29/25 07:40 IMPRESSION: 1: NO ACUTE CARDIOPULMONARY DISEASE. Abdomen/Pelvis CT 05/29/25 08:12 IMPRESSION: 1. No acute abdominal abnormality. 2: Cirrhosis of the liver with fatty infiltration. 3: Status post cholecystectomy with expected prominence of the bile ducts. Critical Care Time Critical Care Time Critical Care Time: Yes Total Critical Care Time: 30 Discharge Plan Discharge Clinical Impression: Chest pain, Urinary tract infection, Acute hypokalemia Patient Disposition: Still a Patient Condition: Guarded Prognosis
[2025-05-29] MEDS: ASPIRIN 81 MG CHEWABLE TABLET 324 MG PO (07:13)
[2025-05-29 07:17] LABS: INR 1.1; Partial Thromboplastin Time 25.2 Seconds (22.3-36.8); Prothrombin Time 14.0 Seconds (11.1-14.7)
[2025-05-29 07:26] LABS: Alanine Aminotransferase 19 U/L (6-35); Albumin Level 4.1 g/dL (3.5-5.1); Alkaline Phosphatase 73 U/L (38-126); Anion Gap 8 mmol/L (4-12); Aspartate Amino Transferase 33 U/L (14-36); Bilirubin,Total 0.7 mg/dL (0.2-1.3); Blood Urea Nitrogen 8 mg/dL (7-17); Calcium 9.1 mg/dL (8.4-10.2); Carbon Dioxide 26 mmol/L (22-30); Chloride 103 mmol/L (98-107); Estimated CRCL calculation 53 ml/min; Estimated Glomerular Filt Rate 57; Glucose 126 mg/dL (65-110); Lipase 81 U/L (23-300); Potassium 3.2 mmol/L (3.4-5.0); Sodium 137 mmol/L (137-145); Total Protein 9.6 g/dL (6.3-8.2)
[2025-05-29 07:36] LABS: Troponin I < 0.012 ng/mL (0.000-0.034)
[2025-05-29 07:47] LABS: NT Pro B Type Natriuretic Pept 43 pg/mL (19.9-100)
--- OUTSIDE RECORDS SUMMARY | 2025-05-29 08:04 | XMS_ITS | Clinical Summary ---
Author Organization [facility] Address [address] [place] [address] Care Team Providers Care Material Checker Name Role Phone Unavailable Primary Care Provider Unavailabl e Source Comments [facility],non-owned Affiliates and Associated Physician Practices is amultiple site organization consisting of ambulatory clinics and hospital sitesin [place], [place], [place] and [place]. This disclosure is being madepursuant to the Care Everywhere program and may not contain all information available regarding this patient. Last updated 18.[facility] Social History Tobacco Use Types Packs/Day Years [...] topic Insurance MEDICARE MEDICAID - OUT OF [facility] MEDICARE MEDICAID - [place]
--- OUTSIDE RECORDS SUMMARY | 2025-05-29 08:04 | XMS_ITS | Encounter Summary ---
Author Organization [facility] Address [address] [place] [address] Care Team Providers Care Janitor Helper Name Role Phone Unavailable Primary Care Provider Unavailabl e Encounter Details Date Type Department Care Team (Late st Contact Info) Description 10/12/2023 Lab Requisition [facility] - Pathology Lab [address] [place] [id number] Joe Villalobos MD [address] [facility] [address] [place] [address] Illness, unspecified Social History Tobacco Use [...] MARROW BIOPSY (STL) Routine 10/11/2023 9:25 AM FUEL OIL TRUCK DRIVER Illness, unspecified documented in this encounter Results * BONE MARROW BIOPSY (STL) (10/11/2023 9:25 AM FUEL OIL TRUCK DRIVER) Case Report Bone Marrow Patholog y Report Case: [id number] Authorizing Provider: Mo Villalobos MD Collected: 10/11/2023 09:25 AM Ordering Location: [facility] Received: 10/12/2023 01:42 PM Pathologist: Brigette Ring MD Specimens: A) - Bone Marrow Clot B) - Bone Marrow Core 10/17/2023 1:38 PM FUEL OIL TRUCK DRIVER [facility] Final Diagnosis Bone marrow, core biopsy and aspirate: - Plasma cell dyscrasia (up to 20% clonal plasma cells) involving a normocellular marrow (30-40% cellular), see comment - Adequate iron stores - No significant reticulin fibrosis 10/17/2023 1:38 PM [facility] PATH[facility]Y LAB at [address] FUEL OIL TRUCK DRIVER AP Comment The bone marrow is normocellular for the patient's age and shows involvement by a 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 Please correlate with laboratory data and clinical information for distinction between smoldering myeloma and multiple myeloma. 10/17/2023 1:38 PM [facility] Peripheral Smear Description Not provided 10/17/2023 1:38 PM [facility] Bone Marrow Aspirate Differential count [...] stain): no ring sideroblasts. 10/17/2023 1:38 PM [facility] Bone Marrow Core Biopsy and [...] similar to core biopsy. 10/17/2023 1:38 PM [facility] Flow Cytometry Summary Flow identifies 5% clonal plasma cells with lambda light chain restriction which express CD138, CD56; a subset express CD38 and CD19. ([id number]). 10/17/2023 1:38 PM [facility] Clinical History Plasma cell disorder 10/17/2023 1:38 PM [facility] Materials Received Received are 20 slide(s) and 3 blocks labeled [id number] along with a copy of the outside pathology report. [place] [address] . All original materials are returned to the referring institution, along with a copy of our final report. 10/17/2023 1:38 PM [facility] Microscopic Description Stains are performed on the core biopsy and clot section with appropriate controls and show the following: Core: CD138: 15-20% of cells are positive Reticulin: No significant increase in reticulin fibrosis. Iron: Adequate to mildly decreased iron stores Clot: CD138:15-20% of cels are positive Iron: Adequate 10/17/2023 1:38 PM [facility] Pathologist Location at [facility] 10/17/2023 1:38 PM [facility] Disclaimer The performance characteristics of all immunohistochemical and indirect immunofluorescence stains (if any) cited in this report were determined by the Histopathology Laboratory of [facility]. Some of these tests were developed by [...] the attending (teaching) pathologist. 10/17/2023 1:38 PM [facility] Addendum 1 In situ hybridizatio n for kappa and lambda mRNA performed on the clot section shows lambda light chain restriction. Furthermore, the Congo Red stain on the core biopsy is negative for amyloid deposition. Original diagnosis remains unchanged. 10/17/2023 1:38 PM [facility] Addendum electronically signed by Malika Fernandez MD on 10/17/2023 at 1338 FUEL OIL TRUCK DRIVER Embedded Images 10/17/2023 1:38 PM [facility] LAB Pathology/Cytology BONE MARROW SPECIMEN / Unknown 10/11/2023 9:25 AM FUEL OIL TRUCK DRIVER 10/12/2023 1:42 PM FUEL OIL TRUCK DRIVER Miscellaneous samples (specimen) BONE MARROW SPECIMEN / Unknown 10/11/2023 9:25 AM FUEL OIL TRUCK DRIVER 10/12/2023 1:55 PM FUEL OIL TRUCK DRIVER Joe Villalobos MD LAB - PATHO LOGY/CYTOLOGY ORDERABLES Edited Result - Final [facility] [address] [phone] documented in this encounter Visit Diagnoses Diagnosis Illness, unspecified documented in this encounter
--- OUTSIDE RECORDS SUMMARY | 2025-05-29 08:04 | XMS_ITS | Continuity of Care Document ---
Author Organization [facility] Address [address] [place] [address] [address] [place] [address] Phone Care Team Providers Care Cigar Packer And Picker Name Role Phone Marta Sabillon Unavailable Unavailable Procedures Procedure Date Eye Exam & Treatment Eye Exam & Treatment Advance Directives Directive Yes / No Effective Date File Name No Information Encounters Encounter Description Practice Location Reason(s) For Visit Diagnoses Date Provider Providers Copied on Encounter [facility], [address] [place] [address] [address], [place], [place], [id number], tel:[phone] [facility] No Information 9-[address]. [address] , [address], [place], [place], [facility], . tel:[phone] [facility], [address] [place] [address] [address], [place], [place], [id number], tel:[phone] [facility] No Information [address] , [address], [place], [place], [facility], . tel:[phone] Family History Family Member Type Diagnosis Age At Onset No Information Payers Payer name Insurance type Covered libertarian ID Authorlibbya nielsjennyfer(s) Medicaid [facility] [id number] Social History Type Description Quantity Date Captured [...]
--- OUTSIDE RECORDS SUMMARY | 2025-05-29 08:04 | XMS_ITS | Referral Summary ---
Author Organization [facility] Address [address] [place] [address] Care Team Providers Care Nuclear Monitoring Technician Name Role Phone aDly Servin MD Primary Care Provider Zofia Ordaz MD Unavailable [phone] Romeo Ascencio MD Unavailable [phone] Allergies Active Allergy Reactions Criticality Noted [...] (09/11/2019): Added automatically from request for surgery [id number] Calculus of gallbladder with out cholecystitis without obstruction 09/11/2019 Overview (09/11/2019): Added automatically from request for surgery [id number] Morbid obesity with BMI of 40.0-44.9, adult [...] on file Legal Sex Female 3:46 AM SIX HORSE HITCH DRIVER Gender Identity Not on file Sexual Orientation Not on file Occupation Industry Job Start Date Job End Date Disabled Not on file Not on file Not on file Last Filed Vital Signs Vital Sign Reading Time Taken Comments Blood Pressure 146/81 01/16/2025 9:15 AM CDT Pulse 69 01/16/2025 9:15 AM CDT Temperature 36.3 C (97.3 F) 12/10/2019 8:21 AM SIX HORSE HITCH DRIVER Respiratory Rate 18 12/12/2023 8:51 AM SIX HORSE HITCH DRIVER Oxygen Saturation 95% 01/16/2025 9:15 AM CDT Inhaled Oxygen Concentration - - Weight 109.8 kg (242 lb) 01/16/2025 9:15 AM CDT Height 162.6 cm (5' 4.02) 01/16/2025 9:15 AM CD T Body Mass Index 41.52 01/16/2025 9:15 AM CDT Plan of Treatment Not on file Medical Devices Implanted Type Area Chief Lock Tender Operator Device Identifier Shelf Expiration Date Model / Serial / Lot [employer] [id number] Jam[employer]on Bio-A 10x7cm Reinforcement Tissue Mesh Surgical Synthetic - [id number] - [id number] Implanted:Qty: 1 on 12/05/2019 by Gaby Orozco MD at [facility] Mesh N/A: Esophagus Wl [employer] [id number] 06/10/2022 [id number] / [id number] / Procedures Procedure Name Priority Date/Time Associated Diagnosis Comments LIPID PANEL STAT 12/06/2019 6:53 AM SIX HORSE HITCH DRIVER POCT HEMOGLOBIN A1C Routine 11/20/2019 8 :55 AM SIX HORSE HITCH DRIVER EGFR Routine 06/14/2017 3:14 PM CDT from Last 3 Months or Most Recently Relevant to Health Maintenance Results * Lipid panel (12/06/2019 6:53 AM SIX HORSE HITCH DRIVER) Cholesterol 187 30 - 199 mg/dL [facility] Comment: Interpretive Data Ages < or = [...] on 2018. Triglycerides 114 <=149 mg/dL [facility] Comment: Interpretive Data Ages < or = [...] on 2018. HDL 50 >=40 mg/dL [facility] Comment: Interpretive Data Ages < or = [...] on 2018. LDL, calculated 114 <=129 mg/dL [facility] Comment: Interpretive Data Ages < or [...] revised on 2018. Non-HDL Cholesterol 137 mg/dL [facility] Comment: Interpretive Data Ages < or [...] last revised on 2018. Chol/HDL ratio 4 [facility] Blood specimen (specimen) 12/06/2019 6:53 AM SIX HORSE HITCH DRIVER 12/06/2019 7:36 AM SIX HORSE HITCH DRIVER [facility]. Joe Orozco MD LAB BLOOD ORDERABLES Final R esult [facility] One [facility] Department [place] [address] * POCT hemoglobin A1c (11/20/2019 8:55 AM SIX HORSE HITCH DRIVER) Hgb A1C, POC 5.9 4.0 - 6.0 % [facility] Est Average Gluc POC 123 mg/dL [facility] Comment: The ADA recommends reporting an estimated Average Glucose (eAG) with all Hemoglobin A1c results using the equation derived from a study of 507 normal and diabetic adults. Minority populations were underrepresented and children were not included. (Diabetes Care 31:8584-7865, 2008). The eAG is not equivalent to a fasting glucose. Blood specimen (specimen) 11/20/2019 8:55 AM SIX HORSE HITCH DRIVER 11/20/2019 8:55 AM SIX HORSE HITCH DRIVER Gaby Orozco MD POINT OF CARE TEST ORDERABLE S Final Result Performing Organization Address City/[facility]/ZIP Co de Phone Number JORGITOELÍAS [facility] Department [place] [address] * eGFR (06/14/2017 3:14 PM CDT) eGFR 59 mL/min/1.7 3 m2 [facility] Comment: Interpretive Data Reference Interval Normal >/= 90 mL/min/1.73m2 Mildly decreased* 60 - 89 mL/min/1.73m2 Mildly to moderately decreased 45 - 59 mL/min/1.73m2 Moderately to severely decreased 30 - 44 mL/min/1.73m2 Severely decreased 15 - 29 mL/min/1.73m2 Kidney Failure < 15 mL/min/1.73m2 *Relative to young adult level If -Gabonese multiply value by 1.16. Estimated glomerular filtration [...] LAB BLOOD ORDERABLES Fi nal Result [facility] [address] Department [place] [address] from Last 3 Months or Most Recently Relevant to Health Maintenance Insurance MEDICARE IDPA MEDICARE IDPA MEDICARE IDPA Advance Directives For more information, please contact: [phone] * Full Code (Latest Code Status on File) Date Activated Date Inactivated Comments 12/05/2019 5:44 PM 12/10/2019 5:15 PM Care Teams Nuclear Monitoring Technician Relationship Specialty Start Date End Date Daly Servin MD [address] [address] PCP - General Internal Medicine 06/08/17 Zofia Ordaz MD [address] [address] Referring Physician Obstetrics and Gynecology 11/22/18 Romeo Ascencio MD [address] [address] Referring Physician Hematology 08/01/19
--- OUTSIDE RECORDS SUMMARY | 2025-05-29 08:04 | XMS_ITS ---
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
--- OUTSIDE RECORDS SUMMARY | 2025-05-29 08:04 | XMS_ITS | Encounter Summary ---
Author Organization [facility] Address [address] [facility] [place] [address] Care Team Providers Care Biological Technical Officer Name Role Phone Unavailable Primary Care Provider Unavailabl e Encounter Details Date Type Department Care Team (Late st Contact Info) Description 10/11/2023 Lab Requisition [facility] - Pathology Lab [address] [place] [id number] Joe Villalobos MD [address] [facility] [address] [place] [address] Disorder of white blood cells, unspecified [...] CYTOMETRY BONE MARROW Routine 10/11/2023 9:25 AM ELECTRICAL & INSTRUMENTATION SUPERVISOR Disorder of white blood cells, unspecified documented in this encounter Results * FLOW CYTOMETRY BONE MARROW (10/11/2023 9:25 AM ELECTRICAL & INSTRUMENTATION SUPERVISOR) Case Report Flow Cytometry Case: [id number] Authorizing Provider: Mo Villalobos MD Collected: 10/11/2023 09:25 AM Ordering Location: [facility] Lab Received: 10/11/2023 12:28 PM Pathologist: Brigette Ring MD Specimen: Bone Marrow 10/14/2023 4:30 PM ELECTRICAL & INSTRUMENTATION SUPERVISOR [facility] PATH[facility]Y LAB Final Diagnosis Bone marrow, flow cytometric immunophenotyping : - 5% clonal plasma cells identified with lambda light chain restriction, see comment - No evidence of a B-cell neoplasm or increased blasts 10/14/2023 4:30 PM [facility] PATH[facility] LAB at [address] ELECTRICAL & INSTRUMENTATION SUPERVISOR Flow Cytometry Interpretation Viability: 97% B-cells: polytypic, kappa:lambda ratio 1.6:1 Blasts: detected, 0.63% by CD34 expression Plasma cells: monoclonal, lambda-restricted , express CD138, CD56 with a subset expressing CD38 and CD19 MRD sent: No A bone marrow aspirate smear prepared from the flow cytometry specimen has been reviewed for compliance quality performance analyst purposes. Please refer to histologic sections of the bone marrow ([id number]). 10/14/2023 4:30 PM [facility] Flow Cytometry Results Differential Result Comment Flow Cell Count /uL 36,900 Total Viability % 97.0 Lymphocytes % 20 Dim CD45 Region % 7 0.63% blasts by CD34 expression Monocytes % 7 Granulocytes % 66 10/14/2023 4:30 PM [facility] Reason for test Disorder of white blood cells, unspecified 10/14/2023 4:30 PM [facility] Client Specimen ID # [id number] 10/14/2023 4:30 PM [facility] Number of markers 14 were performed. A-2 Flow CD10 A-3 Flow CD13 A-5 Flow CD20 A-13 Flow CD117 A-14 FLOW CD138 A-1 Flow CD5 A-4 Flow CD19 A-6 Flow CD33 A-7 Flow CD34 A-8 Flow CD45 A-11 Flow CD38 A-12 Flow CD56 A-9 [place]+CD19+ A-10 Lambda+CD19+ 10/14/2023 4:30 PM [facility] Pathologist Location at [facility] 10/14/2023 4:30 PM [facility] Disclaimer Test performed at [facility], [address] [place] [address], [id number]. *The established laboratory minimum viability is 70%. [...] high complexity clinical testing. 10/14/2023 4:30 PM ELECTRICAL & INSTRUMENTATION SUPERVISOR [facility] PATHOLOGY LAB Embedded Images 4:30 PM ELECTRICAL & INSTRUMENTATION SUPERVISOR [facility] PATHOLOG[facility] LAB Pathology/Cytolo gy BONE MARROW SPECIMEN / Unknown 10/11/2023 9:25 AM ELECTRICAL & INSTRUMENTATION SUPERVISOR 10/11/2023 12:28 PM ELECTRICAL & INSTRUMENTATION SUPERVISOR Joe Villalobos MD LAB - PATHOLOGY/CYT OLOGY ORDERABLES Final Result [facility] LAB [address] [place] [address], [facility] [phone] documented in this encounter Visit Diagnoses Diagnosis Disorder of white blood cells, unspecified documented in this encounter
--- OUTSIDE RECORDS SUMMARY | 2025-05-29 08:05 | XMS_ITS | Clinical Summary ---
Author Organization [facility] Address [address] [facility] [address] [place] [address] Phone Care Team Providers Care Mechanical Engineering Coop Name Role Phone Daly Servin MD Primary Care Provider Thierry Moreno Unavailable Allergies Active Allergy Reactions Criticality Noted Date Comments Egg-Derived Products Hives 04/20/2019 Latex Hives 04/20/2019 Medications fluticasone-ross anterol (BREO ELLIPTA) 200-25 MCG/INH AEROSOL POWDER, BREATH ACTIVATED INL 1 PUFF PO AT THE SAME TIME Q DAY. RM AFTER U 8 Active Cholecalciferol (D3-50) 52878 UNIT Capsule Take 50,000 Units by mouth. [...] Maintenance Insurance MEDICARE MEDICAID [place] Care Teams Mechanical Engineering Coop Relationship Specialty Start Date End Date Daly Servin MD [address] [place] [address] PCP - General Internal Medicine 04/20/19 Thierry Moreno [address] [place] [address] Otr Van Cdl Truck Driver 05/02/19
--- OUTSIDE RECORDS SUMMARY | 2025-05-29 08:05 | XMS_ITS | Clinical Summary ---
Author Organization [facility] Address [address] [place] [address] Care Team Providers Care Business Technology Teacher Name Role Phone Daly Servin MD Primary Care Provider Zofia Ordaz MD Unavailable [phone] Romeo Ascencio MD Unavailable [phone] Allergies Active Allergy Reactions Criticality Noted [...] (09/11/2019): Added automatically from request for surgery [id number] Calculus of gallbladder with out cholecystitis without obstruction 09/11/2019 Overview (09/11/2019): Added automatically from request for surgery [id number] Morbid obesity with BMI of 40.0-44.9, adult [...] on file Legal Sex Female 3:46 AM FISHER OYSTER Gender Identity Not on file Sexual Orientation [...] 36.3 C (97.3 F) 12/10/2019 8:21 AM FISHER OYSTER Respiratory Rate 18 12/12/2023 8:51 AM FISHER OYSTER Oxygen Saturation 95% 01/16/2025 9:15 AM CDT [...] 11/2022, 02/01/2016 Medical Devices Implanted Type Area Button Attaching Machine Operator Device Identifier Shelf Expiration Date Model / Serial / Lot [employer] [id number] [employer] Bio-A 10x7cm Reinforcement Tissue Mesh Surgical Synthetic - [id number] - [id number] Implanted:Qty: 1 on 12/05/2019 by Gaby Orozco MD at [facility] Mesh N/A: Esophagus Wl [employer] [id number] 06/10/2022 [id number] / [id number] / Procedures Procedure Name Priority Date/Time Associated Diagnosis Comments LIPID PANEL STAT 12/06/2019 6:53 AM FISHER OYSTER POCT HEMOGLOBIN A1C Routine 11/20/2019 8 :55 AM FISHER OYSTER EGFR Routine 06/14/2017 3:14 PM CDT from Last 3 Months or Most Recently Relevant to Health Maintenance Results * Lipid panel (12/06/2019 6:53 AM FISHER OYSTER) Cholesterol 187 30 - 199 mg/dL [facility] Comment: Interpretive Data Ages < or [...] on 2018. Triglycerides 114 <=149 mg/dL [facility] Comment: Interpretive Data Ages < or [...] on 2018. HDL 50 >=40 mg/dL [facility] Comment: Interpretive Data Ages < or [...] 2018. LDL, calculated 114 <=129 mg/dL [facility] Comment: Interpretive Data Ages < or [...] revised on 2018. Non-HDL Cholesterol 137 mg/dL [facility] Comment: Interpretive Data Ages < or [...] last revised on 2018. Chol/HDL ratio 4 [facility] Blood specimen (specimen) 12/06/2019 6:53 AM FISHER OYSTER 12/06/2019 7:36 AM FISHER OYSTER us L. Joe Orozco MD LAB BLOOD ORDERABLES Final R esult [facility] One [facility] Department [place] [address] * POCT hemoglobin A1c (11/20/2019 8:55 AM FISHER OYSTER) Hgb A1C, POC 5.9 4.0 - 6.0 % [facility] Est Average Gluc POC 123 mg/dL [facility] Comment: The ADA recommends reporting an estimated Average Glucose (eAG) with all Hemoglobin A1c results using the equation derived from a study of 507 normal and diabetic adults. Minority populations were underrepresented and children were not included. (Diabetes Care 31:9206-3685, 2008). The eAG is not equivalent to a fasting glucose. Blood specimen (specimen) 11/20/2019 8:55 AM FISHER OYSTER 11/20/2019 8:55 AM FISHER OYSTER us Gaby Orozco MD POINT OF CARE TEST ORDERABLE S Final Result Performing Organization Address City/[facility] Co de Phone Number [facility] One [facility] Department [place] [address] * eGFR (06/14/2017 3:14 PM CDT) eGFR 59 mL/min/1.7 3 m2 [facility] Comment: Interpretive Data Reference Interval Normal >/= 90 mL/min/1.73m2 Mildly decreased* 60 - 89 mL/min/1.73m2 Mildly to moderately decreased 45 - 59 mL/min/1.73m2 Moderately to severely decreased 30 - 44 mL/min/1.73m2 Severely decreased 15 - 29 mL/min/1.73m2 Kidney Failure < 15 mL/min/1.73m2 *Relative to young adult level If -Tunisian multiply value by 1.16. Estimated glomerular filtration [...] MD LAB BLOOD ORDERABLES Fi nal Result [facility] [place] [address] [place] Department [place] [address] from Last 3 Months or Most Recently Relevant to Health Maintenance Insurance MEDICARE [place] MEDICARE [place] MEDICARE [facility] Advance Directives For more information, please contact: [phone] * Full Code (Latest Code Status on File) Date Activated Date Inactivated Comments 12/05/2019 5:44 PM 12/10/2019 5:15 PM Care Teams Business Technology Teacher Relationship Specialty [place] [address] [place] [address] PCP - General Internal Medicine 06/08/17 VuyZofia malone MD [address] [address] Referring Physician Obstetrics and Gynecology 11/22/18 Romeo Ascencio MD [address] [address] Referring Physician Hematology 08/01/19
--- OUTSIDE RECORDS SUMMARY | 2025-05-29 08:05 | XMS_ITS | Encounter Summary ---
Author Organization [facility] Address [address] [facility] [place] [place] [address] Phone Care Team Providers Care Fur Tailor Name Role Phone Daly Servin MD Primary Care Provider Thierry Moreno Unavailable Reason for Visit * Reason Comments Medication Refill Encounter Details Date Type Department Care Team (Late st Contact Info) Description 05/23/2021 Refill [facility] - Gastroenterology [facility] [address] [place] [address] Gerry Lisa Krista, PAC [address] [place], [place] [id number] Medication Refill Social History Tobacco Use Types [...] on filedocumented in this encounter Care Teams Fur Tailor Relationship Specialty Start Date End Date Daly Servin MD [address] [place] [address] PCP - General Internal Medicine 04/20/19 Thierry Moreno [id number] [place] [address] Fruit Ii Farmworker 05/02/19 documented as of this encounter
--- OUTSIDE RECORDS SUMMARY | 2025-05-29 08:05 | XMS_ITS | Clinical Summary ---
Author [facility] Address [address] [place] [address] Care Team Providers Care Procurement Representative Name Role Phone Daly Servin MD Primary Care Provider Allergies Active Allergy Reactions Criticality Noted Date [...] days Active fluticasone propionate (FLONASE) 50 mcg/spray Alexander, Suspension nasal inhaler Administer 2 Sprays in [...] Comments Blood Pressure 150/81 10/12/2024 8:50 AM ORACLE WMS CONSULTANT Pulse 90 10/12/2024 8:50 AM ORACLE WMS CONSULTANT Temperature 36.5 C (97.7 F) 10/12/2024 8:50 AM ORACLE WMS CONSULTANT Respiratory Rate 18 10/12/2024 8:50 AM ORACLE WMS CONSULTANT Oxygen Saturation 96% 10/12/2024 8:50 AM ORACLE WMS CONSULTANT Inhaled Oxygen Concentration - - Weight 107 kg (236 lb) 10/12/2024 8:50 AM ORACLE WMS CONSULTANT Height 162.6 cm (5' 4) 09/14/2023 9:50 AM ORACLE WMS CONSULTANT Body Mass Index 40.51 09/14/2023 9:50 AM ORACLE WMS CONSULTANT Plan of Treatment Upcoming Encounters Date Type Department Care Team (Late st Contact Info) Description 06/19/2025 11:00 AM CDT Office Visit [facility] Oncology and Hematology - [place] [address] [facility] [address] [place] [address] Romeo Ascencio MD [address] [facility] [address] [place] [address] Health Maintenance Due Date Last [...] MEDICARE PART B MEDICAID [place] Care Teams Procurement Representative Relationship Specialty Start Date End Date Daly Servin MD [address] [place] [address] PCP - General Internal Medicine 07/31/18
[2025-05-29] MEDS: HYDROmorphone HCL INJ (*CRX) 2 MG/ML VIAL 0.5 MG IV PUSH (09:18)
[2025-05-29] MEDS: ONDANSETRON INJ 4 MG/2 ML VIAL IV PUSH ×3 (09:18→21:40)
[2025-05-29] MEDS: SODIUM CHLORIDE 0.9% IV 1,000 ML 999 ML IV CONT (09:18)
[2025-05-29 09:42] LABS: Add Urine Microscopic? YES; Appearance Urine Clear (Clear); Glucose Urine UA Negative (Negative); Leukocyte Esterase Ur 2+ LEU/UL (Negative); Nitrate Urine Negative (Negative); Non Pathogenic Casts 0-2; Specific Grav Ur > 1.045 (1.001-1.035)
[2025-05-29] MEDS: cefTRIAXone 1 GM in SODIUM CHLORIDE 0.9% IV 50 ML 100 ML IVPB (11:22)
[2025-05-29 11:29] LABS: Troponin I 0.544 ng/mL (0.000-0.034)
[2025-05-29] MEDS: HEPARIN SOD/D5W 100 UNITS/ML 25,000 UNITS/250 ML BAG 9 UNITS IV CONT (12:33)
--- NOTE | 2025-05-29 12:48 | P.CONCA_ITS ---
Assessment and Plan Assessment and plan (1) Chest pain: Code(s): R07.9 - Chest pain, unspecified Status: Acute Assessment and Plan: EKG is unremarkable. Troponin on 2nd set went up to 0.544. On heprin drip, aspirin. Start NTG patch to control cp as she states it is severe 9/10. Obtain echo. If troponin trends up or WMA on echo or ongoing cp, then may need urgent LHC. (2) Essential hypertension: Code(s): I10 - Essential (primary) hypertension Status: Acute Assessment and Plan: High. (3) Dyslipidemia: Code(s): E78.5 - Hyperlipidemia, unspecified Status: Acute Assessment and Plan: Intolerant of statins. (4) Urinary tract infection: Code(s): N39.0 - Urinary tract infection, site not specified Status: Acute Assessment and Plan: On antibiotics. History of Present Illness History of Present Illness Consult date/time: 05/29/25 12:48 Reason For Visit: Chest pain Narrative: 74 yr old woman presents to ER with chest pain. She has a history of asthma, DM, hypertension, dyslipidemia. Her regular team coordinator is Dr. Moreno. States that she had sudden onset chest pressure on left side of chest since 7 pm, then it went away, and returned in middle of night waking her up and has 9/10 pain now. She has vomited a few times, and with vomiting her chest pain feels better. No sob. She is normally limited at walking short distances due to asthma. Denies orthopnea, PND, edema, dizziness, palpitations. Review of Systems 2 Review of Systems: All systems reviewed & are unremarkable except as noted in HPI and below Constitutional: Constitutional: Reports as per HPI, Denies chills and Denies fever(s) Cardiovascular: Cardiovascular: Reports as per HPI, Reports chest pain and Denies irregular heart rhythm Respiratory: Respiratory: Reports as per HPI and Reports dyspnea on exertion Gastrointestinal: Gastrointestinal: Reports as per HPI, Denies abdominal pain, Reports nausea and Reports vomiting Genitourinary: Genitourinary: Reports as per HPI Musculoskeletal: Musculoskeletal: Reports as per HPI Neurologic: Reports as per HPI, Denies dizziness and Denies syncope [facility] Past Medical History Medical History Shortness of Breath Type 2 diabetes mellitus GERD (gastroesophageal reflux disease) Essential hypertension Asthma Family History Family History Mother Cerebrovascular accident, Onset Age: 70 Family history of rheumatoid arthritis, Onset Age: 70 Grandparent Family history of malignant neoplasm of ovary, Onset Age: 82 Father Patient's father is in good health Other Diabetes mellitus Hypertension Social History Social History Smoking packs per day: 0 Smoking cigarettes per day: 0.0 Years smoked: 0 Smoking pack-years: 0.00 Smoking status: Never smoker Second hand tobacco smoke exposure: No Alcohol intake: never Substance use type: does not use Living arrangements: alone Meds Home Medications and Allergies Home Medications ?Medication ?Instructions ?Recorded ?Confirmed ?Type Black Elderberry 4,000 mg PO DAILY 03/06/20 10/10/23 History cod liver oil 2 cap PO HS 03/06/20 10/10/23 History cyanocobalamin (vitamin B-12) 2,500 mcg sublingual DAILY 03/06/20 10/10/23 History 2,500 mcg sublingual tablet (Vitamin B-12) aspirin 81 mg tablet,delayed 81 mg PO DAILY 04/28/20 10/10/23 History release (Adult Aspirin Regimen) ergocalciferol (vitamin D2) 1,250 1,250 mcg PO MONTHLY 04/28/20 10/10/23 History mcg (50,000 unit) capsule (Vitamin D2) fenofibrate 160 mg tablet 160 mg PO DAILY 04/28/20 10/10/23 History hydrochlorothiazide 25 mg tablet 25 mg PO DAILY 04/28/20 10/10/23 History metformin 850 mg tablet [facility] 04/28/20 10/10/23 History montelukast 10 mg tablet 10 mg PO HS 04/28/20 10/10/23 History omeprazole 20 mg capsule,delayed 20 mg PO DAILY 04/28/20 10/10/23 History release ezetimibe 10 mg tablet 10 mg PO DAILY 05/01/20 10/10/23 History memantine 10 mg tablet 10 mg PO DAILY 05/01/20 10/10/23 History metoprolol succinate 200 mg 200 mg PO DAILY 05/01/20 10/10/23 History tablet,extended release 24 hr fluticasone propionate 50 1 spray intranasal BID #16 grams 08/02/22 10/10/23 Rx mcg/actuation nasal spray,suspension (Flonase Allergy Relief) fluticasone furoate 100 1 inh inhalation DAILY 03/28/23 10/10/23 History mcg-vilanterol 25 mcg/dose inhalation powder (Breo Ellipta) ascorbate calcium (vitamin C) 500 500 mg PO DAILY 08/23/23 10/10/23 History mg tablet vitamin E (dl, acetate) 45 mg (100 45 mg PO DAILY 08/23/23 10/10/23 History unit) capsule acetaminophen 325 mg tablet 650 mg PO Q6H PRN Pain (Scale 10/10/23 10/10/23 History Score 1-3) albuterol sulfate 90 mcg/actuation 2 puff inhalation Q4-6H PRN 10/10/23 10/11/23 History aerosol inhaler (Ventolin HFA) Wheezing semaglutide 0.25 mg or 0.5 mg (2 0.25 mg subcut WEEKLY 10/10/23 10/10/23 History mg/3 mL) subcutaneous pen injector (Ozempic) prednisone 10 mg tablet See Rx Instructions PO DAILY #34 12/23/23 Rx tabs Allergies Allergy/AdvReac Type Severity Reaction Status Date / Time egg Allergy Unknown Rash Verified 05/29/25 07:55 latex Allergy Unknown Hives Verified 05/29/25 07:55 adhesive Allergy Rash Verified 05/29/25 07:55 chicken derived Allergy Hives Verified 05/29/25 07:55 atorvastatin AdvReac Unknown Cramping Verified 05/29/25 07:55 of the Muscles rosuvastatin AdvReac Unknown Cramping Verified 05/29/25 07:55 of the Muscles Vital Signs Vital Signs - 24 hr 05/29/25 06:53 05/29/25 06:58 05/29/25 07:00 Temperature 97.9 F Pulse Rate 93 88 82 Respiratory Rate 26 H 25 H 20 Blood Pressure 165/94 H Pulse Oximetry 100 100 100 Oxygen Delivery Room Air 05/29/25 07:02 05/29/25 07:03 05/29/25 07:18 Temperature Pulse Rate 82 83 Respiratory Rate 18 23 H Blood Pressure 179/88 H Pulse Oximetry 100 100 Oxygen Delivery Room Air 05/29/25 07:30 05/29/25 07:45 05/29/25 07:50 Temperature Pulse Rate 74 74 84 Respiratory Rate 19 19 Blood Pressure Pulse Oximetry 99 100 Oxygen Delivery 05/29/25 08:11 05/29/25 08:12 05/29/25 08:15 Temperature Pulse Rate 86 88 77 Respiratory Rate 24 H 18 25 H Blood Pressure 181/94 H Pulse Oximetry 100 100 100 Oxygen Delivery 05/29/25 08:30 05/29/25 08:32 05/29/25 08:45 Temperature Pulse Rate 76 78 78 Respiratory Rate 22 H 22 H 25 H Blood Pressure 181/90 H Pulse Oximetry 100 100 99 Oxygen Delivery 05/29/25 09:08 05/29/25 11:04 05/29/25 11:25 Temperature Pulse Rate 75 78 74 Respiratory Rate 21 H 18 19 Blood Pressure Pulse Oximetry 99 98 99 Oxygen Delivery 05/29/25 11:49 Temperature Pulse Rate 99 Respiratory Rate 15 Blood Pressure 150/71 H Pulse Oximetry 98 Oxygen Delivery Exam 2 Const: General: cooperative, healthy appearing and comfortable Resp: Auscultation: clear to auscultation bilaterally, no crackles, no rales, no rhonchi and no wheezes Cardio: Rate: regular rate Rhythm: regular rhythm Heart sounds: no murmurs Peripheral pulses: dorsalis pedis present GI: GI Palp: No abdominal tenderness and Yes Soft to palpation Neuro: General: oriented to person, oriented to place and oriented to time Extrem: Right lower extremity: no edema Left lower extremity: no edema Results Labs and Meds 05/29/25 07:00 05/29/25 07:00 Lab results: Cardiac Enzymes 05/29/25 05/29/25 Range/Units 07:00 10:37 AST 33 (14-36) U/L Troponin I < 0.012 0.544 H* D (0.000-0.034) ng/mL Coagulation 05/29/25 Range/Units 07:00 PT 14.0 (11.1-14.7) Seconds APTT 25.2 (22.3-36.8) Seconds CBC 05/29/25 Range/Units 07:00 WBC 6.9 (4.5-10.0) K/mm3 RBC 4.10 L (4.2-5.4) M/mm3 Hgb 12.6 (12.0-15.0) g/dL Hct 38.3 (37.0-47.0) % Plt Count 227 (150-375) k/mm3 Lymph # (Auto) 2.47 (0.9-3.2) K/mm3 [place] # (Auto) 0.5 (0.1-0.6) K/mm3 Eos # (Auto) 0.4 H (0-0.3) K/mm3 Baso # (Auto) 0.0 (0.0-0.1) K/mm3 Comprehensive Metabolic Panel 05/29/25 Range/Units 07:00 Sodium 137 (137-145) mmol/L Potassium 3.2 L (3.4-5.0) mmol/L Chloride 103 (98-107) mmol/L Carbon Dioxide 26 (22-30) mmol/L BUN 8 D (7-17) mg/dL Creatinine 0.96 (0.7-1.0) mg/dL Glucose 126 H (65-110) mg/dL Calcium 9.1 (8.4-10.2) mg/dL AST 33 (14-36) U/L ALT 19 (6-35) U/L Alkaline Phosphatase 73 (38-126) U/L Total Protein 9.6 H (6.3-8.2) g/dL Albumin 4.1 (3.5-5.1) g/dL Intake and Output 05/28/25 05/29/25 05/29/25 23:59 07:59 15:59 Intake Total 1050 Balance 1050 Intake: IV 1050 Sodium Chloride 0.9% IV 1,000 1000 ml @ 999 mls/hr IV CONT .Q1H1M STA Rx#:[id number] cefTRIAXone 1 gm In Sodium 50 Chloride 0.9% IV 50 ml @ 100 mls/hr IVPB QAM MY Rx#: [id number] Patient Weight 05/29/25 23:59 Weight 105 kg
[2025-05-29] MEDS: POTASSIUM CHLORIDE 20 MEQ ER TABLET 40 MEQ PO (12:55)
[2025-05-29] MEDS: ONDANSETRON INJ 4 MG/2 ML VIAL (12:55)
--- NOTE | 2025-05-29 12:58 | ECG_ITS ---
Test Date: 2025-05-29 13:20:46 Measurements Intervals [place] Rate: 78 P: 43 [place]: 188 QRS: 21 QRSD: 76 T: 37 QT: 400 QTc: 457 Interpretive Statements SINUS RHYTHM NORMAL ECG Compared to ECG 05/29/2025 06:56:41 ST (T wave) deviation no longer present Electronically Signed On 05-29-2025 14:12:00 CDT by Robert Victor M.D.
[2025-05-29] MEDS: NITROGLYCERIN OINTMENT 1 INCH DOSE TRANSDERM (13:06)
--- NOTE | 2025-05-29 13:15 | PM.IMHP ---
H&P: HPI History of Present Illness Date/Time: 05/29/25 13:15 Chief Complaint: Chest Pain Narrative: 74 years old female, hx diabetes, HLD, who came to the ED complaining of left chest heaviness and tightness radiating to her left arm that woke her up from sleep at 12 midnight. Initially reported 10/10, then 12/10. She reports she was diaphoretic and her bed was soaked when she woke up. Pain constant and she reports nausea, vomited twice. Also mild shortness of breath. Cardiology consulted for elevated troponin, up to 0.544<1.470. She was started on a heparin drip and aspirin. EKG NSR nonspecific ST changes. Started NTG patch to control cp as she states it is severe 07/17. Repeat EKG NSR. Stat Echo ordered Otherwise, she has been in her usual state of health this week, no new complaints. No recent fever, chills, diarrhea, or back pain. She follows with Dr. Taya Moreno outpatient ([phone]). Left a message with the office for additional history. Reports stress test negative about 3 months ago. Says this was done because of chest pain with activity. [facility] [place] to review medications. Home meds Ozempic (last filled in March), metoprolol ER 100 daily, metformin 850 BID, donepezil 10mg daily, memantine 10 BID, hctz 25 daily, breo 200, ezetimibe 10 daily, albuterol inhaler prn (no recent fills) Prednisone was an old medication from a prior asthma exacerbation. Omeprazole, fenofibrate, & singulair not yet confirmed as current PMFSH Past Medical History Medical History Shortness of Breath Type 2 diabetes mellitus GERD (gastroesophageal reflux disease) Essential hypertension Asthma Family History Family History Mother Cerebrovascular accident, Onset Age: 70 Family history of rheumatoid arthritis, Onset Age: 70 Grandparent Family history of malignant neoplasm of ovary, Onset Age: 82 Father Patient's father is in good health Other Diabetes mellitus Hypertension Social History Social History Smoking packs per day: 0 Smoking cigarettes per day: 0.0 Years smoked: 0 Smoking pack-years: 0.00 Smoking status: Never smoker Second hand tobacco smoke exposure: No Alcohol intake: never Substance use type: does not use Living arrangements: alone Meds Home Medications and Allergies Home Medications ?Medication ?Instructions ?Recorded ?Confirmed ?Type Black Elderberry 4,000 mg PO DAILY 03/06/20 10/10/23 History cod liver oil 2 cap PO HS 03/06/20 10/10/23 History cyanocobalamin (vitamin B-12) 2,500 mcg sublingual DAILY 03/06/20 10/10/23 History 2,500 mcg sublingual tablet (Vitamin B-12) aspirin 81 mg tablet,delayed 81 mg PO DAILY 04/28/20 10/10/23 History release (Adult Aspirin Regimen) ergocalciferol (vitamin D2) 1,250 1,250 mcg PO MONTHLY 04/28/20 10/10/23 History mcg (50,000 unit) capsule (Vitamin D2) fenofibrate 160 mg tablet 160 mg PO DAILY 04/28/20 10/10/23 History hydrochlorothiazide 25 mg tablet 25 mg PO DAILY 04/28/20 10/10/23 History metformin 850 mg tablet 850 mg PO QACDINNER 04/28/20 10/10/23 History montelukast 10 mg tablet 10 mg PO HS 04/28/20 10/10/23 History omeprazole 20 mg capsule,delayed 20 mg PO DAILY 04/28/20 10/10/23 History release ezetimibe 10 mg tablet 10 mg PO DAILY 05/01/20 10/10/23 History memantine 10 mg tablet 10 mg PO DAILY 05/01/20 10/10/23 History metoprolol succinate 200 mg 200 mg PO DAILY 05/01/20 10/10/23 History tablet,extended release 24 hr fluticasone propionate 50 1 spray intranasal BID #16 grams 08/02/22 10/10/23 Rx mcg/actuation nasal spray,suspension (Flonase Allergy Relief) fluticasone furoate 100 1 inh inhalation DAILY 03/28/23 10/10/23 History mcg-vilanterol 25 mcg/dose inhalation powder (Breo Ellipta) ascorbate calcium (vitamin C) 500 500 mg PO DAILY 08/23/23 10/10/23 History mg tablet vitamin E (dl, acetate) 45 mg (100 45 mg PO DAILY 08/23/23 10/10/23 History unit) capsule acetaminophen 325 mg tablet 650 mg PO Q6H PRN Pain (Scale 10/10/23 10/10/23 History Score 1-3) albuterol sulfate 90 mcg/actuation 2 puff inhalation Q4-6H PRN 10/10/23 10/11/23 History aerosol inhaler (Ventolin HFA) Wheezing semaglutide 0.25 mg or 0.5 mg (2 0.25 mg subcut WEEKLY 10/10/23 10/10/23 History mg/3 mL) subcutaneous pen injector (Ozempic) prednisone 10 mg tablet See Rx Instructions PO DAILY #34 12/23/23 Rx tabs Allergies Allergy/AdvReac Type Severity Reaction Status Date / Time egg Allergy Unknown Rash Verified 05/29/25 07:55 latex Allergy Unknown Hives Verified 05/29/25 07:55 adhesive Allergy Rash Verified 05/29/25 07:55 chicken derived Allergy Hives Verified 05/29/25 07:55 atorvastatin AdvReac Unknown Cramping Verified 05/29/25 07:55 of the Muscles rosuvastatin AdvReac Unknown Cramping Verified 05/29/25 07:55 of the Muscles Vital Signs Vital Signs - 24 hr 05/29/25 06:53 05/29/25 06:58 05/29/25 07:00 Temperature 97.9 F Pulse Rate 93 88 82 Respiratory Rate 26 H 25 H 20 Blood Pressure 165/94 H Pulse Oximetry 100 100 100 Oxygen Delivery Room Air 05/29/25 07:02 05/29/25 07:03 05/29/25 07:18 Temperature Pulse Rate 82 83 Respiratory Rate 18 23 H Blood Pressure 179/88 H Pulse Oximetry 100 100 Oxygen Delivery Room Air 05/29/25 07:30 05/29/25 07:45 05/29/25 07:50 Temperature Pulse Rate 74 74 84 Respiratory Rate 19 19 Blood Pressure Pulse Oximetry 99 100 Oxygen Delivery 05/29/25 08:11 05/29/25 08:12 05/29/25 08:15 Temperature Pulse Rate 86 88 77 Respiratory Rate 24 H 18 25 H Blood Pressure 181/94 H Pulse Oximetry 100 100 100 Oxygen Delivery 05/29/25 08:30 05/29/25 08:32 05/29/25 08:45 Temperature Pulse Rate 76 78 78 Respiratory Rate 22 H 22 H 25 H Blood Pressure 181/90 H Pulse Oximetry 100 100 99 Oxygen Delivery 05/29/25 09:08 05/29/25 11:04 05/29/25 11:25 Temperature Pulse Rate 75 78 74 Respiratory Rate 21 H 18 19 Blood Pressure Pulse Oximetry 99 98 99 Oxygen Delivery 05/29/25 11:49 Temperature Pulse Rate 99 Respiratory Rate 15 Blood Pressure 150/71 H Pulse Oximetry 98 Oxygen Delivery Exam Narrative: General - Awake and alert. No acute distress Eyes - PERRLA, EOM intact ENT - No thrush, No erythema Neck - No noticeable or palpable swelling Lymph Nodes - No lymphadenopathy Cardiovascular - RRR no m/r/g, no JVD Lungs: Clear to auscultation, No wheezing, use of accessory muscles, no crackles Skin - Skin warm and dry, no wounds or rashes Abdomen - Normal bowel sounds, abdomen soft and nontender Extremities - No edema, cyanosis or clubbing Musculoskeletal - 5/5 strength, normal range of motion, no swollen or erythematous joints. Neurological ? Alert and oriented x 3, CN 2-12 grossly intact. Psych: Normal mood and affect H&P: Results Labs Labs: Short CBC 05/29/25 Range/Units 07:00 WBC 6.9 (4.5-10.0) K/mm3 Hgb 12.6 (12.0-15.0) g/dL Hct 38.3 (37.0-47.0) % Plt Count 227 (150-375) k/mm3 BMP 05/29/25 07:00 Sodium 137 Potassium 3.2 L Chloride 103 Carbon Dioxide 26 BUN 8 D Creatinine 0.96 Glucose 126 H Calcium 9.1 Cardiac Enzymes 05/29/25 05/29/25 Range/Units 07:00 10:37 Troponin I < 0.012 0.544 H* D (0.000-0.034) ng/mL Liver Function 05/29/25 Range/Units 07:00 Total Bilirubin 0.7 (0.2-1.3) mg/dL AST 33 (14-36) U/L ALT 19 (6-35) U/L Alkaline Phosphatase 73 (38-126) U/L Albumin 4.1 (3.5-5.1) g/dL Urine 05/29/25 Range/Units 09:31 Urine Color Yellow (Yellow) Urine Appearance Clear (Clear) Urine pH 8.5 (5.0-9.0) Ur Specific [place] > 1.045 H (1.001-1.035) Urine Protein Trace (Negative) mg/dL Urine Glucose (UA) Negative (Negative) mg/dL Assessment and Plan Assessment and plan (1) NSTEMI (non-ST elevated myocardial infarction): Code(s): I21.4 - Non-ST elevation (NSTEMI) myocardial infarction Status: Acute Assessment and Plan: Acute chest pain started while sleeping this morning. Associated with left arm pain--under arm, diaphoresis, and --Continue ASA, Heparin drip --Lipid profile, HgbA1c --intolerant of atorvastatin and rosuvastatin --Stat Echo pending --Cardiology consulted, appreciate recommendations. Possible cath --Continue ezetimibe (2) Diabetes mellitus: Code(s): E11.9 - Type 2 diabetes mellitus without complications Status: Acute Assessment and Plan: Blood sugars AC&Hs. Blood sugar 126 --Check HgbA1c --Accuchecks ACHs & SSI --Holding ozempic and metformin (3) Hypokalemia: Code(s): E87.6 - Hypokalemia Status: Acute Assessment and Plan: Potassium 3.2, add on mag level. reports vomiting, given potassium 40 PO x1 --Follow BMP, give 20 IV if continued vomiting today (4) Elevated total protein: Code(s): R77.8 - Other specified abnormalities of plasma proteins Status: Acute Assessment and Plan: MGUS Elevated total protein Protein 9.6, Albumin 4.1, protein gap 5.5. Chronically elevated Prior SPEP in 2019 showed a IgG lambda monoclonal band -Chronically increased risk for MM, amyloidosis, Waldenstrom's, and B-cell lymphoproliferative disorders. PET scan 11/2024 no evidence of MM (5) Cirrhosis of liver: Code(s): K74.60 - Unspecified cirrhosis of liver Status: Acute Assessment and Plan: CT noted cirrhosis of the liver. No hx ETOH PET scan 11/2024 showed diffuse hepatic steatosis Has chronically elevated IgG levels. --GI follow up --Treatment of HLD, Diabetes --Check hepatitis, ferritin levels Quality VTE Prophylaxis VTE prophylaxis: pharmacologic ordered Hospitalist MIPS Advance Care Plan I have confirmed that the patient's Advanced Care Plan is present, code status is documented, or surrogate decision maker is listed in patient medical record.: Yes Medication Reconciliation I have utilized all available resources to obtain, update and review the patients current medications (includes all prescriptions, OTC, herbals, cannabis, and nutritional supplements).: Yes
--- NOTE | 2025-05-29 13:20 | PC.NURSE ---
Vasc access called to get another IV and lab draw.
[2025-05-29 13:41] LABS: Troponin I 1.470 ng/mL (0.000-0.034)
--- NOTE | 2025-05-29 13:46 | ECG_ITS ---
Test Date: 2025-05-29 13:53:40 Measurements Intervals [place] Rate: 72 P: 41 [place]: 183 QRS: 19 QRSD: 73 T: 33 QT: 404 QTc: 443 Interpretive Statements SINUS RHYTHM NORMAL ECG Compared to ECG 05/29/2025 13:20:46 No significant changes Electronically Signed On 05-29-2025 14:12:51 CDT by Robert Victor M.D.
[2025-05-29 14:20] LABS: Hematocrit 36.4 % (37.0-47.0); Hemoglobin 12.0 g/dL (12.0-15.0); Immature Granulocyte Percent A 0.5 % (0-0.5); Lymphocytes Absolute Auto 1.20 K/mm3 (0.9-3.2); Mean Corpuscular HGB Conc 33.0 g/dl (32-36); Mean Corpuscular Hemoglobin 30.7 pg (26-34); Mean Corpuscular Volume 93.1 fl (80-100); Nucleated Red Blood Cells Absolute Auto 0.000 K/mm3 (0.0-0.012); Nucleated Red Blood Cells Perc 0.0 % (0.0-0.2); Platelet Count Result 212 k/mm3 (150-375); Red Blood Count 3.91 M/mm3 (4.2-5.4); White Blood Count 5.8 K/mm3 (4.5-10.0)
[2025-05-29 14:31] LABS: INR 1.1; Prothrombin Time 14.3 Seconds (11.1-14.7)
[2025-05-29 14:32] LABS: Partial Thromboplastin Time 30.9 Seconds (22.3-36.8)
[2025-05-29] MEDS: NITROGLYCERIN/D5W 200 MCG/ML 50 MG/250 ML BTL IV CONT (15:28)
[2025-05-29 15:43] LABS: Magnesium 1.9 mg/dL (1.6-2.3)
--- NOTE | 2025-05-29 15:55 | ADMGEN ---
This patient, Macey Pratt, was admitted to Intensive Care Unit-9 at approximately 1550. Patient/family oriented to hospital policies and general routines including ID bracelet, bed and alarms, visiting hours, pain management, procedures, bathroom and other care routines, personal items, smoking policy, room service/diet, and visiting hours. Information on how to activate the Rapid Response Team has been discussed. Patient/Family are encouraged to report perceived risks to care and to ask questions if they do not understand what they are told or what they should do.
[2025-05-29 17:32] LABS: MRSA (PCR) NOT DETECTED (NOT DETECTE)
--- NOTE | 2025-05-29 18:49 | PC.NURSE ---
broadcast technician unable to draw blood for labs. PT does not want to be stuck again but is agreeable to letting the new denture laboratory technician stick her at 1999. Notified Dr Mcduffie who gave ok, educated patient on importance of lab draws and neccessity to check PTT q6hrs, and increased risk of bleeding. PT acknowledged and agreed to try again at 1999.
[2025-05-29 20:38] LABS: Hematocrit 38.2 % (37.0-47.0); Hemoglobin 11.8 g/dL (12.0-15.0); Immature Granulocyte Percent A 0.4 % (0-0.5); Lymphocytes Absolute Auto 1.50 K/mm3 (0.9-3.2); Mean Corpuscular HGB Conc 30.9 g/dl (32-36); Mean Corpuscular Hemoglobin 31.0 pg (26-34); Mean Corpuscular Volume 100.3 fl (80-100); Nucleated Red Blood Cells Absolute Auto 0.000 K/mm3 (0.0-0.012); Nucleated Red Blood Cells Perc 0.0 % (0.0-0.2); Platelet Count Result 164 k/mm3 (150-375); Red Blood Count 3.81 M/mm3 (4.2-5.4); White Blood Count 5.4 K/mm3 (4.5-10.0)
[2025-05-29 20:50] LABS: Partial Thromboplastin Time 30.3 Seconds (22.3-36.8)
--- NOTE | 2025-05-29 20:56 | ECG_ITS ---
Test Date: 2025-05-29 21:02:11 Measurements Intervals [place] Rate: 75 P: 56 [place]: 166 QRS: 28 QRSD: 78 T: 37 QT: 396 QTc: 444 Interpretive Statements SINUS RHYTHM WITH SINUS ARRHYTHMIA MINIMAL VOLTAGE CRITERIA FOR LVH, CONSIDER NORMAL VARIANT [MEETS CRITERIA IN ONE OF: R(aVL), S(V1), R(V5), R(V5/V6)+S(V1)] Compared to ECG 05/29/2025 13:53:40 No significant changes Electronically Signed On 05-31-2025 15:37:28 CDT by Karlos Bustillo M.D.
[2025-05-29 21:12] LABS: Troponin I 5.930 ng/mL (0.000-0.034)
[2025-05-29] MEDS: PANTOPRAZOLE 40 MG TABLET PO (21:38)
[2025-05-29] MEDS: MAG HYDROX/AL HYDROX/SIMETH 30 ML UDC PO (21:41)
[2025-05-30] VITALS (24 sets, daily range): BP systolic 118–154; BP diastolic 54–99; PULSE 70–104; RESP 16–24; TEMP 36.6–37.1; O2SAT 93–100
[2025-05-30] MEDS: ONDANSETRON INJ 4 MG/2 ML VIAL IV PUSH ×2 (04:30→11:19)
[2025-05-30 04:51] LABS: Hematocrit 34.6 % (37.0-47.0); Hemoglobin 11.2 g/dL (12.0-15.0); Immature Granulocyte Percent A 0.5 % (0-0.5); Lymphocytes Absolute Auto 1.74 K/mm3 (0.9-3.2); Mean Corpuscular HGB Conc 32.4 g/dl (32-36); Mean Corpuscular Hemoglobin 30.8 pg (26-34); Mean Corpuscular Volume 95.1 fl (80-100); Nucleated Red Blood Cells Absolute Auto 0.000 K/mm3 (0.0-0.012); Nucleated Red Blood Cells Perc 0.0 % (0.0-0.2); Platelet Count Result 178 k/mm3 (150-375); Red Blood Count 3.64 M/mm3 (4.2-5.4); White Blood Count 7.4 K/mm3 (4.5-10.0)
[2025-05-30 04:56] LABS: INR 1.2; Prothrombin Time 14.8 Seconds (11.1-14.7)
[2025-05-30 04:58] LABS: Partial Thromboplastin Time 79.1 Seconds (22.3-36.8)
[2025-05-30 05:34] LABS: Ferritin 222.00 ng/mL (11.1-264)
[2025-05-30 05:46] LABS: Hepatitis B Surface Antigen Negative (Negative)
[2025-05-30 05:52] LABS: HAV RESULT Negative (Negative); Hepatitis B Core IgM Result Negative (Negative)
[2025-05-30 06:21] LABS: Anion Gap 6 mmol/L (4-12); Blood Urea Nitrogen 6 mg/dL (7-17); Calcium 9.0 mg/dL (8.4-10.2); Carbon Dioxide 24 mmol/L (22-30); Chloride 101 mmol/L (98-107); Cholesterol 237 mg/dL (0-200); Estimated CRCL calculation 60 ml/min; Estimated Glomerular Filt Rate > 60; Glucose 122 mg/dL (65-110); HDL Direct 57 mg/dL; Magnesium 2.1 mg/dL (1.6-2.3); Potassium 3.7 mmol/L (3.4-5.0); Sodium 131 mmol/L (137-145); Triglycerides 122 mg/dL (<150)
[2025-05-30 06:51] LABS: Troponin I 7.270 ng/mL (0.000-0.034)
--- NOTE | 2025-05-30 07:42 | P.PNCA_ITS ---
Progress Note: A&P Assessment and Plan (1) Chest pain: Code(s): R07.9 - Chest pain, unspecified Status: Acute Assessment and Plan: Due to NSTEMI. EKG is unremarkable. Troponin continues to rise now up to 7.27. 05/29/25 Echo: EF 60-65%, grade I diastolic dysfunction (E/e' 10), mild LAE, trace MR, RVSP 41 mmHg. Her regular border patrol agent is Dr. Thierry Moreno with [facility] [place]. On heprin drip, aspirin, NTG patch to control cp as she states it is severe 07/17. On Metoprolol. Intolerant of statins. Discuss risks/benefits/alternative to [facility] and she is agreeable. Will consult [facility] for it. Keep NPO for it. (2) Essential hypertension: Code(s): I10 - Essential (primary) hypertension Status: Acute Assessment and Plan: Stable. (3) Dyslipidemia: Code(s): E78.5 - Hyperlipidemia, unspecified Status: Acute Assessment and Plan: Intolerant of statins. (4) Urinary tract infection: Code(s): N39.0 - Urinary tract infection, site not specified Status: Acute Assessment and Plan: On antibiotics. Subjective Date/time seen: 05/30/25 07:42 Interval history: She reports continues to have chest pressure and nausea/vomiting. No sob. Exam Const: General: cooperative, healthy appearing and comfortable Orientation/consciousness: oriented to person, oriented to place and oriented to time Resp: Auscultation: clear to auscultation bilaterally, no crackles, no rales, no rhonchi and no wheezes Cardio: Rate: regular rate Rhythm: regular rhythm Heart sounds: no murmurs Peripheral pulses: dorsalis pedis present Neuro: General: oriented to person, oriented to place and oriented to time Extrem: Right lower extremity: no edema Left lower extremity: no edema Objective Data Vital Signs Vital Signs: Vital Signs - 24 hr 05/29/25 07:45 05/29/25 07:50 05/29/25 08:11 Temperature Pulse Rate 74 84 86 Respiratory Rate 19 24 H Blood Pressure Pulse Oximetry 100 100 Oxygen Delivery 05/29/25 08:12 05/29/25 08:15 05/29/25 08:30 Temperature Pulse Rate 88 77 76 Respiratory Rate 18 25 H 22 H Blood Pressure 181/94 H Pulse Oximetry 100 100 100 Oxygen Delivery 05/29/25 08:32 05/29/25 08:45 05/29/25 09:08 Temperature Pulse Rate 78 78 75 Respiratory Rate 22 H 25 H 21 H Blood Pressure 181/90 H Pulse Oximetry 100 99 99 Oxygen Delivery 05/29/25 11:04 05/29/25 11:25 05/29/25 11:49 Temperature Pulse Rate 78 74 99 Respiratory Rate 18 19 15 Blood Pressure 150/71 H Pulse Oximetry 98 99 98 Oxygen Delivery 05/29/25 12:00 05/29/25 12:15 05/29/25 12:30 Temperature Pulse Rate 79 79 81 Respiratory Rate 21 H 20 18 Blood Pressure Pulse Oximetry 97 99 96 Oxygen Delivery 05/29/25 12:32 05/29/25 12:45 05/29/25 13:00 Temperature Pulse Rate 81 78 79 Respiratory Rate 18 23 H 18 Blood Pressure 153/80 H Pulse Oximetry 98 Oxygen Delivery 05/29/25 13:15 05/29/25 13:31 05/29/25 15:13 Temperature Pulse Rate 76 76 78 Respiratory Rate 20 18 17 Blood Pressure Pulse Oximetry 99 99 Oxygen Delivery 05/29/25 15:15 05/29/25 15:28 05/29/25 15:29 Temperature Pulse Rate 71 80 77 Respiratory Rate 17 18 Blood Pressure 154/74 H 154/74 H Pulse Oximetry 98 100 Oxygen Delivery 05/29/25 15:30 05/29/25 15:35 05/29/25 16:00 Temperature Pulse Rate 78 80 Respiratory Rate 22 H Blood Pressure Pulse Oximetry 99 Oxygen Delivery Room Air 05/29/25 16:00 05/29/25 16:00 05/29/25 16:16 Temperature 98.2 F Pulse Rate 73 75 77 Respiratory Rate 18 Blood Pressure 153/69 H 149/75 H Pulse Oximetry 99 Oxygen Delivery 05/29/25 18:00 05/29/25 18:00 05/29/25 18:00 Temperature Pulse Rate 122 H 68 74 Respiratory Rate 14 Blood Pressure 143/65 H Pulse Oximetry 99 Oxygen Delivery 05/29/25 20:00 05/29/25 20:00 05/29/25 20:00 Temperature 98.6 F Pulse Rate 74 74 76 Respiratory Rate 14 18 Blood Pressure 142/74 H Pulse Oximetry 95 94 Oxygen Delivery Room Air 05/29/25 20:00 05/29/25 22:00 05/29/25 22:00 Temperature Pulse Rate 66 78 78 Respiratory Rate 18 Blood Pressure 149/79 H 142/74 H 142/74 H Pulse Oximetry 95 Oxygen Delivery 05/29/25 22:00 05/30/25 00:00 05/30/25 00:00 Temperature Pulse Rate 78 78 78 Respiratory Rate 18 Blood Pressure Pulse Oximetry 95 Oxygen Delivery Room Air 05/30/25 00:00 05/30/25 00:00 05/30/25 02:00 Temperature Pulse Rate 78 78 76 Respiratory Rate 18 Blood Pressure 148/73 H 148/73 H Pulse Oximetry 94 Oxygen Delivery 05/30/25 02:00 05/30/25 02:00 05/30/25 03:51 Temperature 98.1 F Pulse Rate 76 76 82 Respiratory Rate 18 18 Blood Pressure 136/69 136/69 Pulse Oximetry 98 98 Oxygen Delivery Room Air 05/30/25 03:52 05/30/25 04:00 05/30/25 06:00 Temperature 98.2 F Pulse Rate 82 81 76 Respiratory Rate 18 Blood Pressure 140/67 Pulse Oximetry 94 Oxygen Delivery 05/30/25 06:00 05/30/25 06:00 05/30/25 07:32 Temperature 98.2 F 99.6 F Pulse Rate 77 84 80 Respiratory Rate 18 20 Blood Pressure 135/62 135/65 118/69 Pulse Oximetry 95 96 Oxygen Delivery Intake/Output Intake/Output: Intake & Output 05/27/25 05/28/25 05/29/25 05/30/25 23:59 23:59 23:59 23:59 Intake Total 1278.6 257.6 Output Total 300 400 Balance 978.6 -142.4 Meds/Results Medications: Active Medications Generic Name Dose Route Start Last Admin Trade Name Freq PRN Reason Stop Dose Admin Acetaminophen 650 mg 05/29/25 15:06 Acetaminophen 325 Mg Tablet PO Q4H PRN Mild Pain (1-3) or Fever Al Hydrox/Mg Hydrox/Simethicone 30 ml 05/29/25 21:26 05/29/25 21:41 Mag Hydrox/Al Hydrox/Simeth 30 Ml Udc PO 30 ml Q6H PRN Administration Indigestion Aspirin 81 mg 05/30/25 09:00 Aspirin 81 Mg Enteric Tablet PO QAM MY Dextrose 12.5 gm 05/29/25 15:07 Dextrose 50% 25 Gm/50 Ml Syringe IV PUSH PRN PRN Hypoglycemia Protocol Dextrose 12.5 gm 05/29/25 15:26 Dextrose 50% 25 Gm/50 Ml Syringe IV PUSH PRN PRN Hypoglycemia Protocol Ezetimibe 10 mg 05/30/25 09:00 Ezetimibe 10 Mg Tablet PO QAM MY Glucagon 1 mg 05/29/25 15:07 Glucagon For Inj 1 Mg Vial IM PRN PRN Hypoglycemia Protocol Glucose 15 gm 05/29/25 15:07 Glucose Oral Gel 15 Gm Of Glucse In 37.5 Gm Tube PO PRN PRN Hypoglycemia Protocol Heparin Sodium (Porcine) 4,000 units 05/29/25 12:03 05/29/25 21:37 Heparin Sodium 5,000 Units/Ml Vial IV PUSH 4,000 units PRN PRN Administration aPTT less than 55 seconds Heparin Sodium (Porcine) 3,000 units 05/29/25 12:03 Heparin Sodium 5,000 Units/Ml Vial IV PUSH PRN PRN aPTT 55 - 70 seconds Ceftriaxone Sodium 1 gm/ 50 mls @ 100 mls/hr 05/29/25 10:35 05/29/25 11:51 Sodium Chloride [facility] Heparin Sodium/Dextrose 25,000 units in 250 mls @ 12 mls/hr 05/29/25 12:05 05/30/25 05:28 Heparin Sodium/D5w 100 Units/Ml IV CONT 1,200 units/hr .[id number] MY 12 mls/hr Titration Protocol 1,200 UNITS/HR Nitroglycerin/Dextrose 50 mg in 250 mls @ 7.5 mls/hr 05/29/25 15:20 05/30/25 06:00 Nitroglycerin In 5% Dextrose 50 Mg IV CONT 25 mcg/min .Q24H MY 7.5 mls/hr Titration Protocol 25 MCG/MIN Dextrose 1,000 mls @ 100 mls/hr 05/29/25 15:07 Dextrose 5% 1,000 Ml IVPB PRN PRN Hypoglycemia Protocol Insulin Aspart 3 - 6 units 05/29/25 17:00 05/29/25 16:58 Insulin Aspart (*Bkc) 100 Units/Ml SUB-Q Not Given TIDWM [facility] Protocol Insulin Aspart 1 - 3 units 05/29/25 21:00 05/29/25 22:23 Insulin Aspart (*Bkc) 100 Units/Ml SUB-Q Not Given HS [facility] Protocol Metoprolol Succinate 25 mg 05/30/25 09:00 Metoprolol Succinate Ext Rel 25 Mg Tabcr PO QAM [facility] Morphine Sulfate 2 mg 05/29/25 17:31 Morphine Sulfate (*Crx) 2 Mg/Ml Inj IV PUSH Q4H PRN Pain Rated 4-6 Morphine Sulfate 4 mg 05/29/25 17:31 Morphine Sulfate (*Crx) 4 Mg/Ml Inj IV PUSH Q4H PRN Pain Rated 7-10 Ondansetron HCl 4 mg 05/29/25 21:26 05/30/25 04:30 Ondansetron Inj 4 Mg/2 Ml Vial IV PUSH 4 mg Q6H PRN Administration Nausea And Vomiting Pantoprazole Sodium 40 mg 05/29/25 21:30 05/29/25 21:38 Pantoprazole 40 Mg Tablet PO 40 mg Q12HR MY Administration Perflutren Lipid Microsphere 0 ml 05/29/25 12:55 Perflutren Lipid Microspheres 1.5 Ml Vial Diluted To 10 Ml Total Volume IV PUSH 06/01/25 12:55 ONCE PRN adequate visualization Protocol Polyethylene Glycol 17 gm 05/30/25 09:00 Polyethylene Glycol 3350 17 Gm Powd.Pack [facility] Results: ITS Impressions Chest X-Ray 05/29/25 07:40 IMPRESSION: 1: NO ACUTE CARDIOPULMONARY DISEASE. Abdomen/Pelvis CT 05/29/25 08:12 IMPRESSION: 1. No acute abdominal abnormality. 2: Cirrhosis of the liver with fatty infiltration. 3: Status post cholecystectomy with expected prominence of the bile ducts. Labs Labs: Laboratory Results - last 24 hr 05/29/25 05/29/25 05/29/25 07:00 08:48 09:31 WBC RBC Hgb Hct MCV MCH MCHC RDW Plt Count MPV Immature Gran % (Auto) Neut % (Auto) Lymph % (Auto) [place] % (Auto) Eos % (Auto) Baso % (Auto) Lymph # (Auto) [place] # (Auto) Eos # (Auto) Baso # (Auto) Abs Immat Gran (auto) Absolute Neuts (auto) Absolute Nucleated RBC Nucleated RBC % PT INR APTT Sodium Potassium Chloride Carbon Dioxide Anion Gap BUN Creatinine Estim Creat Clear Calc Estimated GFR Glucose POC Capillary Glucose Lactic Acid 2.4 H Calcium Phosphorus 2.7 Magnesium 1.9 Ferritin Troponin I NT-Pro-B Natriuret Pep 43 Triglycerides Cholesterol LDL Cholesterol Direct HDL Direct Urine Color Yellow Urine Appearance Clear Urine pH 8.5 Ur Specific [place] > 1.045 H Urine Protein Trace Urine Glucose (UA) Negative Urine Ketones Negative Ur Blood (Man) Negative Urine Nitrate Negative Urine Bilirubin Negative Urine Urobilinogen 1.0 Leukocyte Esterase Rfl 2+ H Urine RBC 0-2 Urine WBC 51-100 H Ur Squamous Epith Cells None seen Urine Bacteria None seen Urine Casts 0-2 Nasal MRSA (PCR) Hepatitis A IgM Ab Hep Bs Antigen Hep B Core IgM Ab Hepatitis C Ab Screen 05/29/25 05/29/25 05/29/25 10:37 11:25 12:54 WBC RBC Hgb Hct MCV MCH MCHC RDW Plt Count MPV Immature Gran % (Auto) Neut % (Auto) Lymph % (Auto) [place] % (Auto) Eos % (Auto) Baso % (Auto) Lymph # (Auto) [place] # (Auto) Eos # (Auto) Baso # (Auto) Abs Immat Gran (auto) Absolute Neuts (auto) Absolute Nucleated RBC Nucleated RBC % PT INR APTT Sodium Potassium Chloride Carbon Dioxide Anion Gap BUN Creatinine Estim Creat Clear Calc Estimated GFR Glucose POC Capillary Glucose Lactic Acid 1.0 Calcium Phosphorus Magnesium Ferritin Troponin I 0.544 H* D 1.470 H* D NT-Pro-B Natriuret Pep Triglycerides Cholesterol LDL Cholesterol Direct HDL Direct Urine Color Urine Appearance Urine pH Ur Specific [place] Urine Protein Urine Glucose (UA) Urine Ketones Ur Blood (Man) Urine Nitrate Urine Bilirubin Urine Urobilinogen Leukocyte Esterase Rfl Urine RBC Urine WBC Ur Squamous Epith Cells Urine Bacteria Urine Casts Nasal MRSA (PCR) Hepatitis A IgM Ab Hep Bs Antigen Hep B Core IgM Ab Hepatitis C Ab Screen 05/29/25 05/29/25 05/29/25 14:15 16:11 16:46 WBC 5.8 RBC 3.91 L Hgb 12.0 Hct 36.4 L MCV 93.1 MCH 30.7 MCHC 33.0 RDW 13.3 Plt Count 212 MPV 9.7 Immature Gran % (Auto) 0.5 Neut % (Auto) 70.5 Lymph % (Auto) 20.8 [place] % (Auto) 6.7 Eos % (Auto) 1.2 Baso % (Auto) 0.3 Lymph # (Auto) 1.20 [place] # (Auto) 0.4 Eos # (Auto) 0.1 Baso # (Auto) 0.0 Abs Immat Gran (auto) 0.03 Absolute Neuts (auto) 4.1 Absolute Nucleated RBC 0.000 Nucleated RBC % 0.0 PT 14.3 INR 1.1 APTT 30.9 Sodium Potassium Chloride Carbon Dioxide Anion Gap BUN Creatinine Estim Creat Clear Calc Estimated GFR Glucose POC Capillary Glucose 108 H Lactic Acid Calcium Phosphorus Magnesium Ferritin Troponin I NT-Pro-B Natriuret Pep Triglycerides Cholesterol LDL Cholesterol Direct HDL Direct Urine Color Urine Appearance Urine pH Ur Specific [place] Urine Protein Urine Glucose (UA) Urine Ketones Ur Blood (Man) Urine Nitrate Urine Bilirubin Urine Urobilinogen Leukocyte Esterase Rfl Urine RBC Urine WBC Ur Squamous Epith Cells Urine Bacteria Urine Casts Nasal MRSA (PCR) Not detected Hepatitis A IgM Ab Hep Bs Antigen Hep B Core IgM Ab Hepatitis C Ab Screen 05/29/25 05/30/25 05/30/25 20:33 04:27 04:27 WBC 5.4 RBC 3.81 L Hgb 11.8 L Hct 38.2 MCV 100.3 H D MCH 31.0 MCHC 30.9 L RDW 13.5 Plt Count 164 MPV 9.9 Immature Gran % (Auto) 0.4 Neut % (Auto) 60.9 Lymph % (Auto) 27.6 [place] % (Auto) 9.2 H Eos % (Auto) 1.5 Baso % (Auto) 0.4 Lymph # (Auto) 1.50 [place] # (Auto) 0.5 Eos # (Auto) 0.1 Baso # (Auto) 0.0 Abs Immat Gran (auto) 0.02 Absolute Neuts (auto) 3.3 Absolute Nucleated RBC 0.000 Nucleated RBC % 0.0 PT 14.8 H INR 1.2 APTT 30.3 79.1 H Cancelled Sodium Potassium Chloride Carbon Dioxide Anion Gap BUN Creatinine Estim Creat Clear Calc Estimated GFR Glucose POC Capillary Glucose Lactic Acid Calcium Phosphorus Magnesium Ferritin Troponin I 5.930 H* D NT-Pro-B Natriuret Pep Triglycerides Cholesterol LDL Cholesterol Direct HDL Direct Urine Color Urine Appearance Urine pH Ur Specific [place] Urine Protein Urine Glucose (UA) Urine Ketones Ur Blood (Man) Urine Nitrate Urine Bilirubin Urine Urobilinogen Leukocyte Esterase Rfl Urine RBC Urine WBC Ur Squamous Epith Cells Urine Bacteria Urine Casts Nasal MRSA (PCR) Hepatitis A IgM Ab Hep Bs Antigen Hep B Core IgM Ab Hepatitis C Ab Screen 05/30/25 05/30/25 05/30/25 04:29 04:40 04:40 WBC 7.4 RBC 3.64 L Hgb 11.2 L Hct 34.6 L MCV 95.1 D MCH 30.8 MCHC 32.4 RDW 13.4 Plt Count 178 MPV 9.8 Immature Gran % (Auto) 0.5 Neut % (Auto) 67.1 Lymph % (Auto) 23.5 [place] % (Auto) 7.0 Eos % (Auto) 1.8 Baso % (Auto) 0.1 L Lymph # (Auto) 1.74 [place] # (Auto) 0.5 Eos # (Auto) 0.1 Baso # (Auto) 0.0 Abs Immat Gran (auto) 0.04 H Absolute Neuts (auto) 5.0 Absolute Nucleated RBC 0.000 Nucleated RBC % 0.0 PT INR APTT Sodium 131 L Potassium 3.7 Chloride 101 Carbon Dioxide 24 Anion Gap 6 BUN 6 L Creatinine 0.84 Estim Creat Clear Calc 60 Estimated GFR > 60 Glucose 122 H POC Capillary Glucose Lactic Acid Calcium 9.0 Phosphorus Magnesium 2.1 Ferritin 222.00 Troponin I 7.270 H* Cancelled NT-Pro-B Natriuret Pep Triglycerides 122 Cholesterol 237 H LDL Cholesterol Direct 125 HDL Direct 57 Urine Color Urine Appearance Urine pH Ur Specific [place] Urine Protein Urine Glucose (UA) Urine Ketones Ur Blood (Man) Urine Nitrate Urine Bilirubin Urine Urobilinogen Leukocyte Esterase Rfl Urine RBC Urine WBC Ur Squamous Epith Cells Urine Bacteria Urine Casts Nasal MRSA (PCR) Hepatitis A IgM Ab Negative Hep Bs Antigen Negative Hep B Core IgM Ab Negative Hepatitis C Ab Screen Negative 05/30/25 07:28 WBC RBC Hgb Hct MCV MCH MCHC RDW Plt Count MPV Immature Gran % (Auto) Neut % (Auto) Lymph % (Auto) [place] % (Auto) Eos % (Auto) Baso % (Auto) Lymph # (Auto) [place] # (Auto) Eos # (Auto) Baso # (Auto) Abs Immat Gran (auto) Absolute Neuts (auto) Absolute Nucleated RBC Nucleated RBC % PT INR APTT Sodium Potassium Chloride Carbon Dioxide Anion Gap BUN Creatinine Estim Creat Clear Calc Estimated GFR Glucose POC Capillary Glucose 118 H Lactic Acid Calcium Phosphorus Magnesium Ferritin Troponin I NT-Pro-B Natriuret Pep Triglycerides Cholesterol LDL Cholesterol Direct HDL Direct Urine Color Urine Appearance Urine pH Ur Specific [place] Urine Protein Urine Glucose (UA) Urine Ketones Ur Blood (Man) Urine Nitrate Urine Bilirubin Urine Urobilinogen Leukocyte Esterase Rfl Urine RBC Urine WBC Ur Squamous Epith Cells Urine Bacteria Urine Casts Nasal MRSA (PCR) Hepatitis A IgM Ab Hep Bs Antigen Hep B Core IgM Ab Hepatitis C Ab Screen
[2025-05-30] MEDS: PANTOPRAZOLE 40 MG TABLET PO ×2 (08:44→22:57)
[2025-05-30] MEDS: cefTRIAXone 1 GM in SODIUM CHLORIDE 0.9% IV 50 ML 100 ML IVPB (08:45)
--- NOTE | 2025-05-30 09:44 | P.CONIN_ITS ---
Assessment and Plan Assessment and plan (1) NSTEMI (non-ST elevated myocardial infarction): Code(s): I21.4 - Non-ST elevation (NSTEMI) myocardial infarction Status: Acute Assessment and Plan: Patient presented with chest pain radiating to the left arm, 9/10 in intensity, associated with nausea, vomiting, shortness of breath -troponins went from<0.012 to 7.270 -EKG did not show any ST elevation -nitroglycerin and heparin infusion for persistent chest pain -discussed with Cardiology, will evaluate and likely patient will require ischemic workup -05/29: Echocardiogram showed EF of 60-65%, grade 1 diastolic dysfunction mild pulmonary hypertension with RVSP of 41 mmHg, -patient denies any alcohol, tobacco or illicit drug use (2) Chest pain: Code(s): R07.9 - Chest pain, unspecified Status: Acute Assessment and Plan: As above (3) Diabetes mellitus: Code(s): E11.9 - Type 2 diabetes mellitus without complications Status: Acute Assessment and Plan: Continue Accu-Cheks and sliding scale insulin -hemoglobin A1c is pending (4) Asthma: Code(s): J45.909 - Unspecified asthma, uncomplicated Status: Acute Assessment and Plan: Continue Advair (5) Hypokalemia: Code(s): E87.6 - Hypokalemia Status: Acute Assessment and Plan: Potassium is normalized after being replaced Plan DVT prophylaxis: Heparin infusion Stress ulcer prophylaxis: Not indicated Nutrition: NPO Code Status: Full code Critical Care Time Spent: 48 minutes Due to a high probability of clinically significant, life threatening deterioration, the patient required my highest level of preparedness to intervene emergently and I personally spent this critical care time directly and personally managing the patient. This critical care time included obtaining a history; examining the patient; pulse oximetry; ordering and review of studies; arranging urgent treatment with development of a management plan; evaluation of patient's response to treatment; frequent reassessment; and discussions with other providers. It was exclusive of separately billable procedures and treating other patients and teaching time. Please see Assessment and Plan section and the rest of the note for further information on patient assessment and treatment This dictation may have been done utilizing a voice recognition system. Attempts have been made to correct errors. However, there may be uncorrected grammatical, spelling, and recognitions errors present. 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 His chest pain was 9/10 in intensity. Initial troponins were negative but have gone up to 7.27. Patient was started on hip heparin and nitroglycerin infusion, heart care group was consulted for possible left heart catheterization. Echocardiogram has been ordered to look for wall motion abnormalities. Patient was transferred to the ICU for further management Patient was seen and examined this morning in the ICU, complains of chest pain 4-5/10 in intensity, complains of mild nausea but no vomiting. Remains on nitroglycerin and heparin infusion. Hemodynamically stable, on room air with adequate O2 sat, afebrile, adequate urine output. Patient denies any alcohol, tobacco illicit drug use Review of Systems 2 Review of Systems: All systems reviewed & are unremarkable except as noted in HPI and below PMFSH Past Medical History Medical History Shortness of Breath Type 2 diabetes mellitus GERD (gastroesophageal reflux disease) Essential hypertension Asthma Family History Family History Mother Cerebrovascular accident, Onset Age: 70 Family history of rheumatoid arthritis, Onset Age: 70 Grandparent Family history of malignant neoplasm of ovary, Onset Age: 82 Father Patient's father is in good health Other Diabetes mellitus Hypertension Social History Social History Smoking packs per day: 0 Smoking cigarettes per day: 0.0 Years smoked: 0 Smoking pack-years: 0.00 Smoking status: Never smoker Second hand tobacco smoke exposure: Yes (childhood) Alcohol intake: never Substance use: never Substance use type: does not use Do You Feel Safe in your Home?: Yes Lack of Transportation: No Lack of Food: Never True Current Housing: I Have Housing Concerned About Future Housing: No Difficulty Paying Gas/Electric Bills: No Difficulty Paying for Meds: No Currently Unemployed: No Education: High School Diploma/GED Difficulty w/ Childcare or Family Care: No Living arrangements: alone Spiritual care concerns: No Meds Home Medications and Allergies Home Medications ?Medication ?Instructions ?Recorded ?Confirmed ?Type cyanocobalamin (vitamin B-12) 2,500 mcg sublingual DAILY 03/06/20 05/29/25 History 2,500 mcg sublingual tablet (Vitamin B-12) aspirin 81 mg tablet,delayed 81 mg PO DAILY 04/28/20 05/29/25 History release (Adult Aspirin Regimen) hydrochlorothiazide 25 mg tablet 25 mg PO DAILY 04/28/20 05/29/25 History metformin 850 mg tablet 850 mg PO BID 04/28/20 05/29/25 History ezetimibe 10 mg tablet 10 mg PO DAILY 05/01/20 05/29/25 History memantine 10 mg tablet 10 mg PO BID 05/01/20 05/29/25 History metoprolol succinate 200 mg 100 mg PO DAILY 05/01/20 05/29/25 History tablet,extended release 24 hr fluticasone propionate 50 1 spray intranasal BID #16 grams 08/02/22 05/29/25 Rx mcg/actuation nasal spray,suspension (Flonase Allergy Relief) fluticasone furoate 100 1 inh inhalation DAILY 03/28/23 05/29/25 History mcg-vilanterol 25 mcg/dose inhalation powder (Breo Ellipta) ascorbate calcium (vitamin C) 500 500 mg PO DAILY 08/23/23 05/29/25 History mg tablet vitamin E (dl, acetate) 45 mg (100 45 mg PO DAILY 08/23/23 05/29/25 History unit) capsule semaglutide 0.25 mg or 0.5 mg (2 0.25 mg subcut WEEKLY 10/10/23 05/29/25 History mg/3 mL) subcutaneous pen injector (OzCartasiteic) donepezil 10 mg tablet 10 mg PO DAILY 05/29/25 05/29/25 History Allergies Allergy/AdvReac Type Severity Reaction Status Date / Time egg Allergy Unknown Rash Verified 05/29/25 07:55 latex Allergy Unknown Hives Verified 05/29/25 07:55 adhesive Allergy Rash Verified 05/29/25 07:55 Vital Signs Vital Signs - 24 hr 05/29/25 11:04 05/29/25 11:25 05/29/25 11:49 Temperature Pulse Rate 78 74 99 Respiratory Rate 18 19 15 Blood Pressure 150/71 H Pulse Oximetry 98 99 98 Oxygen Delivery 05/29/25 12:00 05/29/25 12:15 05/29/25 12:30 Temperature Pulse Rate 79 79 81 Respiratory Rate 21 H 20 18 Blood Pressure Pulse Oximetry 97 99 96 Oxygen Delivery 05/29/25 12:32 05/29/25 12:45 05/29/25 13:00 Temperature Pulse Rate 81 78 79 Respiratory Rate 18 23 H 18 Blood Pressure 153/80 H Pulse Oximetry 98 Oxygen Delivery 05/29/25 13:15 05/29/25 13:31 05/29/25 15:13 Temperature Pulse Rate 76 76 78 Respiratory Rate 20 18 17 Blood Pressure Pulse Oximetry 99 99 Oxygen Delivery 05/29/25 15:15 05/29/25 15:28 05/29/25 15:29 Temperature Pulse Rate 71 80 77 Respiratory Rate 17 18 Blood Pressure 154/74 H 154/74 H Pulse Oximetry 98 100 Oxygen Delivery 05/29/25 15:30 05/29/25 15:35 05/29/25 16:00 Temperature Pulse Rate 78 80 Respiratory Rate 22 H Blood Pressure Pulse Oximetry 99 Oxygen Delivery Room Air 05/29/25 16:00 05/29/25 16:00 05/29/25 16:16 Temperature 98.2 F Pulse Rate 73 75 77 Respiratory Rate 18 Blood Pressure 153/69 H 149/75 H Pulse Oximetry 99 Oxygen Delivery 05/29/25 18:00 05/29/25 18:00 05/29/25 18:00 Temperature Pulse Rate 122 H 68 74 Respiratory Rate 14 Blood Pressure 143/65 H Pulse Oximetry 99 Oxygen Delivery 05/29/25 20:00 05/29/25 20:00 05/29/25 20:00 Temperature 98.6 F Pulse Rate 74 74 76 Respiratory Rate 14 18 Blood Pressure 142/74 H Pulse Oximetry 95 94 Oxygen Delivery Room Air 05/29/25 20:00 05/29/25 22:00 05/29/25 22:00 Temperature Pulse Rate 66 78 78 Respiratory Rate 18 Blood Pressure 149/79 H 142/74 H 142/74 H Pulse Oximetry 95 Oxygen Delivery 05/29/25 22:00 05/30/25 00:00 05/30/25 00:00 Temperature Pulse Rate 78 78 78 Respiratory Rate 18 Blood Pressure Pulse Oximetry 95 Oxygen Delivery Room Air 05/30/25 00:00 05/30/25 00:00 05/30/25 02:00 Temperature Pulse Rate 78 78 76 Respiratory Rate 18 Blood Pressure 148/73 H 148/73 H Pulse Oximetry 94 Oxygen Delivery 05/30/25 02:00 05/30/25 02:00 05/30/25 03:51 Temperature 98.1 F Pulse Rate 76 76 82 Respiratory Rate 18 18 Blood Pressure 136/69 136/69 Pulse Oximetry 98 98 Oxygen Delivery Room Air 05/30/25 03:52 05/30/25 04:00 05/30/25 06:00 Temperature 98.2 F Pulse Rate 82 81 76 Respiratory Rate 18 Blood Pressure 140/67 Pulse Oximetry 94 Oxygen Delivery 05/30/25 06:00 05/30/25 06:00 05/30/25 07:32 Temperature 98.2 F 98.8 F Pulse Rate 77 84 80 Respiratory Rate 18 20 Blood Pressure 135/62 135/65 118/69 Pulse Oximetry 95 96 Oxygen Delivery 05/30/25 08:56 05/30/25 08:58 Temperature Pulse Rate 75 74 Respiratory Rate Blood Pressure 132/77 Pulse Oximetry Oxygen Delivery Exam 2 Narrative: General: Pleasant female in no acute distress HEENT:? Pupils equal and reactive, sclerae is clear Neck:? Supple Respiratory:? Clear to auscultation bilaterally, no wheezing, adequate air entry Cardiac:? S1-S2 normal, regular rate and rhythm Abdomen:? Soft, nontender, nondistended, normoactive bowel sounds Extremities:? No edema, palpable pedal pulses Neuro:? Patient is awake, alert, oriented x3, nonfocal, answers to questions appropriately and follows simple commands in all extremities Skin:? No skin lesions noted Psych:? Normal mentation after Results Labs 05/30/25 04:40 05/30/25 04:40 Labs: Short CBC 05/29/25 05/29/25 05/30/25 Range/Units 14:15 20:33 04:40 WBC 5.8 5.4 7.4 (4.5-10.0) K/mm3 Hgb 12.0 11.8 L 11.2 L (12.0-15.0) g/dL Hct 36.4 L 38.2 34.6 L (37.0-47.0) % Plt Count 212 164 178 (150-375) k/mm3 BMP 05/30/25 04:40 Sodium 131 L Potassium 3.7 Chloride 101 Carbon Dioxide 24 BUN 6 L Creatinine 0.84 Glucose 122 H Calcium 9.0 Cardiac Enzymes 05/29/25 05/29/25 05/29/25 Range/Units 10:37 12:54 20:33 Troponin I 0.544 H* D 1.470 H* D 5.930 H* D (0.000-0.034) ng/mL 05/30/25 05/30/25 Range/Units 04:40 04:40 Troponin I 7.270 H* Cancelled (0.000-0.034) ng/mL Urine 05/29/25 Range/Units 09:31 Urine Color Yellow (Yellow) Urine Appearance Clear (Clear) Urine pH 8.5 (5.0-9.0) Ur Specific [place] > 1.045 H (1.001-1.035) Urine Protein Trace (Negative) mg/dL Urine Glucose (UA) Negative (Negative) mg/dL Quality VTE Prophylaxis VTE prophylaxis: pharmacologic ordered Hospitalist MIPS Advance Care Plan I have confirmed that the patient's Advanced Care Plan is present, code status is documented, or surrogate decision maker is listed in patient medical record.: Yes Medication Reconciliation I have utilized all available resources to obtain, update and review the patients current medications (includes all prescriptions, OTC, herbals, cannabis, and nutritional supplements).: Yes
[2025-05-30] MEDS: HEPARIN SOD/D5W 100 UNITS/ML 25,000 UNITS/250 ML BAG 12 UNITS IV CONT (11:19)
--- NOTE | 2025-05-30 11:36 | WPDHPUPDATE1 ---
History and Physical Update Update Date/Time: 05/30/25 10:36 History and Physical has been reviewed, including an updated exam of the patient. There are NO changes in the patient's condition. Risks, benefits, and alternatives have been discussed and questions answered. Patient agrees to proceed with procedure.
--- NOTE | 2025-05-30 11:36 | WPDMODSED ---
Moderate Sedation Note-Pt Data Patient Data Allergies Allergy/AdvReac Type Severity Reaction Status Date / Time egg Allergy Unknown Rash Verified 05/29/25 07:55 latex Allergy Unknown Hives Verified 05/29/25 07:55 adhesive Allergy Rash Verified 05/29/25 07:55 Home Medications ?Medication ?Instructions ?Recorded ?Confirmed ?Type cyanocobalamin (vitamin B-12) 2,500 mcg sublingual DAILY 03/06/20 05/29/25 History 2,500 mcg sublingual tablet (Vitamin B-12) aspirin 81 mg tablet,delayed 81 mg PO DAILY 04/28/20 05/29/25 History release (Adult Aspirin Regimen) hydrochlorothiazide 25 mg tablet 25 mg PO DAILY 04/28/20 05/29/25 History metformin 850 mg tablet 850 mg PO BID 04/28/20 05/29/25 History ezetimibe 10 mg tablet 10 mg PO DAILY 05/01/20 05/29/25 History memantine 10 mg tablet 10 mg PO BID 05/01/20 05/29/25 History metoprolol succinate 200 mg 100 mg PO DAILY 05/01/20 05/29/25 History tablet,extended release 24 hr fluticasone propionate 50 1 spray intranasal BID #16 grams 08/02/22 05/29/25 Rx mcg/actuation nasal spray,suspension (Flonase Allergy Relief) fluticasone furoate 100 1 inh inhalation DAILY 03/28/23 05/29/25 History mcg-vilanterol 25 mcg/dose inhalation powder (Breo Ellipta) ascorbate calcium (vitamin C) 500 500 mg PO DAILY 08/23/23 05/29/25 History mg tablet vitamin E (dl, acetate) 45 mg (100 45 mg PO DAILY 08/23/23 05/29/25 History unit) capsule semaglutide 0.25 mg or 0.5 mg (2 0.25 mg subcut WEEKLY 10/10/23 05/29/25 History mg/3 mL) subcutaneous pen injector (Ozempic) donepezil 10 mg tablet 10 mg PO DAILY 05/29/25 05/29/25 History Current Medications: Active Medications Acetaminophen (Acetaminophen 325 Mg Tablet) 650 mg PO Q4H PRN PRN Reason: Mild Pain (1-3) or Fever Al Hydrox/Mg Hydrox/Simethicone (Mag Hydrox/Al Hydrox/Simeth 30 Ml Udc) 30 ml PO Q6H PRN PRN Reason: Indigestion Last Admin: 05/29/25 21:41 Dose: 30 ml Aspirin (Aspirin 81 Mg Enteric Tablet) 81 mg PO [facility] Last Admin: 05/30/25 08:57 Dose: Not Given Dextrose (Dextrose 50% 25 Gm/50 Ml Syringe) 12.5 gm IV PUSH PRN PRN; Protocol PRN Reason: Hypoglycemia Dextrose (Dextrose 50% 25 Gm/50 Ml Syringe) 12.5 gm IV PUSH PRN PRN; Protocol PRN Reason: Hypoglycemia Ezetimibe (Ezetimibe 10 Mg Tablet) 10 mg PO [facility] Last Admin: 05/30/25 08:58 Dose: Not Given Glucagon (Glucagon For Inj 1 Mg Vial) 1 mg IM PRN PRN; Protocol PRN Reason: Hypoglycemia Glucose (Glucose Oral Gel 15 Gm Of Glucse In 37.5 Gm Tube) 15 gm PO PRN PRN; Protocol PRN Reason: Hypoglycemia Heparin Sodium (Porcine) (Heparin Sodium 5,000 Units/Ml Vial) 4,000 units IV PUSH PRN PRN PRN Reason: aPTT less than 55 seconds Last Admin: 05/29/25 21:37 Dose: 4,000 units Heparin Sodium (Porcine) (Heparin Sodium 5,000 Units/Ml Vial) 3,000 units IV PUSH PRN PRN PRN Reason: aPTT 55 - 70 seconds Ceftriaxone Sodium 1 gm/ (Sodium Chloride) 50 mls @ 100 mls/hr IVPB [facility] Last Admin: 05/30/25 08:45 Dose: 100 mls/hr Heparin Sodium/Dextrose (Heparin Sodium/D5w 100 Units/Ml) 25,000 units in 250 mls @ 12 mls/hr IV CONT .[id number] [facility]; Protocol Last Admin: 05/30/25 11:19 Dose: 1,200 units/hr, 12 mls/hr Nitroglycerin/Dextrose (Nitroglycerin In 5% Dextrose 50 Mg) 50 mg in 250 mls @ 9 mls/hr IV CONT .Q24H [facility]; Protocol Last Titration: 05/30/25 08:56 Dose: 30 mcg/min, 9 mls/hr Dextrose (Dextrose 5% 1,000 Ml) 1,000 mls @ 100 mls/hr IVPB PRN PRN; Protocol PRN Reason: Hypoglycemia Insulin Aspart (Insulin Aspart (*Bkc) 100 Units/Ml) 3 - 6 units SUB-Q TIDWM [facility]; Protocol Last Admin: 05/30/25 08:45 Dose: Not Given Insulin Aspart (Insulin Aspart (*Bkc) 100 Units/Ml) 1 - 3 units SUB-Q HS [facility]; Protocol Last Admin: 05/29/25 22:23 Dose: Not Given Metoprolol Succinate (Metoprolol Succinate Ext Rel 25 Mg Tabcr) 25 mg PO QAM [facility] Last Admin: 05/30/25 08:58 Dose: Not Given Morphine Sulfate (Morphine Sulfate (*Crx) 2 Mg/Ml Inj) 2 mg IV PUSH Q4H PRN PRN Reason: Pain Rated 4-6 Morphine Sulfate (Morphine Sulfate (*Crx) 4 Mg/Ml Inj) 4 mg IV PUSH Q4H PRN PRN Reason: Pain Rated 7-10 Ondansetron HCl (Ondansetron Inj 4 Mg/2 Ml Vial) 4 mg IV PUSH Q6H PRN PRN Reason: Nausea And Vomiting Last Admin: 05/30/25 11:19 Dose: 4 mg Pantoprazole Sodium (Pantoprazole 40 Mg Tablet) 40 mg PO Q12HR MY Last Admin: 05/30/25 08:44 Dose: 40 mg Perflutren Lipid Microsphere (Perflutren Lipid Microspheres 1.5 Ml Vial Diluted To 10 Ml Total Volume) 0 ml IV PUSH ONCE PRN; Protocol PRN Reason: adequate visualization Stop: 06/01/25 12:55 Polyethylene Glycol (Polyethylene Glycol 3350 17 Gm Powd.Pack) 17 gm PO QAM [facility] Last Admin: 05/30/25 08:44 Dose: 17 gm Fluticasone/Salmeterol (Fluticasone/Salmeterol 115-21 Mcg Inhaler 1 Puff) 2 puff INHALATION Q12HRT [facility] Sedation/Anesthesia: No previous sedation/anesthesia problems (including family history). [facility] Past Medical History Medical History Shortness of Breath Type 2 diabetes mellitus GERD (gastroesophageal reflux disease) Essential hypertension Asthma Family History Family History Mother Cerebrovascular accident, Onset Age: 70 Family history of rheumatoid arthritis, Onset Age: 70 Grandparent Family history of malignant neoplasm of ovary, Onset Age: 82 Father Patient's father is in good health Other Diabetes mellitus Hypertension Social History Social History Smoking packs per day: 0 Smoking cigarettes per day: 0.0 Years smoked: 0 Smoking pack-years: 0.00 Smoking status: Never smoker Second hand tobacco smoke exposure: Yes (childhood) Alcohol intake: never Substance use: never Substance use type: does not use Do You Feel Safe in your Home?: Yes Lack of Transportation: No Lack of Food: Never True Current Housing: I Have Housing Concerned About Future Housing: No Difficulty Paying Gas/Electric Bills: No Difficulty Paying for Meds: No Currently Unemployed: No Education: High School Diploma/GED Difficulty w/ Childcare or Family Care: No Living arrangements: alone Spiritual care concerns: No Mod Sed Physical Exam Physical Exam Pre Procedural Exam: Normal: Lungs, Heart Size, Heart Rate and Heart Rhythm Hours since solid foods: 12 Hours since liquid intake: 12 Mallampati Classification: class II Internal Medicine - PN: Obj Da Vital Signs Vital Signs: Vital Signs - 24 hr 05/29/25 11:49 05/29/25 12:00 05/29/25 12:15 Temperature Pulse Rate 99 79 79 Respiratory Rate 15 21 H 20 Blood Pressure 150/71 H Pulse Oximetry 98 97 99 Oxygen Delivery 05/29/25 12:30 05/29/25 12:32 05/29/25 12:45 Temperature Pulse Rate 81 81 78 Respiratory Rate 18 18 23 H Blood Pressure 153/80 H Pulse Oximetry 96 98 Oxygen Delivery 05/29/25 13:00 05/29/25 13:15 05/29/25 13:31 Temperature Pulse Rate 79 76 76 Respiratory Rate 18 20 18 Blood Pressure Pulse Oximetry 99 Oxygen Delivery 05/29/25 15:13 05/29/25 15:15 05/29/25 15:28 Temperature Pulse Rate 78 71 80 Respiratory Rate 17 17 Blood Pressure 154/74 H Pulse Oximetry 99 98 Oxygen Delivery 05/29/25 15:29 05/29/25 15:30 05/29/25 15:35 Temperature Pulse Rate 77 78 80 Respiratory Rate 18 22 H Blood Pressure 154/74 H Pulse Oximetry 100 99 Oxygen Delivery 05/29/25 16:00 05/29/25 16:00 05/29/25 16:00 Temperature 36.8 C Pulse Rate 73 75 Respiratory Rate 18 Blood Pressure 153/69 H Pulse Oximetry 99 Oxygen Delivery Room Air 05/29/25 16:16 05/29/25 18:00 05/29/25 18:00 Temperature Pulse Rate 77 122 H 68 Respiratory Rate 14 Blood Pressure 149/75 H Pulse Oximetry 99 Oxygen Delivery 05/29/25 18:00 05/29/25 20:00 05/29/25 20:00 Temperature Pulse Rate 74 74 74 Respiratory Rate 14 Blood Pressure 143/65 H Pulse Oximetry 95 Oxygen Delivery Room Air 05/29/25 20:00 05/29/25 20:00 05/29/25 22:00 Temperature 37.0 C Pulse Rate 76 66 78 Respiratory Rate 18 Blood Pressure 142/74 H 149/79 H 142/74 H Pulse Oximetry 94 Oxygen Delivery 05/29/25 22:00 05/29/25 22:00 05/30/25 00:00 Temperature Pulse Rate 78 78 78 Respiratory Rate 18 18 Blood Pressure 142/74 H Pulse Oximetry 95 95 Oxygen Delivery Room Air 05/30/25 00:00 05/30/25 00:00 05/30/25 00:00 Temperature Pulse Rate 78 78 78 Respiratory Rate 18 Blood Pressure 148/73 H 148/73 H Pulse Oximetry 94 Oxygen Delivery 05/30/25 02:00 05/30/25 02:00 05/30/25 02:00 Temperature 36.7 C Pulse Rate 76 76 76 Respiratory Rate 18 Blood Pressure 136/69 136/69 Pulse Oximetry 98 Oxygen Delivery 05/30/25 03:51 05/30/25 03:52 05/30/25 04:00 Temperature 36.8 C Pulse Rate 82 82 81 Respiratory Rate 18 18 Blood Pressure 140/67 Pulse Oximetry 98 94 Oxygen Delivery Room Air 05/30/25 06:00 05/30/25 06:00 05/30/25 06:00 Temperature 36.8 C Pulse Rate 76 77 84 Respiratory Rate 18 Blood Pressure 135/62 135/65 Pulse Oximetry 95 Oxygen Delivery 05/30/25 07:32 05/30/25 08:00 05/30/25 08:00 Temperature 37.1 C Pulse Rate 80 83 Respiratory Rate 20 Blood Pressure 118/69 Pulse Oximetry 96 96 Oxygen Delivery Room Air 05/30/25 08:56 05/30/25 08:58 05/30/25 09:46 Temperature Pulse Rate 75 74 Respiratory Rate Blood Pressure 132/77 Pulse Oximetry 93 Oxygen Delivery Room Air 05/30/25 10:00 Temperature Pulse Rate 79 Respiratory Rate Blood Pressure Pulse Oximetry Oxygen Delivery Intake/Output Intake/Output: Intake & Output 05/27/25 05/28/25 05/29/25 05/30/25 23:59 23:59 23:59 23:59 Intake Total 1278.6 349.8 Output Total 300 400 Balance 978.6 -50.2 Meds/Results Medications: Active Medications Generic Name Dose Route Start Last Admin Trade Name Freq PRN Reason Stop Dose Admin Acetaminophen 650 mg 05/29/25 15:06 Acetaminophen 325 Mg Tablet PO Q4H PRN Mild Pain (1-3) or Fever Al Hydrox/Mg Hydrox/Simethicone 30 ml 05/29/25 21:26 05/29/25 21:41 Mag Hydrox/Al Hydrox/Simeth 30 Ml Udc PO 30 ml Q6H PRN Administration Indigestion Aspirin 81 mg 05/30/25 09:00 05/30/25 08:57 Aspirin 81 Mg Enteric Tablet PO Not Given QAM MY Dextrose 12.5 gm 05/29/25 15:07 Dextrose 50% 25 Gm/50 Ml Syringe IV PUSH PRN PRN Hypoglycemia Protocol Dextrose 12.5 gm 05/29/25 15:26 Dextrose 50% 25 Gm/50 Ml Syringe IV PUSH PRN PRN Hypoglycemia Protocol Ezetimibe 10 mg 05/30/25 09:00 05/30/25 08:58 Ezetimibe 10 Mg Tablet PO Not Given QAM MY Glucagon 1 mg 05/29/25 15:07 Glucagon For Inj 1 Mg Vial IM PRN PRN Hypoglycemia Protocol Glucose 15 gm 05/29/25 15:07 Glucose Oral Gel 15 Gm Of Glucse In 37.5 Gm Tube PO PRN PRN Hypoglycemia Protocol Heparin Sodium (Porcine) 4,000 units 05/29/25 12:03 05/29/25 21:37 Heparin Sodium 5,000 Units/Ml Vial IV PUSH 4,000 units PRN PRN Administration aPTT less than 55 seconds Heparin Sodium (Porcine) 3,000 units 05/29/25 12:03 Heparin Sodium 5,000 Units/Ml Vial IV PUSH PRN PRN aPTT 55 - 70 seconds Ceftriaxone Sodium 1 gm/ 50 mls @ 100 mls/hr 05/29/25 10:35 05/30/25 08:45 Sodium Chloride IVPB 100 mls/hr QAM MY Administration Heparin Sodium/Dextrose 25,000 units in 250 mls @ 12 mls/hr 05/29/25 12:05 05/30/25 11:19 Heparin Sodium/D5w 100 Units/Ml IV CONT 1,200 units/hr .[id number] MY 12 mls/hr Administration Protocol 1,200 UNITS/HR Nitroglycerin/Dextrose 50 mg in 250 mls @ 9 mls/hr 05/29/25 15:20 05/30/25 08:56 Nitroglycerin In 5% Dextrose 50 Mg IV CONT 30 mcg/min .Q24H MY 9 mls/hr Titration Protocol 30 MCG/MIN Dextrose 1,000 mls @ 100 mls/hr 05/29/25 15:07 Dextrose 5% 1,000 Ml IVPB PRN PRN Hypoglycemia Protocol Insulin Aspart 3 - 6 units 05/29/25 17:00 05/30/25 08:45 Insulin Aspart (*Bkc) 100 Units/Ml SUB-Q Not Given TIDWM [facility] Protocol Insulin Aspart 1 - 3 units 05/29/25 21:00 05/29/25 22:23 Insulin Aspart (*Bkc) 100 Units/Ml SUB-Q Not Given HS [facility] Protocol Metoprolol Succinate 25 mg 05/30/25 09:00 05/30/25 08:58 Metoprolol Succinate Ext Rel 25 Mg Tabcr PO Not Given QAM [facility] Morphine Sulfate 2 mg 05/29/25 17:31 Morphine Sulfate (*Crx) 2 Mg/Ml Inj IV PUSH Q4H PRN Pain Rated 4-6 Morphine Sulfate 4 mg 05/29/25 17:31 Morphine Sulfate (*Crx) 4 Mg/Ml Inj IV PUSH Q4H PRN Pain Rated 7-10 Ondansetron HCl 4 mg 05/29/25 21:26 05/30/25 11:19 Ondansetron Inj 4 Mg/2 Ml Vial IV PUSH 4 mg Q6H PRN Administration Nausea And Vomiting Pantoprazole Sodium 40 mg 05/29/25 21:30 05/30/25 08:44 Pantoprazole 40 Mg Tablet PO 40 mg Q12HR MY Administration Perflutren Lipid Microsphere 0 ml 05/29/25 12:55 Perflutren Lipid Microspheres 1.5 Ml Vial Diluted To 10 Ml Total Volume IV PUSH 06/01/25 12:55 ONCE PRN adequate visualization Protocol Polyethylene Glycol 17 gm 05/30/25 09:00 05/30/25 08:44 Polyethylene Glycol 3350 17 Gm Powd.Pack PO 17 gm QAM MY Administration Fluticasone/Salmeterol 2 puff 05/30/25 20:00 Fluticasone/Salmeterol 115-21 Mcg Inhaler 1 Puff INHALATION Q12HRT [facility] Radiology Results: ITS Impressions Chest X-Ray 05/29/25 07:40 IMPRESSION: 1: NO ACUTE CARDIOPULMONARY DISEASE. Abdomen/Pelvis CT 05/29/25 08:12 IMPRESSION: 1. No acute abdominal abnormality. 2: Cirrhosis of the liver with fatty infiltration. 3: Status post cholecystectomy with expected prominence of the bile ducts. Labs 05/30/25 04:40 05/30/25 04:40 Labs: Laboratory Results - last 24 hr 05/29/25 05/29/25 05/29/25 07:00 11:25 12:54 WBC RBC Hgb Hct MCV MCH MCHC RDW Plt Count MPV Immature Gran % (Auto) Neut % (Auto) Lymph % (Auto) [place] % (Auto) Eos % (Auto) Baso % (Auto) Lymph # (Auto) [place] # (Auto) Eos # (Auto) Baso # (Auto) Abs Immat Gran (auto) Absolute Neuts (auto) Absolute Nucleated RBC Nucleated RBC % PT INR APTT Sodium Potassium Chloride Carbon Dioxide Anion Gap BUN Creatinine Estim Creat Clear Calc Estimated GFR Glucose POC Capillary Glucose Lactic Acid 1.0 Calcium Phosphorus 2.7 Magnesium 1.9 Ferritin Troponin I 1.470 H* D Triglycerides Cholesterol LDL Cholesterol Direct HDL Direct Nasal MRSA (PCR) Hepatitis A IgM Ab Hep Bs Antigen Hep B Core IgM Ab Hepatitis C Ab Screen 05/29/25 05/29/25 05/29/25 14:15 16:11 16:46 WBC 5.8 RBC 3.91 L Hgb 12.0 Hct 36.4 L MCV 93.1 MCH 30.7 MCHC 33.0 RDW 13.3 Plt Count 212 MPV 9.7 Immature Gran % (Auto) 0.5 Neut % (Auto) 70.5 Lymph % (Auto) 20.8 Gentry % (Auto) 6.7 Eos % (Auto) 1.2 Baso % (Auto) 0.3 Lymph # (Auto) 1.20 [place]entry # (Auto) 0.4 Eos # (Auto) 0.1 Baso # (Auto) 0.0 Abs Immat Gran (auto) 0.03 Absolute Neuts (auto) 4.1 Absolute Nucleated RBC 0.000 Nucleated RBC % 0.0 PT 14.3 INR 1.1 APTT 30.9 Sodium Potassium Chloride Carbon Dioxide Anion Gap BUN Creatinine Estim Creat Clear Calc Estimated GFR Glucose POC Capillary Glucose 108 H Lactic Acid Calcium Phosphorus Magnesium Ferritin Troponin I Triglycerides Cholesterol LDL Cholesterol Direct HDL Direct Nasal MRSA (PCR) Not detected Hepatitis A IgM Ab Hep Bs Antigen Hep B Core IgM Ab Hepatitis C Ab Screen 05/29/25 05/30/25 05/30/25 20:33 04:27 04:27 WBC 5.4 RBC 3.81 L Hgb 11.8 L Hct 38.2 MCV 100.3 H D MCH 31.0 MCHC 30.9 L RDW 13.5 Plt Count 164 MPV 9.9 Immature Gran % (Auto) 0.4 Neut % (Auto) 60.9 Lymph % (Auto) 27.6 Gentry % (Auto) 9.2 H Eos % (Auto) 1.5 Baso % (Auto) 0.4 Lymph # (Auto) 1.50 Gentry # (Auto) 0.5 Eos # (Auto) 0.1 Baso # (Auto) 0.0 Abs Immat Gran (auto) 0.02 Absolute Neuts (auto) 3.3 Absolute Nucleated RBC 0.000 Nucleated RBC % 0.0 PT 14.8 H INR 1.2 APTT 30.3 79.1 H Cancelled Sodium Potassium Chloride Carbon Dioxide Anion Gap BUN Creatinine Estim Creat Clear Calc Estimated GFR Glucose POC Capillary Glucose Lactic Acid Calcium Phosphorus Magnesium Ferritin Troponin I 5.930 H* D Triglycerides Cholesterol LDL Cholesterol Direct HDL Direct Nasal MRSA (PCR) Hepatitis A IgM Ab Hep Bs Antigen Hep B Core IgM Ab Hepatitis C Ab Screen 05/30/25 05/30/25 05/30/25 04:29 04:40 04:40 WBC 7.4 RBC 3.64 L Hgb 11.2 L Hct 34.6 L MCV 95.1 D MCH 30.8 MCHC 32.4 RDW 13.4 Plt Count 178 MPV 9.8 Immature Gran % (Auto) 0.5 Neut % (Auto) 67.1 Lymph % (Auto) 23.5 Gentry % (Auto) 7.0 Eos % (Auto) 1.8 Baso % (Auto) 0.1 L Lymph # (Auto) 1.74 Gentry # (Auto) 0.5 Eos # (Auto) 0.1 Baso # (Auto) 0.0 Abs Immat Gran (auto) 0.04 H Absolute Neuts (auto) 5.0 Absolute Nucleated RBC 0.000 Nucleated RBC % 0.0 PT INR APTT Sodium 131 L Potassium 3.7 Chloride 101 Carbon Dioxide 24 Anion Gap 6 BUN 6 L Creatinine 0.84 Estim Creat Clear Calc 60 Estimated GFR > 60 Glucose 122 H POC Capillary Glucose Lactic Acid Calcium 9.0 Phosphorus Magnesium 2.1 Ferritin 222.00 Troponin I 7.270 H* Cancelled Triglycerides 122 Cholesterol 237 H LDL Cholesterol Direct 125 HDL Direct 57 Nasal MRSA (PCR) Hepatitis A IgM Ab Negative Hep Bs Antigen Negative Hep B Core IgM Ab Negative Hepatitis C Ab Screen Negative 05/30/25 05/30/25 07:28 11:31 WBC RBC Hgb Hct MCV MCH MCHC RDW Plt Count MPV Immature Gran % (Auto) Neut % (Auto) Lymph % (Auto) Gentry % (Auto) Eos % (Auto) Baso % (Auto) Lymph # (Auto) Gentry # (Auto) Eos # (Auto) Baso # (Auto) Abs Immat Gran (auto) Absolute Neuts (auto) Absolute Nucleated RBC Nucleated RBC % PT INR APTT Sodium Potassium Chloride Carbon Dioxide Anion Gap BUN Creatinine Estim Creat Clear Calc Estimated GFR Glucose POC Capillary Glucose 118 H 106 H Lactic Acid Calcium Phosphorus Magnesium Ferritin Troponin I Triglycerides Cholesterol LDL Cholesterol Direct HDL Direct Nasal MRSA (PCR) Hepatitis A IgM Ab Hep Bs Antigen Hep B Core IgM Ab Hepatitis C Ab Screen ASA Classification/Sedation ASA Classification/Sedation ASA Class: III Emergent: No Risks: Risks, benefits and alternatives explained and patient/family accepted plan for sedation. Patient re-evaluated immediately prior to sedation.
[2025-05-30 12:12] LABS: Partial Thromboplastin Time 65.5 Seconds (22.3-36.8)
[2025-05-30 13:01] LABS: Hemoglobin A1C 5.6 % (<5.7)
--- NOTE | 2025-05-30 15:06 | WPDCARDPROC ---
Cardiac Cath Procedure Note Date of procedure:: 05/30/25 Performing physician:: CATHETERIZATION LABORATORY REPORT Procedure Date: 05/30/2025 Referring Physician: Dr. Mcduffie Anesthesia: Versed and Fentanyl were ordered and given in my presence at 1429, procedure ended at 1501. Supervision of nurse, Mara Patel monitored moderate sedation with 2mg Versed and 200mcg Fentanyl was provided for 32 minutes. Pre-op Diagnosis: Non ST-elevation MT Post-op Diagnosis: Non-STEMI Procedure(s): Left heart catheterization with coronary angiography Access Site: Right radial artery Brief History and Clinical Indications: 74-year-old woman with diabetes, hypertension, and hyperlipidemia presented with chest pain admitted for non ST elevation MT here for cardiac catheterization to define coronary at immediately possible PCI. All risks, benefits and alternatives to left heart catheterization with or without percutaneous coronary intervention was discussed at length with the patient. Risk of complications including but not limited to bleeding, infection, arrhythmia, stroke, worsening kidney function, blood loss, groin hematoma, limb loss, emergency coronary artery bypass grafting, and even were discussed with the patient and all questions were answered. The patient understood and wished to proceed. Time out called, patient name, date of , medical record number, allergies, procedure performed, identify Consultant Internship, patient and staff member concurred with accurate data, procedure carried on. Findings: LEFT HEART CATHETERIZATION FINDINGS: 1. Left main: The left main coronary artery is widely patent without any significant obstructive disease. 2. Left anterior descending: The LAD provides several diagonal branches. D1 has a 99% stenosis at its ostium. There is a napkin ring lesion right after D1 that is at least 90% stenotic. The distal LAD right before it reaches the apex has 50% stenosis prior to bifurcating at the apex. 3. Left circumflex: The left circumflex artery provides several OM branches. OM1 is free of high-grade angio graphic stenosis. OM2 is chronically occluded with faint [id number] collaterals. Om 3 has 40-50% stenosis in its proximal body. The left circumflex between the 1st and 2nd OM has 70% stenosis. 4. Right coronary artery: The RCA is a dominant vessel that has 80% stenosis in its proximal body followed by another focal area of 80% stenosis in the mid body and a area of 50% stenosis in the distal vessel. The remaining branches are free of angiographic high-grade stenosis. 5. Left ventricle: A. End-diastolic pressure 25 mmHg. B. LV gram deferred. C. No significant gradient across aortic valve on catheter pullback. 6. Opening AO pressure 147/70 and closing AO pressure 145/53 7. Right iliofemoral angiogram: No high-grade angiographic stenosis in the visualized portions. High bifurcation. Description of Procedure: Informed consent signed and placed in the chart. Patient transferred to computer laboratory technician room. Prepped and draped in usual sterile fashion. 2% lidocaine injected subcutaneously in right wrist area. 22-gauge venipuncture catheter used to access the right radial artery with the Seldinger technique. 6-FR slender sheath placed in right radial artery. Nitroglycerin 200mcg, Verapamil 2.5mg, and Heparin 5000U was given intraarterial through the sheath. J wire advanced under fluoroscopy. We attempted to access the ascending aorta with a Ultra diagnostic catheter over a J-wire; however given significant tortuosity the procedure was converted to femoral approach. Under ultrasound guidance, the right common femoral artery was accessed via micropuncture technique and exchanged for a 6 [place] sheath under fluoroscopy guidance. 5F JL4 diagnostic catheter engaged Left Main Coronary Artery. 5F JR4 diagnostic catheter engaged Right Coronary Artery Multiple orthogonal angiogram obtained and reviewed 5F Pigtail catheter crossed aortic valve to obtain LVEDP, LV angiogram deferred. Hemostasis was achieved by application of TR band for the right radial artery and Angioseal for the right [employer]. Assessment: Multi-vessel obstructive coronary artery disease Non ST-elevation MT Post Operative Condition: Stable No significant blood loss Disposition: ICU Plan: Can resume heparin drip without bolus at 10:00 p.m. Resume nitro drip as necessary for angina. Continue ASA, beta jeff, and statin Plan for transfer for CTS evaluation Karlos Bustillo Interventional Cardiology
[2025-05-30] MEDS: SODIUM CHLORIDE 0.9% IV 1,000 ML 125 ML IV CONT (15:46)
--- NOTE | 2025-05-30 16:45 | PC.NURSE ---
Addendum entered by Batsheva Chris RN 05/30/25 16:48: Dr Patterson called for an update. Original Note: Dr Bustillo at bedside to speak with the patient. MD recommendation is to transfer to another hospital for further cardiac workup including cardiothoracic surgery. PT resistant to agree due to family event on Tuesday. PT educated that going home at this time could lead to worsening condition due to the extensive cardiac occlusions. PT states she will talk to her children who are on their way to see her. This RN will speak to family when they are here.
[2025-05-30] MEDS: FLUTICASONE/SALMETEROL 115-21 MCG INHALER 1 PUFF 2 PUFF INHALATION (20:33)
[2025-05-30] MEDS: ATORVASTATIN 40 MG TABLET PO (22:57)
[2025-05-31] VITALS (7 sets, daily range): BP systolic 127–140; BP diastolic 66–78; PULSE 82–94; RESP 18–21; TEMP 36.6–36.9; O2SAT 93–97
[2025-05-31 04:04] LABS: Hematocrit 34.3 % (37.0-47.0); Hemoglobin 11.1 g/dL (12.0-15.0); Immature Granulocyte Percent A 1.3 % (0-0.5); Lymphocytes Absolute Auto 1.63 K/mm3 (0.9-3.2); Mean Corpuscular HGB Conc 32.4 g/dl (32-36); Mean Corpuscular Hemoglobin 31.1 pg (26-34); Mean Corpuscular Volume 96.1 fl (80-100); Nucleated Red Blood Cells Absolute Auto 0.000 K/mm3 (0.0-0.012); Nucleated Red Blood Cells Perc 0.0 % (0.0-0.2); Platelet Count Result 162 k/mm3 (150-375); Red Blood Count 3.57 M/mm3 (4.2-5.4); White Blood Count 7.7 K/mm3 (4.5-10.0)
[2025-05-31 04:19] LABS: Partial Thromboplastin Time 27.4 Seconds (22.3-36.8)
[2025-05-31 04:28] LABS: Alanine Aminotransferase 29 U/L (6-35); Albumin Level 3.6 g/dL (3.5-5.1); Alkaline Phosphatase 64 U/L (38-126); Anion Gap 4 mmol/L (4-12); Aspartate Amino Transferase 86 U/L (14-36); Bilirubin,Total 0.6 mg/dL (0.2-1.3); Blood Urea Nitrogen 5 mg/dL (7-17); Calcium 8.4 mg/dL (8.4-10.2); Carbon Dioxide 23 mmol/L (22-30); Chloride 105 mmol/L (98-107); Estimated CRCL calculation 57 ml/min; Estimated Glomerular Filt Rate > 60; Glucose 115 mg/dL (65-110); Magnesium 2.0 mg/dL (1.6-2.3); Potassium 3.8 mmol/L (3.4-5.0); Sodium 132 mmol/L (137-145); Total Protein 8.3 g/dL (6.3-8.2)
[2025-05-31] MEDS: FLUTICASONE/SALMETEROL 115-21 MCG INHALER 1 PUFF 2 PUFF INHALATION (08:07)
[2025-05-31] MEDS: METOPROLOL SUCCINATE EXT REL 25 MG TABCR PO (08:18)
[2025-05-31] MEDS: cefTRIAXone 1 GM in SODIUM CHLORIDE 0.9% IV 50 ML 100 ML IVPB (08:19)
[2025-05-31] MEDS: ASPIRIN 81 MG ENTERIC TABLET PO (08:19)
[2025-05-31] MEDS: PANTOPRAZOLE 40 MG TABLET PO (08:19)
[2025-05-31] MEDS: EZETIMIBE 10 MG TABLET PO (08:19)
--- NOTE | 2025-05-31 08:57 | P.PNINT_ITS ---
Progress Note: A&P Assessment and Plan (1) NSTEMI (non-ST elevated myocardial infarction): Code(s): I21.4 - Non-ST elevation (NSTEMI) myocardial infarction Status: Acute Assessment and Plan: Patient presented with chest pain radiating to the left arm, 9/10 in intensity, associated with nausea, vomiting, shortness of breath -troponins went from<0.012 to 7.270 -EKG did not show any ST elevation -off nitroglycerin infusion -05/30: status post coronary angiogram, multivessel obstructive coronary artery disease, patient is going to be transferred to [facility] for cardiothoracic surgery evaluation -05/29: Echocardiogram showed EF of 60-65%, grade 1 diastolic dysfunction mild pulmonary hypertension with RVSP of 41 mmHg, -patient denies any alcohol, tobacco or illicit drug use (2) Chest pain: Code(s): R07.9 - Chest pain, unspecified Status: Acute Assessment and Plan: As above (3) Diabetes mellitus: Code(s): E11.9 - Type 2 diabetes mellitus without complications Status: Acute Assessment and Plan: Continue Accu-Cheks and sliding scale insulin -hemoglobin A1c is 5.6 this admission (4) Asthma: Code(s): J45.909 - Unspecified asthma, uncomplicated Status: Acute Assessment and Plan: Continue Advair (5) Hypokalemia: Code(s): E87.6 - Hypokalemia Status: Acute Assessment and Plan: Potassium is normalized after being replaced Plan DVT prophylaxis: Heparin infusion Stress ulcer prophylaxis: Not indicated Nutrition: Heart healthy diet Code Status: Full code Critical Care Time Spent: 32 minutes Patient going to be transferred to [facility] follows cardiothoracic surgery evaluation given her multivessel obstructive coronary artery disease Due to a high probability of clinically significant, life threatening det erioration, the patient required my highest level of preparedness to intervene emergently and I personally spent this critical care time directly and personally managing the patient. This critical care time included obtaining a history; examining the patient; pulse oximetry; ordering and review of studies; arranging urgent treatment with development of a management plan; evaluation of patient's response to treatment; frequent reassessment; and discussions with other providers. It was exclusive of separately billable procedures and treating other patients and teaching time. Please see Assessment and Plan section and the rest of the note for further information on patient assessment and treatment This dictation may have been done utilizing a voice recognition system. Attempts have been made to correct errors. However, there may be uncorrected grammatical, spelling, and recognitions errors present. Subjective Date/time seen: 05/31/25 08:57 Interval history: Reason for consult: Chest pain, NSTEMI requiring heparin nitroglycerin infusion, 05/30: Post status post cardiac catheterization: Multivessel obstructive coronary artery disease, 05/31/2025: Patient seen and examined the ICU, remains chest pain-free, on room air with adequate O2 sats, denies any abdominal pain, nausea or vomiting at this time. Hemodynamically stable, adequate urine output Review of Systems Review of Systems: All systems reviewed & are unremarkable except as noted in HPI and below Exam Narrative: General: Pleasant female in no acute distress HEENT:? Pupils equal and reactive, sclerae is clear Neck:? Supple Respiratory:? Clear to auscultation bilaterally, no wheezing, adequate air entry Cardiac:? S1-S2 normal, regular rate and rhythm Abdomen:? Soft, nontender, nondistended, normoactive bowel sounds Extremities:? No edema, palpable pedal pulses Neuro:? Patient is awake, alert, oriented x3, nonfocal, answers to questions appropriately and follows simple commands in all extremities Skin:? No skin lesions noted Psych:? Normal mentation and affect Objective Data Vital Signs Vital Signs: Vital Signs - 24 hr 05/30/25 08:58 05/30/25 09:46 05/30/25 10:00 Temperature Pulse Rate 74 79 Pulse Rate [Bilateral Pedal (Dorsalis Pedis) Palpation] Pulse Rate [Bilateral Radial Palpation] Respiratory Rate Blood Pressure Pulse Oximetry 93 Oxygen Delivery Room Air 05/30/25 10:00 05/30/25 10:00 05/30/25 12:00 Temperature 98.6 F Pulse Rate 75 75 76 Pulse Rate [Bilateral Pedal (Dorsalis Pedis) Palpation] Pulse Rate [Bilateral Radial Palpation] Respiratory Rate 22 H 22 H Blood Pressure 128/64 128/64 118/62 Pulse Oximetry 94 97 Oxygen Delivery 05/30/25 12:00 05/30/25 12:00 05/30/25 12:00 Temperature Pulse Rate 79 76 Pulse Rate [Bilateral Pedal (Dorsalis Pedis) Palpation] Pulse Rate [Bilateral Radial Palpation] Respiratory Rate Blood Pressure 118/62 Pulse Oximetry 98 Oxygen Delivery Room Air 05/30/25 15:20 05/30/25 16:00 05/30/25 16:00 Temperature Pulse Rate 72 77 Pulse Rate [Bilateral Pedal (Dorsalis Pedis) Palpation] 72 Pulse Rate [Bilateral Radial Palpation] 72 Respiratory Rate Blood Pressure 136/58 L Pulse Oximetry 97 Oxygen Delivery Room Air 05/30/25 16:00 05/30/25 16:00 05/30/25 16:50 Temperature 97.8 F Pulse Rate 74 70 72 Pulse Rate [Bilateral Pedal (Dorsalis Pedis) Palpation] Pulse Rate [Bilateral Radial Palpation] Respiratory Rate 16 24 H Blood Pressure 131/62 137/54 L 121/99 H Pulse Oximetry 100 98 Oxygen Delivery 05/30/25 17:50 05/30/25 18:00 05/30/25 18:00 Temperature Pulse Rate 87 89 Pulse Rate [Bilateral Pedal (Dorsalis Pedis) Palpation] Pulse Rate [Bilateral Radial Palpation] Respiratory Rate Blood Pressure 141/95 H 151/72 H Pulse Oximetry Oxygen Delivery 05/30/25 18:00 05/30/25 18:50 05/30/25 19:48 Temperature Pulse Rate 85 80 83 Pulse Rate [Bilateral Pedal (Dorsalis Pedis) Palpation] Pulse Rate [Bilateral Radial Palpation] Respiratory Rate 21 H 20 Blood Pressure 148/68 H 144/65 H Pulse Oximetry 98 95 Oxygen Delivery 05/30/25 19:51 05/30/25 20:00 05/30/25 20:00 Temperature 98.1 F Pulse Rate 83 83 85 Pulse Rate [Bilateral Pedal (Dorsalis Pedis) Palpation] Pulse Rate [Bilateral Radial Palpation] Respiratory Rate 16 16 Blood Pressure 154/74 H Pulse Oximetry 98 98 Oxygen Delivery Room Air 05/30/25 20:00 05/30/25 20:33 05/30/25 22:00 Temperature Pulse Rate 85 85 Pulse Rate [Bilateral Pedal (Dorsalis Pedis) Palpation] Pulse Rate [Bilateral Radial Palpation] Respiratory Rate Blood Pressure 154/74 H Pulse Oximetry 96 Oxygen Delivery Room Air 05/30/25 22:00 05/31/25 00:00 05/31/25 00:00 Temperature Pulse Rate 85 90 90 Pulse Rate [Bilateral Pedal (Dorsalis Pedis) Palpation] Pulse Rate [Bilateral Radial Palpation] Respiratory Rate 18 18 Blood Pressure 145/77 H Pulse Oximetry 96 93 Oxygen Delivery Room Air 05/31/25 00:00 05/31/25 02:00 05/31/25 02:00 Temperature 97.9 F 98.4 F Pulse Rate 90 90 90 Pulse Rate [Bilateral Pedal (Dorsalis Pedis) Palpation] Pulse Rate [Bilateral Radial Palpation] Respiratory Rate 19 18 Blood Pressure 127/66 136/68 Pulse Oximetry 93 95 Oxygen Delivery 05/31/25 04:00 05/31/25 04:00 05/31/25 04:00 Temperature 98.4 F Pulse Rate 90 90 91 Pulse Rate [Bilateral Pedal (Dorsalis Pedis) Palpation] Pulse Rate [Bilateral Radial Palpation] Respiratory Rate 18 20 Blood Pressure 140/70 Pulse Oximetry 95 94 Oxygen Delivery Room Air 05/31/25 06:00 05/31/25 06:00 05/31/25 07:59 Temperature 98.3 F 98.3 F Pulse Rate 82 86 91 Pulse Rate [Bilateral Pedal (Dorsalis Pedis) Palpation] Pulse Rate [Bilateral Radial Palpation] Respiratory Rate 20 21 H Blood Pressure 137/78 138/73 Pulse Oximetry 96 97 Oxygen Delivery 05/31/25 08:00 05/31/25 08:07 05/31/25 08:07 Temperature Pulse Rate 89 89 Pulse Rate [Bilateral Pedal (Dorsalis Pedis) Palpation] Pulse Rate [Bilateral Radial Palpation] Respiratory Rate 20 20 Blood Pressure Pulse Oximetry 95 Oxygen Delivery Room Air Room Air 05/31/25 08:18 Temperature Pulse Rate 94 Pulse Rate [Bilateral Pedal (Dorsalis Pedis) Palpation] Pulse Rate [Bilateral Radial Palpation] Respiratory Rate Blood Pressure Pulse Oximetry Oxygen Delivery Intake/Output Intake/Output: Intake & Output 05/28/25 05/29/25 05/30/25 05/31/25 23:59 23:59 23:59 23:59 Intake Total 1278.6 727.5 379.6 Output Total 300 1600 1200 Balance 978.6 -872.5 -820.4 Meds/Results Radiology Results: ITS Impressions Chest X-Ray 05/29/25 07:40 IMPRESSION: 1: NO ACUTE CARDIOPULMONARY DISEASE. Abdomen/Pelvis CT 05/29/25 08:12 IMPRESSION: 1. No acute abdominal abnormality. 2: Cirrhosis of the liver with fatty infiltration. 3: Status post cholecystectomy with expected prominence of the bile ducts. Labs Labs: Laboratory Results - last 24 hr 05/30/25 05/30/25 05/30/25 04:40 11:31 11:39 WBC RBC Hgb Hct MCV MCH MCHC RDW Plt Count MPV Immature Gran % (Auto) Neut % (Auto) Lymph % (Auto) Boundary % (Auto) Eos % (Auto) Baso % (Auto) Lymph # (Auto) Boundary # (Auto) Eos # (Auto) Baso # (Auto) Abs Immat Gran (auto) Absolute Neuts (auto) Absolute Nucleated RBC Nucleated RBC % APTT 65.5 H Sodium Potassium Chloride Carbon Dioxide Anion Gap BUN Creatinine Estim Creat Clear Calc Estimated GFR Glucose POC Capillary Glucose 106 H Hemoglobin A1c 5.6 Calcium Phosphorus Magnesium Total Bilirubin AST ALT Alkaline Phosphatase Total Protein Albumin 05/30/25 05/31/25 05/31/25 15:52 03:51 07:06 WBC 7.7 RBC 3.57 L Hgb 11.1 L Hct 34.3 L MCV 96.1 MCH 31.1 MCHC 32.4 RDW 13.4 Plt Count 162 MPV 9.9 Immature Gran % (Auto) 1.3 H Neut % (Auto) 65.2 Lymph % (Auto) 21.3 Boundary % (Auto) 10.2 H Eos % (Auto) 1.7 Baso % (Auto) 0.3 Lymph # (Auto) 1.63 Boundary # (Auto) 0.8 H Eos # (Auto) 0.1 Baso # (Auto) 0.0 Abs Immat Gran (auto) 0.10 H Absolute Neuts (auto) 5.0 Absolute Nucleated RBC 0.000 Nucleated RBC % 0.0 APTT 27.4 Sodium 132 L Potassium 3.8 Chloride 105 Carbon Dioxide 23 Anion Gap 4 BUN 5 L Creatinine 0.89 Estim Creat Clear Calc 57 Estimated GFR > 60 Glucose 115 H POC Capillary Glucose 89 120 H Hemoglobin A1c Calcium 8.4 Phosphorus 3.0 Magnesium 2.0 Total Bilirubin 0.6 AST 86 H ALT 29 Alkaline Phosphatase 64 Total Protein 8.3 H Albumin 3.6 Quality VTE Prophylaxis VTE prophylaxis: pharmacologic ordered
--- NOTE | 2025-06-12 12:39 | P.TS_ITS ---
Transfer Discharge Sum: Prov Provider Date of admission: 05/29/25 14:50 Primary care physician: Daly ServinOrtiz Admitting clinician: Uziel Chen MD Attending physician on admission: Jia House Consults: 05/29/25 13:09 Consult to Physician Routine Comment: Consulting Provider: Spike Patterson Reason for consultation: n stemi Has provider been notified: Yes 05/30/25 Consult to Physician Routine Comment: left voicemail with Dr. Bustillo @[id number](ER,US) Consulting Provider: Karlos Bustillo will call clerk/MD group to consult: HCG Reason for consultation: [facility] Has provider been notified: Yes Receiving physician/facility: Dr. Salas at [facility] DS: Admitting Diagnosis Discharge Date 05/31/[address]-elevation MT DS: Discharge Diagnosis Discharge Diagnosis (1) NSTEMI (non-ST elevated myocardial infarction): Code(s): I21.4 - Non-ST elevation (NSTEMI) myocardial infarction Status: Acute Assessment and Plan: cardiac catheterization revealed multivessel obstructive CAD and in the setting of diabetes and active chest discomfort on nitroglycerin drip and heparin drip, it was recommended that patient transferred to facility with CT surgery for evaluation of surgical revascularization Plan patient was transferred to [facility] for surgical evaluation of CABG Transfer Discharge Sum: Med Medications Active and Home Medications: Home Medications cyanocobalamin (vitamin B-12) 2,500 mcg sublingual tablet (Vitamin B-12) 2,500 mcg sublingual DAILY 03/06/20 [History Confirmed 05/29/25] aspirin 81 mg tablet,delayed release (Adult Aspirin Regimen) 81 mg PO DAILY 04/28/20 [History Confirmed 05/29/25] hydrochlorothiazide 25 mg tablet 25 mg PO DAILY 04/28/20 [History Confirmed 05/29/25] metformin 850 mg tablet 850 mg PO BID 04/28/20 [History Confirmed 05/29/25] ezetimibe 10 mg tablet 10 mg PO DAILY 05/01/20 [History Confirmed 05/29/25] memantine 10 mg tablet 10 mg PO BID 05/01/20 [History Confirmed 05/29/25] metoprolol succinate 200 mg tablet,extended release 24 hr 100 mg PO DAILY 05/01/20 [History Confirmed 05/29/25] fluticasone propionate 50 mcg/actuation nasal spray,suspension (Flonase Allergy Relief) 1 spray intranasal BID #16 grams 08/02/22 [Rx Confirmed 05/29/25] fluticasone furoate 100 mcg-vilanterol 25 mcg/dose inhalation powder (Breo Ellipta) 1 inh inhalation DAILY 03/28/23 [History Confirmed 05/29/25] ascorbate calcium (vitamin C) 500 mg tablet 500 mg PO DAILY 08/23/23 [History Confirmed 05/29/25] vitamin E (dl, acetate) 45 mg (100 unit) capsule 45 mg PO DAILY 08/23/23 [History Confirmed 05/29/25] semaglutide 0.25 mg or 0.5 mg (2 mg/3 mL) subcutaneous pen injector (Ozempic) 0.25 mg subcut WEEKLY 10/10/23 [History Confirmed 05/29/25] donepezil 10 mg tablet 10 mg PO DAILY 05/29/25 [History Confirmed 05/29/25] Transfer Discharge Sum: Hosp Hospital Course Hospital course: Macey Pratt is a 74 year old female with diabetes who presented with chest discomfort and clinical presentation consistent with non ST-elevation MT for which cardiac catheterization was performed showing multivessel obstructive coronary artery disease for which the patient was transferred to [facility] for surgical revascularization in the setting of active chest pain on heparin drip and nitroglycerin drip. Prior to transfer, patient was hemodynamically stable and chest pain controlled. Patient Condition: Stable Time Spent with Patient Time attestation: Total time spent providing and/or coordinating transfer services: Total time spent: Greater than 30 minutes Exam Const: General: comfortable HENMT: Mouth: Yes moist mucous membranes Eyes: EOM: EOMs intact bilaterally Neck: Neck: no JVD Resp: Effort & Inspection: normal respiratory effort Auscultation: clear to auscultation bilaterally Cardio: Rate: regular rate Rhythm: regular rhythm GI: GI Palp: Yes Soft to palpation Neuro: Speech: normal speech
== END 2025-05-31 08:35 | disposition short-term general hospital (02) | DRG 282 ==
LOC: ANHED 13:49 → ANHIMU 14:01 → ANHICU 15:22
PROVIDERS: Internal Medicine; Nurse Practitioner Acute Care; Admitting Provider Family Medicine; Emergency Provider Emergency Medicine; PCP Internal Medicine Infectious Disease; Visit Provider Internal Medicine
PROC: 4A023N7 Measurement of Cardiac Sampling and Pressure, Left Heart, Percutaneous Approach (ICD-10-PCS; CPT 93452; principal; 2025-05-30 13:00)
PROC: 4A023N7 Measurement of Cardiac Sampling and Pressure, Left Heart, Percutaneous Approach (ICD-10-PCS; CPT 36140; 2025-05-30 13:00)
PROC: 4A023N7 Measurement of Cardiac Sampling and Pressure, Left Heart, Percutaneous Approach (ICD-10-PCS; 2025-05-30 13:00)
DX: I21.4 Non-ST elevation (NSTEMI) myocardial infarction (principal); I25.10 Atherosclerotic heart disease of native coronary artery without angina pectoris; E87.6 Hypokalemia; K21.9 Gastro-esophageal reflux disease without esophagitis; I10 Essential (primary) hypertension; J45.909 Unspecified asthma, uncomplicated; E78.5 Hyperlipidemia, unspecified; K74.60 Unspecified cirrhosis of liver; Z79.82 Long term (current) use of aspirin
CPT/HCPCS: 36140; 36415; 71046; 74177; 80048; 80053; 80061; 80074; 81001; 82728; 82948; 83036; 83605; 83690; 83735; 83880; 84100; 84484; 85025; 85610; 85730; 87086; 87641; 93005; 93306; 93458; 94640; 96361; 96374; 96375; 96376; 99285; A9270; C1760; C1769; C1887; C1894; G0269; G0378; J0696; J1171; J1644; J2003; J2250; J2305; J2405; J3010; J7030; J7040; Q9967